=== PATIENT | female | born 1940 | race Caucasian/White ===

== ENCOUNTER → 2020-04-02 08:06 | Outpatient (BNVA) | payer MEDICARE, SELFPAY | PROVIDERS: PCP Internal Medicine; Visit Provider Hospitalist | DX: R91.8 Other nonspecific abnormal finding of lung field (principal); J18.9 Pneumonia, unspecified organism; J45.909 Unspecified asthma, uncomplicated; D80.1 Nonfamilial hypogammaglobulinemia; J31.0 Chronic rhinitis | CPT/HCPCS: 99212 ==

== ENCOUNTER → 2020-07-29 08:10 | Outpatient (BNVA) | payer MEDICARE, SELFPAY | PROVIDERS: PCP Internal Medicine; Visit Provider Hospitalist | DX: J31.0 Chronic rhinitis (principal); D80.1 Nonfamilial hypogammaglobulinemia; J45.50 Severe persistent asthma, uncomplicated; J18.9 Pneumonia, unspecified organism; R91.8 Other nonspecific abnormal finding of lung field | CPT/HCPCS: 99212 ==

== ENCOUNTER 2020-11-25 13:05 | Outpatient (REF) | payer MEDICARE, SELFPAY ==
--- NOTE | ~2020-11-25 | CT_ITS ---
EXAMINATION: CT CHEST WITHOUT CONTRAST CLINICAL INFORMATION: Pulmonary nodule COMPARISON: Previous chest x-ray February 2019 TECHNIQUE: Multidetector volumetric CT imaging of the chest was done. Axial MIP volume rendering provided. Sagittal and coronal reformatted images were obtained. This CT examination was performed using dose optimization techniques as appropriate, variously including the following: *Automated exposure control *Adjustment of mA and/or kV according to patient size (this includes techniques or standardized protocols for targeted exams where dose is matched to indication/reason for exam; i.e. extremities or head) *Use of iterative reconstruction technique DLP: 208 mGy-cm FINDINGS: LUNGS: There is a 1.3 cm triangular-shaped right lower lobe nodule axial image 322 series 5. There is mild biapical pleural and parenchymal scarring. There is evidence of mild airways disease with areas of scattered areas of bronchial soft tissue opacification and increased peribronchial attenuation.. There are numerous small bilateral micronodules, calcified and noncalcified. Largest pulmonary nodules are 3 mm calcified right lower lobe nodules axial image 203 and 205 series 5 noncalcified left lower lobe 3 mm nodule axial image 238 series 5.. MEDIASTINUM: There are no enlarged hilar or mediastinal lymph nodes. The heart does not appear enlarged. There is mild coronary artery calcification. There is a trace pericardial effusion. There is question of low attenuation mediastinal lymphadenopathy persists fluid in the superior pericardial recess anterior to the left mainstem bronchus. This area measures approximately 1 x 1.8 cm Axial image 27 series 3. PLEURA: There is no pleural effusion. No pleural mass or thickening. AXILLA: No lymphadenopathy. UPPER ABDOMEN: There are liver cysts. OSSEOUS STRUCTURES: There are degenerative changes of the spine. There is a 1 x 2 cm sclerotic lesion in the left scapula. CT/CT chest wo con IMPRESSION: 1.3 cm triangular shaped right lower lobe nodule. Additional smaller calcified and noncalcified micronodules, largest measuring 3 mm. Question low-attenuation mediastinal lymph node(s) anterior to the left mainstem bronchus versus fluid in the superior pericardial recess. Coronary artery calcification. Liver cysts.
== END 2020-11-25 13:06 | disposition home or self-care (01) ==
LOC: HO.CT 13:05
PROVIDERS: Visit Provider Hospitalist
DX: R91.8 Other nonspecific abnormal finding of lung field (principal)
CPT/HCPCS: 71250

== ENCOUNTER → 2021-01-19 08:14 | Outpatient (BNVA) | payer MEDICARE, SELFPAY | PROVIDERS: PCP Internal Medicine; Visit Provider Hospitalist | DX: R91.8 Other nonspecific abnormal finding of lung field (principal); J45.50 Severe persistent asthma, uncomplicated; J31.0 Chronic rhinitis; D80.1 Nonfamilial hypogammaglobulinemia; J18.9 Pneumonia, unspecified organism | CPT/HCPCS: 99212 ==

== ENCOUNTER 2021-02-27 07:04 | Outpatient (REF) | payer MEDICARE, SELFPAY ==
--- NOTE | ~2021-02-27 | CT_ITS ---
EXAMINATION: CT CHEST WITHOUT CONTRAST CLINICAL INFORMATION: Follow-up pulmonary nodules. COMPARISON: Previous chest x-ray most recent February [address] November 2020. TECHNIQUE: Multidetector volumetric CT imaging of the chest was done. Axial MIP volume rendering provided. Sagittal and coronal reformatted images were obtained. This CT examination was performed using dose optimization techniques as appropriate, variously including the following: *Automated exposure control *Adjustment of mA and/or kV according to patient size (this includes techniques or standardized protocols for targeted exams where dose is matched to indication/reason for exam; i.e. extremities or head) *Use of iterative reconstruction technique DLP: 112 mGy-cm FINDINGS: LUNGS: There is biapical pleural and parenchymal scarring. There is a new 5 mm right upper lobe nodule axial image 251 series 7. There is a new 4 mm left upper lobe nodule axial image 205 series 7. The previously identified irregularly-shaped 1.3 cm right lower lobe nodule on November 2020 exam is no longer seen. The remaining numerous small calcified and noncalcified pulmonary nodules or micronodules are otherwise stable. MEDIASTINUM: The heart does not appear enlarged. There is a trace pericardial effusion that is stable. There is a small amount of fluid seen in the superior pericardial recess that is stable. There are no enlarged hilar or mediastinal lymph nodes. PLEURA: There is no pleural effusion. No pleural mass or thickening. AXILLA: No lymphadenopathy. UPPER ABDOMEN: There are liver cysts that are stable. The largest measures 2 x 3 cm in the lateral segment of the left lobe. There may be diverticulosis of the colon. OSSEOUS STRUCTURES: There are mild degenerative changes of the spine. There is a stable sclerotic lesion in the left scapula. CT/CT chest wo con IMPRESSION: Resolved 1.3 cm triangular-shaped right lower lobe nodule from November 2020. New bilateral upper lobe nodules, largest measuring 5 mm. Infectious, inflammatory and neoplastic processes should be considered. Waxing and waning appearance favors an infectious or inflammatory process. Stable smaller nodules or micronodules. Stable biapical pleural and parenchymal scarring.
== END 2021-02-27 07:05 | disposition home or self-care (01) ==
LOC: HO.CT 07:04
PROVIDERS: PCP Internal Medicine; Visit Provider Hospitalist
DX: R91.8 Other nonspecific abnormal finding of lung field (principal)
CPT/HCPCS: 71250

== ENCOUNTER → 2021-03-03 15:01 | Outpatient (BNVA) | payer MEDICARE, SELFPAY | PROVIDERS: PCP Internal Medicine; Visit Provider Hospitalist | DX: J31.0 Chronic rhinitis (principal); J45.50 Severe persistent asthma, uncomplicated; D80.1 Nonfamilial hypogammaglobulinemia; R91.8 Other nonspecific abnormal finding of lung field | CPT/HCPCS: 99212 ==

== ENCOUNTER → 2021-09-02 08:16 | Outpatient (BNVA) | payer MEDICARE, SELFPAY | PROVIDERS: PCP Internal Medicine; Visit Provider Hospitalist | DX: R91.8 Other nonspecific abnormal finding of lung field (principal); J45.50 Severe persistent asthma, uncomplicated; J31.0 Chronic rhinitis; D80.1 Nonfamilial hypogammaglobulinemia | CPT/HCPCS: 99212 ==

== ENCOUNTER 2022-02-08 08:53 | Outpatient (REF) | payer MEDICARE, SELFPAY ==
--- NOTE | ~2022-02-08 | CT_ITS ---
EXAMINATION: CT CHEST WITHOUT CONTRAST CLINICAL INFORMATION: Follow-up pulmonary nodules COMPARISON: Previous CT recent February 2021 TECHNIQUE: Multidetector volumetric CT imaging of the chest was done. Axial MIP volume rendering provided. Sagittal and coronal reformatted images were obtained. This CT examination was performed using dose optimization techniques as appropriate, variously including the following: *Automated exposure control *Adjustment of mA and/or kV according to patient size (this includes techniques or standardized protocols for targeted exams where dose is matched to indication/reason for exam; i.e. 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 There are new clustered posterior segment right upper lobe small nodules, largest nodule measuring 2 to 3 mm for example axial image 205 series 7. There are new clustered left lower lobe nodules, largest measuring 3 mm for example axial image 3:30 series 7. There are several new adjacent are slightly clustered semisolid right lower lobe nodules, largest measuring 4 mm axial image 239 series 7. There are several new clustered right upper lobe nodules, largest measuring 4 mm axial image 100 series 7. Previously identified 7 mm right upper lobe nodule axial image 253 series 7 is no longer seen. There are scattered new small groundglass attenuation areas in the right lower lobe largest measuring 1 cm axial image 247 series 7. MEDIASTINUM: The mediastinum is normal. CORONARY ARTERY CALCIFICATION: None visualized on this study. PLEURA: There is no pleural effusion. No pleural mass or thickening. AXILLA: No lymphadenopathy. UPPER ABDOMEN: Stable liver lesions probably representing cysts. Diverticulosis of the colon. OSSEOUS STRUCTURES: Degenerative changes of the spine. CT/CT chest wo IV con IMPRESSION: Waxing and waning appearance of bilateral pulmonary nodules. This favors an infectious or inflammatory process. There are multiple new adjacent or clustered pulmonary nodules with tree in bud appearance suggestive of airways disease, greatest in the right upper and left lower lobes. New groundglass attenuation areas in the right lower lobe. Fleischner guidelines were followed.
== END 2022-02-08 08:54 | disposition home or self-care (01) ==
LOC: HO.CT 08:53
PROVIDERS: PCP Internal Medicine; Visit Provider Hospitalist
DX: R91.8 Other nonspecific abnormal finding of lung field (principal)
CPT/HCPCS: 71250

== ENCOUNTER → 2022-03-24 08:16 | Outpatient (BNVA) | payer MEDICARE, SELFPAY | PROVIDERS: PCP Internal Medicine; Visit Provider Hospitalist | DX: R91.8 Other nonspecific abnormal finding of lung field (principal); J45.50 Severe persistent asthma, uncomplicated; J31.0 Chronic rhinitis; D80.1 Nonfamilial hypogammaglobulinemia | CPT/HCPCS: 99212 ==

== ENCOUNTER → 2022-09-28 08:19 | Outpatient (BNVA) | payer MEDICARE, SELFPAY | PROVIDERS: PCP Internal Medicine; Visit Provider Hospitalist | DX: J45.50 Severe persistent asthma, uncomplicated (principal); J31.0 Chronic rhinitis; R91.8 Other nonspecific abnormal finding of lung field; D80.1 Nonfamilial hypogammaglobulinemia | CPT/HCPCS: 99212 ==

== ENCOUNTER 2023-02-21 08:24 | Outpatient (REF) | payer MEDICARE, SELFPAY ==
--- NOTE | ~2023-02-21 | CT_ITS ---
EXAMINATION: CT CHEST WITHOUT CONTRAST CLINICAL INFORMATION: Follow-up pulmonary nodules COMPARISON: Previous chest CT most recent January 2022 TECHNIQUE: Multidetector volumetric CT imaging of the chest was done. Axial MIP volume rendering provided. Sagittal and coronal reformatted images were obtained. This CT examination was performed using dose optimization techniques as appropriate, variously including the following: *Automated exposure control *Adjustment of mA and/or kV according to patient size (this includes techniques or standardized protocols for targeted exams where dose is matched to indication/reason for exam; i.e. extremities or head) *Use of iterative reconstruction technique DLP: 114 mGy-cm FINDINGS: LUNGS: Mild biapical pleural parenchymal scarring. Clustered peribronchial nodules and increased peribronchial attenuation and bronchial wall thickening in the right upper lobe axial image 138 series 5 increased from previous exam. Clustered peribronchial nodules or tree-in-bud appearance right upper lobe probably representing airways disease axial image 206 series 5. This is still seen but overall decreased in density and decreased size in nodules compared to exam. There is a new 4 x 6 mm left upper lobe nodule with surrounding groundglass attenuation axial image 219 series 5. Including surrounding groundglass attenuation this measures up to 1.2 cm in diameter There are adjacent more inferior clustered peribronchial nodules for example axial image similar to previous exam. Similar clustered peribronchial nodules in the inferior segment of the lingula axial image 367 series 5 similar to 2022 exam. Clustered peribronchial nodules and left lower lobe axial image 3:30 series 5 slightly improved from 2022 exam. New or increasing mild bronchial wall thickening, increased bronchial attenuation and small adjacent peribronchial nodules in the right lower lobe example axial image 392 series 5. Scattered areas of scarring or subsegmental atelectasis. MEDIASTINUM: The mediastinum is normal. CORONARY ARTERY CALCIFICATION: Mild PLEURA: There is no pleural effusion. No pleural mass or thickening. AXILLA: No lymphadenopathy. UPPER ABDOMEN: Liver cysts. OSSEOUS STRUCTURES: Mild degenerative changes of the spine. CT/CT chest wo IV con IMPRESSION: Waxing and waning appearance of clustered peribronchial nodules/likely airways disease throughout both lungs. There is a new 4 x 6 mm solid left upper lobe nodule with surrounding groundglass attenuation, including surrounding groundglass attenuation measuring up to 1.[address] follow-up of this finding recommended recommended. Fleischner guidelines were followed.
== END 2023-02-21 08:25 | disposition home or self-care (01) ==
LOC: HO.CT 08:24
PROVIDERS: PCP Internal Medicine; Visit Provider Hospitalist
DX: R91.8 Other nonspecific abnormal finding of lung field (principal)
CPT/HCPCS: 71250

== ENCOUNTER 2023-04-04 10:55 | Outpatient (AMB) | payer MEDICARE, SELFPAY ==
[2023-04-04 11:11] VITALS: PULSE 76; O2SAT 93; BMI 24.5
--- NOTE | 2023-04-04 11:11 | MHC.OFFVIS ---
Intake Vital Signs 04/04/23 11:11 Height 5 ft 2 in Weight 134 lb BMI 24.5 Pulse 76 Pulse Source Pulse Oximeter Pulse Oximetry (%) 93 Oxygen Delivery Method Room Air Intake Visit Reasons: Pulm Nodules Outpatient Dietitian Required: No Allergies alendronate sodium [Fosamax] Allergy (Severe, Verified 04/04/23 11:12) Rash and Hives doxycycline Allergy (Severe, Verified 04/04/23 11:12) Numbness Lips epinephrine Allergy (Severe, Verified 04/04/23 11:12) Tachycardia morphine Allergy (Severe, Verified 04/04/23 11:12) Vomiting terazosin Allergy (Severe, Verified 04/04/23 11:12) Rash and Hives Avelox Allergy (Severe, Uncoded 04/04/23 11:12) Anaphylaxis Erythromycin Allergy (Severe, Uncoded 04/04/23 11:12) Cramping Floxin Allergy (Severe, Uncoded 04/04/23 11:12) Rash PCN Allergy (Severe, Uncoded 04/04/23 11:12) Rash HPI HPI Comments History of Present Illness Details The patient is a 83 y/o woman with a history of asthma, moderate persistent. Recently she had pulmonary function studies and reviewed in. Appears that she has a mild obstruction. In addition to that her lung volumes have slightly decreased and has a mild diffusion impairment. I need to get her previous PFTs to review and compare. More recently she was exposed to sick contact, great grandchild. She did spend close time with him. After that she noticed that she started developing URI like symptoms. She did have any earache. Denies sore throat. Stat have worsening wheezing coughing. She went to her primary care doctor in order a prednisone taper in addition to Z-Silverio. She took half dose of the prednisone and did not take the zythromax. She went to see her primary care doctor she was given levofloxacin and also prednisone again. She did have a chest x-ray that was read as normal however, after I looked that she did have a left lower lobe opacity. She also had volume loss on the left side. At some point we need to repeat this x-ray. She had blood work although it we do not have all the blood work. D-dimer appear to be less than 0.5. She also had blood cultures which were no growth today. She is still using the Dulera. She felt better when she was using the Perforomist and budesonide, but, she was also using the Dulera in conjunction which is too much long-acting beta agonist. We did review her blood work her IgE level was normal and her eosinophil level were normal suggesting that she is not a candidate for biologic therapy. 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 At this point will try prophylactic antibiotics to treat her chronic bronchitis. We did talk about IgG infusions. However, we really have to weigh the risks and benefits. She did follow-up with her primary care doctor and based on her abnormal chest x-ray and her persistent symptoms in the lack of response she did have a CT scan of the chest done radiology imaging which I personally reviewed. It demonstrated multiple ground-glass the nodular densities in a bronchovascular distribution with some tree-in-bud in these were bilateral primarily in the periphery. No significant lymphadenopathy. These appear to be typical of a lower respiratory viral infection. Sometimes postviral bacterial infections can also manifest and this form. Less likely malignancy. Inflammatory conditions are also possible. The patient does have arthritis and also rash. 09/28/2022 the patient is here for pulmonary follow-up visit. Overall she is doing well from a respiratory status. She does complaint of sinus congestion and postnasal drip. Moderate severity. She has been using the nasal sprays in addition to the nasal rinsing with partial improvement of the symptoms. The patient's did get her Dulera and her asthma has been better controlled. She has not had to use her rescue medication. She does use a nebulizer at times. The patient did have a sleep study which we reviewed in the office. It was an in-lab study. It was not optimal study since she had a hard time with the vice and hard time staying asleep. However the sleep study she was awake. Still she did have mild sleep apnea during the study. No evidence of any significant hypoxia or significant tachycardia or tachyarrhythmias. The patient does sleep supine all the time. We did talk about positional therapy. She will try that 1st either with a wedge pillow or sleeping on her side and we can always either repeat the overnight oximetry or repeat home sleep study to see if that is adequate. Right now though the patient would like to hold off on CPAP therapy which I think is reasonable. The patient also had a CT scan back in the fall 2021 and she is scheduled to have a repeat CT scan in the fall of 2022 to follow-up with pulmonary nodules the patient also will start Singulair to see if this helps with her allergies. 04/04/2023 the patient is here for a pulmonary follow-up visit. She has had a hard time with breathing for the last 4 weeks. She was very ill and she could barely move she states. She did see her primary care doctor. She had a course of antibiotics and prednisone and then she was given another course but she decided not to take it because she was tired of taking medications. The patient overall feels a little better still having a cough with productive mucus yellowish in color. We did provide with a nebulized treatment in the office with hypertonic saline and levo albuterol to try to get a sputum sample but she was not able to do so. Therefore I did give her a cup in order for her to provide a sputum culture and also for Gram stain and AFB. Prior to her getting sick she did undergo a CT scan of the chest that we personally reviewed in the office. She does have waxing waning pulmonary nodules. Now she has a new nodule measuring about 6-8 mm in size in the left upper lobe area. Please appears to be subsolid in nature. It is concerning in appearance but she has had nodules that wax and wane in the past. Therefore starting of this is a smoldering infectious process versus a concerning finding. She will go ahead and treat her for postviral bacterial infection and after that she can go back on her chronic macrolide suppression therapy. Will go ahead and start budesonide nebulized therapy to try to minimize her use of prednisone and see if this provides some relief. In the meantime I did explain to her the patient is no better or if we can get a sputum sample then bronchoscopy will be helpful. [facility] Medical History (Updated 04/04/23 @ 22:14 by Mansoor Orta MD) Chronic rhinitis Hypogammaglobulinemia Asthma Pneumonitis Pulmonary nodules Social History (Updated 03/03/21 @ 15:29 by CLAUDIA Jacob) Patient Tobacco Use Status: Former Tobacco user Tobacco use type: Cigarette Years Smoked: 20 years Review of Systems Const Denies night sweats ENT Denies change in voice, Denies lip swelling, Denies mouth pain, Reports nasal congestion, Reports nasal discharge and Denies tongue swelling Card Denies chest pain, Reports dyspnea and Reports dyspnea on exertion Resp Reports change in phlegm color, Reports chest congestion, Reports cough, Denies hemoptysis, Reports dyspnea, Reports dyspnea on exertion and Reports wheezing GI Denies abdominal pain Musc Denies no additional complaints Neuro Denies Neuro-related abnormal movements Psych Denies no additional complaints Johny/Lymph Denies easy bleeding and Denies lymphadenopathy Aller/Immun Denies lip swelling, Denies tongue swelling and Reports wheezing Physical Exam Vital Signs: Last Vital Signs Pulse 76 04/04/23 11:11 Pulse Ox 93 04/04/23 11:11 Oxygen Delivery Method Room Air 04/04/23 11:11 BMI result Body Mass Index 24.5 Const General: alert Eyes Pupils: Equal, round and reactive pupils present Neck Neck: Yes normal visual inspection, Yes full ROM and Yes no lymphadenopathy Chest Chest palpation & inspection: normal inspection of the chest Resp Effort & Inspection: prolonged expiratory phase Auscultation: no rales, rhonchi, wheezes and diminished lung sounds Cardio Rate: regular rate Rhythm: regular rhythm Heart sounds: S1 normal heart sound present and S2 normal heart sound present GI Palpation (GI): Soft to palpation and nontender Auscultation: normal bowel sounds Skin General skin exam: rashes and/or lesions noted Neuro Cranial nerves: Yes Equal, round and reactive pupils present Office Procedures Nebulizer Treatment Nebulizer Treatment [id number] RX initial, or Nebulizer Subsequent Treatment Office Meds levalbuterol HCl 1.25 mg/3 mL solution for nebulization Performing Provider: Mansoor Orta MD Performing Location: [facility] Administered by: Hilda Gamez LPN on 04/04/23 11:36 Dose Route Admin Location Dispensed Lot Number Expiration Date [employer] 1.25 mg inhalation 3 mL 60 09/22/22 1668-7162-64 [employer] sodium chloride 3 % for nebulization Performing Provider: Mansoor Orta MD Performing Location: [facility] [place] [facility] Administered by: Hilda Gamez LPN on 04/04/23 11:36 Dose Route Admin Location Dispensed Lot Number Expiration Date [employer] 3 mL inhalation 3 mL 09/22/24 [id number] MYLAN Results Reviewed Results Reviewed: [address] [address] [address] Scan Report Signed Patient: Zena Urban MR#: [id number] : 1940 Acct:[id number] Age/Sex: 82 / F ADM Date: 02/21/23 Loc: HO.CT Attending Dr: Mansoor Orta MD Ordering Physician: Mansoor Orta MD Date of Service: 02/21/23 Procedure(s): CT chest wo IV con Accession Number(s): [id number] cc: ELIO TAVERAS MD; Mansoor Orta MD~ EXAMINATION: CT CHEST WITHOUT CONTRAST CLINICAL INFORMATION: Follow-up pulmonary nodules COMPARISON: Previous chest CT most recent January 2022 TECHNIQUE: Multidetector volumetric CT imaging of the chest was done. Axial MIP volume rendering provided. Sagittal and coronal reformatted images were obtained. This CT examination was performed using dose optimization techniques as appropriate, variously including the following: *Automated exposure control *Adjustment of mA and/or kV according to patient size (this includes techniques or standardized protocols for targeted exams where dose is matched to indication/reason for exam; i.e. extremities or head) *Use of iterative reconstruction technique DLP: 114 mGy-cm FINDINGS: LUNGS: Mild biapical pleural parenchymal scarring. Clustered peribronchial nodules and increased peribronchial attenuation and bronchial wall thickening in the right upper lobe axial image 138 series 5 increased from previous exam. Clustered peribronchial nodules or tree-in-bud appearance right upper lobe probably representing airways disease axial image 206 series 5. This is still seen but overall decreased in density and decreased size in nodules compared to exam. There is a new 4 x 6 mm left upper lobe nodule with surrounding groundglass attenuation axial image 219 series 5. Including surrounding groundglass attenuation this measures up to 1.2 cm in diameter There are adjacent more inferior clustered peribronchial nodules for example axial image similar to previous exam. Similar clustered peribronchial nodules in the inferior segment of the lingula axial image 367 series 5 similar to 2022 exam. Clustered peribronchial nodules and left lower lobe axial image 3:30 series 5 slightly improved from 2022 exam. New or increasing mild bronchial wall thickening, increased bronchial attenuation and small adjacent peribronchial nodules in the right lower lobe example axial image 392 series 5. Scattered areas of scarring or subsegmental atelectasis. MEDIASTINUM: The mediastinum is normal. CORONARY ARTERY CALCIFICATION: Mild PLEURA: There is no pleural effusion. No pleural mass or thickening. AXILLA: No lymphadenopathy. UPPER ABDOMEN: Liver cysts. OSSEOUS STRUCTURES: Mild degenerative changes of the spine. CT/CT chest wo IV con IMPRESSION: Waxing and waning appearance of clustered peribronchial nodules/likely airways disease throughout both lungs. There is a new 4 x 6 mm solid left upper lobe nodule with surrounding groundglass attenuation, including surrounding groundglass attenuation measuring up to 1.[address] follow-up of this finding recommended recommended. Fleischner guidelines were followed. 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 (5) Bronchitis: Code(s): J40 - Bronchitis, not specified as acute or chronic Plan start Bactrim x 14 days Sputum cx and AFB restart Azithromycin MWF afterwards consider bronchosocpy if no better continue Dulera short-acting beta agonist as needed continue Singulair Continue nasal therapy with Neti bottle and also fluticasone and Astelin nasal spray CPT with Acapella valve daily CT chest in 3-6 month F/U 3-4 weeks Orders: Orders Sputum Cult + Gram stain Today R91.8 - Other nonspecific abnormal finding of lung field AMB Nebulizer Treatment Today J45.909 - Unspecified asthma, uncomplicated Acid-fast Culture + Smear Today R91.8 - Other nonspecific abnormal finding of lung field Medications: New sulfamethoxazole-trimethoprim 800-160 mg (Bactrim DS) 1 tab PO BID 14 days 28 tabs 0RF budesonide 0.5 mg (2 mL) inhalation BID 30 days 120 mL 11RF J44.9 - Chronic obstructive pulmonary disease, unspecified Refilled mometasone-formoterol 200-5 mcg/actuation (Dulera) 2 puffs inhalation Q12H 13 ea 8RF Coding Level of Care Code Tele Est Pt Level 5 (09413) Diagnoses Severe persistent asthma without complication J45.50 Asthma complication type: uncomplicated Asthma persistence: persistent Asthma severity: severe Pulmonary nodules R91.8 Chronic rhinitis J31.0 Hypogammaglobulinemia D80.1 Bronchitis J40 CPT Codes Nebulizer Treatment - Nebulizer Treatment, initial or subsequent: [id number] RX initial, or Nebulizer Subsequent Treatment ([id number]) Time Spent (min) 45
== END 2023-04-04 11:52 | disposition home or self-care (01) ==
PROVIDERS: PCP Internal Medicine; Visit Provider Hospitalist
DX: J45.50 Severe persistent asthma, uncomplicated (principal); R91.8 Other nonspecific abnormal finding of lung field; J31.0 Chronic rhinitis; D80.1 Nonfamilial hypogammaglobulinemia
CPT/HCPCS: 99215

== ENCOUNTER → 2023-04-04 10:55 | Outpatient (BNVA) | payer MEDICARE, SELFPAY | PROVIDERS: PCP Internal Medicine; Visit Provider Hospitalist | DX: J45.50 Severe persistent asthma, uncomplicated (principal); J31.0 Chronic rhinitis; R91.8 Other nonspecific abnormal finding of lung field; D80.1 Nonfamilial hypogammaglobulinemia; J40 Bronchitis, not specified as acute or chronic | CPT/HCPCS: 94640; 99212 ==

== ENCOUNTER 2023-05-05 10:54 | Outpatient (AMB) | payer MEDICARE, SELFPAY ==
[2023-05-05 11:06] VITALS: BP 128/70; PULSE 76; O2SAT 96; BMI 23.8
--- NOTE | 2023-05-05 11:06 | A.OFFVIS_ITS ---
Intake Vital Signs 05/05/23 11:06 Height 5 ft 2 in Weight 130 lb BMI 23.8 BP 128/70 Blood Pressure Location Lt brachial Position Sitting Pulse 76 Pulse Source Pulse Oximeter Pulse Oximetry (%) 96 Oxygen Delivery Method Room Air Intake Visit Reasons: Pulm Nodules [employer] Promotion Required: No Allergies alendronate sodium [Fosamax] Allergy (Severe, Verified 05/05/23 11:08) Rash and Hives doxycycline Allergy (Severe, Verified 05/05/23 11:08) Numbness Lips epinephrine Allergy (Severe, Verified 05/05/23 11:08) Tachycardia morphine Allergy (Severe, Verified 05/05/23 11:08) Vomiting terazosin Allergy (Severe, Verified 05/05/23 11:08) Rash and Hives Avelox Allergy (Severe, Uncoded 05/05/23 11:08) Anaphylaxis Erythromycin Allergy (Severe, Uncoded 05/05/23 11:08) Cramping Floxin Allergy (Severe, Uncoded 05/05/23 11:08) Rash PCN Allergy (Severe, Uncoded 05/05/23 11:08) Rash HPI HPI Comments History of Present Illness Details The patient is a 83 y/o woman with a history of asthma, moderate persi stent. Recently she had pulmonary function studies and reviewed in. Appears that she has a mild obstruction. In addition to that her lung volumes have slightly decreased and has a mild diffusion impairment. I need to get her previous PFTs to review and compare. More recently she was exposed to sick contact, great grandchild. She did spend close time with him. After that she noticed that she started developing URI like symptoms. She did have any earache. Denies sore throat. Stat have worsening wheezing coughing. She went to her primary care doctor in order a prednisone taper in addition to Z-Silverio. She took half dose of the prednisone and did not take the zythromax. She went to see her primary care doctor she was given levofloxacin and also prednisone again. She did have a chest x-ray that was read as normal however, after I looked that she did have a left lower lobe opacity. She also had volume loss on the left side. At some point we need to repeat this x-ray. She had blood work although it we do not have all the blood work. D-dimer appear to be less than 0.5. She also had blood cultures which were no growth today. She is still using the Dulera. She felt better when she was using the Perforomist and budesonide, but, she was also using the Dulera in conjunction which is too much long-acting beta agonist. We did review her blood work her IgE level was normal and her eosinophil level were normal suggesting that she is not a candidate for biologic therapy. 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 At this point will try prophylactic antibiotics to treat her chronic bronchitis. We did talk about IgG infusions. However, we really have to weigh the risks and benefits. She did follow-up with her primary care doctor and based on her abnormal chest x-ray and her persistent symptoms in the lack of response she did have a CT scan of the chest done radiology imaging which I personally reviewed. It demonstrated multiple ground- glass the nodular densities in a bronchovascular distribution with some tree-in-bud in these were bilateral primarily in the periphery. No significant lymphadenopathy. These appear to be typical of a lower respiratory viral infection. Sometimes postviral bacterial infections can also manifest and this form. Less likely malignancy. Inflammatory conditions are also possible. The patient does have arthritis and also rash. 09/28/2022 the patient is here for pulmonary follow-up visit. Overall she is doing well from a respiratory status. She does complaint of sinus congestion and postnasal drip. Moderate severity. She has been using the nasal sprays in addition to the nasal rinsing with partial improvement of the symptoms. The patient's did get her Dulera and her asthma has been better controlled. She has not had to use her rescue medication. She does use a nebulizer at times. The patient did have a sleep study which we reviewed in the office. It was an in- lab study. It was not optimal study since she had a hard time with the vice and hard time staying asleep. However the sleep study she was awake. Still she did have mild sleep apnea during the study. No evidence of any significant hypoxia or significant tachycardia or tachyarrhythmias. The patient does sleep supine all the time. We did talk about positional therapy. She will try that 1st either with a wedge pillow or sleeping on her side and we can always either repeat the overnight oximetry or repeat home sleep study to see if that is adequate. Right now though the patient would like to hold off on CPAP therapy which I think is reasonable. The patient also had a CT scan back in the fall 2021 and she is scheduled to have a repeat CT scan in the fall of 2022 to follow-up with pulmonary nodules the patient also will start Singulair to see if this helps with her allergies. 04/04/2023 the patient is here for a pul monary follow-up visit. She has had a hard time with breathing for the last 4 weeks. She was very ill and she could barely move she states. She did see her primary care doctor. She had a course of antibiotics and prednisone and then she was given another course but she decided not to take it because she was tired of taking medications. The patient overall feels a little better still having a cough with productive mucus yellowish in color. We did provide with a nebulized treatment in the office with hypertonic saline and levo albuterol to try to get a sputum sample but she was not able to do so. Therefore I did give her a cup in order for her to provide a sputum culture and also for Gram stain and AFB. Prior to her getting sick she did undergo a CT scan of the chest that we personally reviewed in the office. She does have waxing waning pulmonary nodules. Now she has a new nodule measuring about 6-8 mm in size in the left upper lobe area. Please appears to be subsolid in nature. It is concerning in appearance but she has had nodules that wax and wane in the past. Therefore starting of this is a smoldering infectious process versus a concerning finding. She will go ahead and treat her for postviral bacterial infection and after that she can go back on her chronic macrolide suppression therapy. Will go ahead and start budesonide nebulized therapy to try to minimize her use of prednisone and see if this provides some relief. In the meantime I did explain to her the patient is no better or if we can get a sputum sample then bronchoscopy will be helpful. 05/05/2023 the patient is here for a pulm onary follow-up visit. Overall the patient is feeling better. She did finish the Bactrim and also the prednisone. She is back to her baseline. The patient has been using her respiratory medications. We did talk about potentially bronchoscopy her symptoms were not better but at this point the patient is indeed better. His sputum culture was not able to be done however. The patient had been on azithromycin 3 times a week to treat her immunodeficiency. She does have a decrease in the IgG levels both the subclass 1 subclass 2 suggesting a specific immunodeficiency. The patient will continue on the azithromycin for the next few months until she has a repeat CT scan in August. The patient did have a new 6 mm pulmonary nodule documented on the CT scan in January 2023. Therefore will repeat the CT scan with hopes that the nodule resolves or stays stable. [facility] Medical History (Updated 04/04/23 @ 22:14 by Mansoor Orta MD) Chronic rhinitis Hypogammaglobulinemia Asthma Pneumonitis Pulmonary nodules Social History (Updated 03/03/21 @ 15:29 by Madhavi Mario Latanya) Patient Tobacco Use Status: Former Tobacco user Tobacco use type: Cigarette Years Smoked: 20 years Review of Systems Const Denies night sweats ENT Denies change in voice, Denies lip swelling, Denies mouth pain, Reports nasal congestion, Reports nasal discharge and Denies tongue swelling Card Denies chest pain, Denies dyspnea and Reports dyspnea on exertion Resp Denies change in phlegm color, Denies chest congestion, Reports cough, Denies hemoptysis, Denies dyspnea, Reports dyspnea on exertion and Reports wheezing GI Denies abdominal pain Musc Denies no additional complaints Neuro Denies Neuro-related abnormal movements Psych Denies no additional complaints Johny/Lymph Denies easy bleeding and Denies lymphadenopathy Aller/Immun Denies lip swelling, Denies tongue swelling and Reports wheezing Physical Exam Vital Signs: Last Vital Signs Pulse 76 05/05/23 11:06 BP 128/70 05/05/23 11:06 Pulse Ox 96 05/05/23 11:06 Oxygen Delivery Method Room Air 05/05/23 11:06 BMI result Body Mass Index 23.8 Const General: alert Eyes Pupils: Equal, round and reactive pupils present Neck Neck: Yes normal visual inspection, Yes full ROM and Yes no lymphadenopathy Chest Chest palpation & inspection: normal inspection of the chest Resp Effort & Inspection: prolonged expiratory phase Auscultation: no rales, no rhonchi, no wheezes and diminished lung sounds Cardio Rate: regular rate Rhythm: regular rhythm Heart sounds: S1 normal heart sound present and S2 normal heart sound present GI Palpation (GI): Soft to palpation and nontender Auscultation: normal bowel sounds Skin General skin exam: rashes and/or lesions noted Neuro Cranial nerves: Yes Equal, round and reactive pupils present Assessment & Plan Assessment & Plan (1) Asthma: Code(s): J45.909 - Unspecified asthma, uncomplicated Qualifiers: Asthma complication type: uncomplicated Asthma persistence: persistent Asthma severity: severe Qualified Code(s): J45.50 - Severe persistent asthma, uncomplicated (2) Pulmonary nodules: Code(s): R91.8 - Other nonspecific abnormal finding of lung field (3) Chronic rhinitis: Code(s): J31.0 - Chronic rhinitis (4) Hypogammaglobulinemia: Code(s): 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 (5) Bronchitis: Code(s): J40 - Bronchitis, not specified as acute or chronic Plan Sputum cx and AFB if able Azithromycin MWF continue Dulera short-acting beta agonist as needed continue Singulair Continue nasal therapy with Neti bottle and also fluticasone and Astelin nasal spray CPT with Acapella valve daily CT chest August 2023 F/U August 2023 Orders: Orders CT chest wo IV con 09/05/23 R91.8 - Other nonspecific abnormal finding of lung field Medications: New azithromycin Take 1 tablet on Tuesday/Tuesday/Tuesday 250 mg PO 3XW 28 days 12 tabs 6RF K21.9 - Gastro-esophageal reflux disease without esophagitis Coding Level of Care Code Est Pt Level 4 (51779) Diagnoses Severe persistent asthma without complication J45.50 Asthma complication type: uncomplicated Asthma persistence: persistent Asthma severity: severe Pulmonary nodules R91.8 Chronic rhinitis J31.0 Hypogammaglobulinemia D80.1 Bronchitis J40 Time Spent (min) 17
== END 2023-05-05 11:22 | disposition home or self-care (01) ==
PROVIDERS: PCP Internal Medicine; Visit Provider Hospitalist
DX: J45.50 Severe persistent asthma, uncomplicated (principal); R91.8 Other nonspecific abnormal finding of lung field; J31.0 Chronic rhinitis; D80.1 Nonfamilial hypogammaglobulinemia; J40 Bronchitis, not specified as acute or chronic
CPT/HCPCS: 99214

== ENCOUNTER → 2023-05-05 10:54 | Outpatient (BNVA) | payer MEDICARE, SELFPAY | PROVIDERS: PCP Internal Medicine; Visit Provider Hospitalist | DX: R91.8 Other nonspecific abnormal finding of lung field (principal); J45.50 Severe persistent asthma, uncomplicated; J31.0 Chronic rhinitis; J40 Bronchitis, not specified as acute or chronic; D80.1 Nonfamilial hypogammaglobulinemia | CPT/HCPCS: 99212 ==

== ENCOUNTER 2023-08-16 07:43 | Outpatient (REF) | payer MEDICARE, SELFPAY ==
--- NOTE | ~2023-08-16 | CT_ITS ---
EXAMINATION: CT CHEST WITHOUT CONTRAST CLINICAL INFORMATION: Other nonspecific abnormal finding of lung field. COMPARISON: CT chest 02/21/2023: Waxing and waning appearance of clustered peribronchial nodules/likely airways disease throughout both lungs. There is a new 4 x 6 mm solid left upper lobe nodule with surrounding ground-glass attenuation, including surrounding groundglass attenuation measuring up to 1.[address] follow-up of this finding recommended recommended. TECHNIQUE: Multidetector volumetric CT imaging of the chest was done. Axial MIP volume rendering provided. Sagittal and coronal reformatted images were obtained. This CT examination was performed using dose optimization techniques as appropriate, variously including the following: *Automated exposure control *Adjustment of mA and/or kV according to patient size (this includes techniques or standardized protocols for targeted exams where dose is matched to indication/reason for exam; i.e. extremities or head) *Use of iterative reconstruction technique DLP: 95 mGy-cm. FINDINGS: LUNGS: Biapical pleural-parenchymal scarring is present, right greater than left. The previously seen new 9 mm nodule in the left upper lobe, with surrounding ground-glass opacity, has completely resolved with no residua. Previously seen increase in tree-in-bud opacities in the right upper lobe posteriorly have also improved (7:112, compare prior 5:138). Otherwise, appearances are essentially without significant change with scattered small pulmonary micronodules, some better, some new, but none appear suspicious for malignancy and all are under 3 mm in size. MEDIASTINUM: The mediastinum is normal. CORONARY ARTERY CALCIFICATION: None visualized on this study. PLEURA: There is no pleural effusion. No pleural mass or thickening. AXILLA: No lymphadenopathy. UPPER ABDOMEN: Unremarkable. Benign hepatic cysts are again seen. OSSEOUS STRUCTURES: Unremarkable. CT/CT chest wo IV con IMPRESSION: 1. The previously seen new 9 mm solid nodule with surrounding ground-glass halo in the left upper lobe, has completely resolved with no residua. 2. Previously seen increase in tree-in-bud opacities in the right upper lobe posteriorly have also improved. 3. Otherwise, appearances are essentially without significant change, with scattered small pulmonary micronodules, some better, some new, but none appear suspicious for malignancy and all are under 3 mm in size. Fleischner guidelines were followed.
== END 2023-08-16 07:44 | disposition home or self-care (01) ==
LOC: HO.CT 07:43
PROVIDERS: PCP Internal Medicine; Visit Provider Hospitalist
DX: R91.8 Other nonspecific abnormal finding of lung field (principal)
CPT/HCPCS: 71250

== ENCOUNTER 2023-08-31 08:28 | Outpatient (AMB) | payer MEDICARE, SELFPAY ==
[2023-08-31 08:31] VITALS: BP 126/62; PULSE 75; O2SAT 95; BMI 24.2
--- NOTE | 2023-08-31 08:31 | A.OFFVIS_ITS ---
Vital Signs 08/31/23 08:31 Height 5 ft 2 in Weight 132 lb 4.438 oz BMI 24.2 BP 126/62 Blood Pressure Location Lt brachial Position Sitting Pulse 75 Pulse Source Doppler Pulse Oximetry (%) 95 Oxygen Delivery Method Room Air Intake Visit Reasons: Pulm Nodules Allergies alendronate sodium [Fosamax] Allergy (Severe, Verified 08/31/23 08:34) Rash and Hives doxycycline Allergy (Severe, Verified 08/31/23 08:34) Numbness Lips epinephrine Allergy (Severe, Verified 08/31/23 08:34) Tachycardia morphine Allergy (Severe, Verified 08/31/23 08:34) Vomiting terazosin Allergy (Severe, Verified 08/31/23 08:34) Rash and Hives Avelox Allergy (Severe, Uncoded 05/05/23 11:08) Anaphylaxis Erythromycin Allergy (Severe, Uncoded 05/05/23 11:08) Cramping Floxin Allergy (Severe, Uncoded 05/05/23 11:08) Rash PCN Allergy (Severe, Uncoded 05/05/23 11:08) Rash HPI Comments Details: The patient is a 83 y/o woman with a history of asthma, moderate persistent. Recently she had pulmonary function studies and reviewed in. Appears that she has a mild obstruction. In addition to that her lung volumes have slightly decreased and has a mild diffusion impairment. I need to get her previous PFTs to review and compare. More recently she was exposed to sick contact, great grandchild. She did spend close time with him. After that she noticed that she started developing URI like symptoms. She did have any earache. Denies sore throat. Stat have worsening wheezing coughing. She went to her primary care doctor in order a prednisone taper in addition to Z-Silverio. She took half dose of the prednisone and did not take the zythromax. She went to see her primary care doctor she was given levofloxacin and also prednisone again. She did have a chest x-ray that was read as normal however, after I looked that she did have a left lower lobe opacity. She also had volume loss on the left side. At some point we need to repeat this x-ray. She had blood work although it we do not have all the blood work. D-dimer appear to be less than 0.5. She also had blood cultures which were no growth today. She is still using the Dulera. She felt better when she was using the Perforomist and budesonide, but, she was also using the Dulera in conjunction which is too much long-acting beta agonist. We did review her blood work her IgE level was normal and her eosinophil level were normal suggesting that she is not a candidate for biologic therapy. 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 At this point will try prophylactic antibiotics to treat her chronic bronchitis. We did talk about IgG infusions. However, we really have to weigh the risks and benefits. She did follow-up with her primary care doctor and based on her abnormal chest x-ray and her persistent symptoms in the lack of response she did have a CT scan of the chest done radiology imaging which I personally reviewed. It demonstrated multiple ground- glass the nodular densities in a bronchovascular distribution with some tree-in-bud in these were bilateral primarily in the periphery. No significant lymphadenopathy. These appear to be typical of a lower respiratory viral infection. Sometimes postviral bacterial infections can also manifest and this form. Less likely malignancy. Inflammatory conditions are also possible. The patient does have arthritis and also rash. 09/28/2022 the patient is here for pulmonary follow-up visit. Overall she is doing well from a respiratory status. She does complaint of sinus congestion and postnasal drip. Moderate severity. She has been using the nasal sprays in addition to the nasal rinsing with partial improvement of the symptoms. The patient's did get her Dulera and her asthma has been better controlled. She has not had to use her rescue medication. She does use a nebulizer at times. The patient did have a sleep study which we reviewed in the office. It was an in- lab study. It was not optimal study since she had a hard time with the vice and hard time staying asleep. However the sleep study she was awake. Still she did have mild sleep apnea during the study. No evidence of any significant hypoxia or significant tachycardia or tachyarrhythmias. The patient does sleep supine all the time. We did talk about positional therapy. She will try that 1st either with a wedge pillow or sleeping on her side and we can always either repeat the overnight oximetry or repeat home sleep study to see if that is adequate. Right now though the patient would like to hold off on CPAP therapy which I think is reasonable. The patient also had a CT scan back in the fall 2021 and she is scheduled to have a repeat CT scan in the fall of 2022 to follow-up with pulmonary nodules the patient also will start Singulair to see if this helps with her allergies. 04/04/2023 the patient is here for a pulmonary follow-up visit. She has had a hard time with breathing for the last 4 weeks. She was very ill and she could barely move she states. She did see her primary care doctor. She had a course of antibiotics and prednisone and then she was given another course but she decided not to take it because she was tired of taking medications. The patient overall feels a little better still having a cough with productive mucus yell owish in color. We did provide with a nebulized treatment in the office with hypertonic saline and levo albuterol to try to get a sputum sample but she was not able to do so. Therefore I did give her a cup in order for her to provide a sputum culture and also for Gram stain and AFB. Prior to her getting sick she did undergo a CT scan of the chest that we personally reviewed in the office. She does have waxing waning pulmonary nodules. Now she has a new nodule measuring about 6-8 mm in size in the left upper lobe area. Please appears to be subsolid in nature. It is concerning in appearance but she has had nodules that wax and wane in the past. Therefore starting of this is a smoldering infectious process versus a concerning finding. She will go ahead and treat her for postviral bacterial infection and after that she can go back on her chronic macrolide suppression therapy. Will go ahead and start budesonide nebulized therapy to try to minimize her use of prednisone and see if this provides some relief. In the meantime I did explain to her the patient is no better or if we can get a sputum sample then bronchoscopy will be helpful. 05/05/2023 the patient is here for a pulmonary follow-up visit. Overall the patient is feeling better. She did finish the Bactrim and also the prednisone. She is back to her baseline. The patient has been using her respiratory medications. We did talk about potentially bronchoscopy her symptoms were not better but at this point the patient is indeed better. His sputum culture was not able to be done however. The patient had been on azithromycin 3 times a week to treat her immunodeficiency. She does have a decrease in the IgG levels both the subclass 1 subclass 2 suggesting a specific immunodeficiency. The patient will continue on the azithromycin for the next few months until she has a repeat CT scan in August. The patient did have a new 6 mm pulmonary nodule documented on the CT scan in January 2023. Therefore will repeat the CT scan with hopes that the nodule resolves or stays stable. 08/31/2023 the patient is here for a pulmonary follow-up visit. At this time she is doing little better. Apparently she was in her usual state health until about a couple weeks ago when she went to the [facility]. There was call then she when the and she was out of her element. The patient did develop a cough also shortness breath and fatigue. She went to her primary care had a telehealth visit. Had an x-ray demonstrating a right lower lobe right middle lobe pneumonia. I did personally review the x-ray and I do agree with the airspace disease. The patient was placed on Levaquin 750 mg for 7 days. She tolerated well with any tendonitis. She was taking yogurt. She did stop the azithromycin while on it. She will go back on the azithromycin at this time. She will also need an EKG. The patient continues with respiratory therapy. Prior to getting sick she did have a CT scan of the chest which we personally reviewed. It appears that the 9 mm pulmonary nodule with halo had resolved in some of the treating budding also improved suggesting that the azithromycin has been helpful. Although no evidence of any right-sided pneumonia involving at that time. Likely she got sick right after she got the CT scan when she went to the [facility]. The patient did have a new pulmonary nodule measuring 6 mm in size. Will have to continue following serial CT scans at this time. [facility] Medical History (Updated 08/31/23 @ 21:52 by Mansoor Orta MD) Pneumonia Chronic rhinitis Hypogammaglobulinemia Asthma Pneumonitis Pulmonary nodules Social History (Updated 03/03/21 @ 15:29 by CLAUDIA Jacob) Patient Tobacco Use Status: Former Tobacco user Tobacco use type: Cigarette Years Smoked: 20 years Review of Systems Const Denies night sweats ENT Denies change in voice, Denies lip swelling, Denies mouth pain, Reports nasal congestion, Reports nasal discharge and Denies tongue swelling Card Denies chest pain, Denies dyspnea and Reports dyspnea on exertion Resp Denies change in phlegm color, Denies chest congestion, Reports cough, Denies hemoptysis, Denies dyspnea, Reports dyspnea on exertion and Reports wheezing GI Denies abdominal pain Musc Denies no additional complaints Neuro Denies Neuro-related abnormal movements Psych Denies no additional complaints Johny/Lymph Denies easy bleeding and Denies lymphadenopathy Aller/Immun Denies lip swelling, Denies tongue swelling and Reports wheezing Physical Exam Vital Signs: Last Vital Signs Pulse 75 08/31/23 08:31 BP 126/62 08/31/23 08:31 Pulse Ox 95 08/31/23 08:31 Oxygen Delivery Method Room Air 08/31/23 08:31 BMI result Body Mass Index 24.2 Const General: alert Eyes Pupils: Equal, round and reactive pupils present Neck Neck: Yes normal visual inspection, Yes full ROM and Yes no lymphadenopathy Chest Chest palpation & inspection: normal inspection of the chest Resp Effort & Inspection: prolonged expiratory phase Auscultation: no rales, no rhonchi, wheezes and diminished lung sounds Cardio Rate: regular rate Rhythm: regular rhythm Heart sounds: S1 normal heart sound present and S2 normal heart sound present GI Palpation (GI): Soft to palpation and nontender Auscultation: normal bowel sounds Skin General skin exam: rashes and/or lesions noted Neuro Cranial nerves: Yes Equal, round and reactive pupils present Results Reviewed Results Reviewed: [place] [id number] CT Scan Report Signed Patient: Zena Urban MR#: [id number] : 1940 Acct:[id number] Age/Sex: 83 / F ADM Date: 08/16/23 Loc: HO.CT Attending Dr: Mansoor Orta MD Ordering Physician: Mansoor Orta MD Date of Service: 08/16/23 Procedure(s): CT chest wo IV con Accession Number(s): [id number] cc: ELIO TAVERAS MD; Mansoor Orta MD~ EXAMINATION: CT CHEST WITHOUT CONTRAST CLINICAL INFORMATION: Other nonspecific abnormal finding of lung field. COMPARISON: CT chest 02/21/2023: Waxing and waning appearance of clustered peribronchial nodules/likely airways disease throughout both lungs. There is a new 4 x 6 mm solid left upper lobe nodule with surrounding ground-glass attenuation, including surrounding groundglass attenuation measuring up to 1.[address] follow-up of this finding recommended recommended. TECHNIQUE: Multidetector volumetric CT imaging of the chest was done. Axial MIP volume rendering provided. Sagittal and coronal reformatted images were obtained. This CT examination was performed using dose optimization techniques as appropriate, variously including the following: *Automated exposure control *Adjustment of mA and/or kV according to patient size (this includes techniques or standardized protocols for targeted exams where dose is matched to indication/reason for exam; i.e. extremities or head) *Use of iterative reconstruction technique DLP: 95 mGy-cm. FINDINGS: LUNGS: Biapical pleural-parenchymal scarring is present, right greater than left. The previously seen new 9 mm nodule in the left upper lobe, with surrounding ground-glass opacity, has completely resolved with no residua. Previously seen increase in tree-in-bud opacities in the right upper lobe posteriorly have also improved (7:112, compare prior 5:138). Otherwise, appearances are essentially without significant change with scattered small pulmonary micronodules, some better, some new, but none appear suspicious for malignancy and all are under 3 mm in size. MEDIASTINUM: The mediastinum is normal. CORONARY ARTERY CALCIFICATION: None visualized on this study. PLEURA: There is no pleural effusion. No pleural mass or thickening. AXILLA: No lymphadenopathy. UPPER ABDOMEN: Unremarkable. Benign hepatic cysts are again seen. OSSEOUS STRUCTURES: Unremarkable. CT/CT chest wo IV con IMPRESSION: 1. The previously seen new 9 mm solid nodule with surrounding ground-glass halo in the left upper lobe, has completely resolved with no residua. 2. Previously seen increase in tree-in-bud opacities in the right upper lobe posteriorly have also improved. 3. Otherwise, appearances are essentially without significant change, with scattered small pulmonary micronodules, some better, some new, but none appear suspicious for malignancy and all are under 3 mm in size. Fleischner guidelines were followed. Dictated By: Alfred King MD Signed By: <Electronically signed by Alfred King MD in OV> 08/24/23 214 DD/ 0821 TD/TT: Business Administrator: SS Assessment & Plan Assessment & Plan (1) Asthma: Code(s): J45.909 - Unspecified asthma, uncomplicated Category: Medical Qualifiers: Asthma severity: severe Asthma persistence: persistent Asthma complication type: uncomplicated Qualified Code(s): J45.50 - Severe persistent asthma, uncomplicated (2) Pulmonary nodules: Code(s): R91.8 - Other nonspecific abnormal finding of lung field Category: Medical (3) Chronic rhinitis: Code(s): J31.0 - Chronic rhinitis Category: Medical (4) Hypogammaglobulinemia: Code(s): 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 Category: Medical (5) Bronchitis: Code(s): J40 - Bronchitis, not specified as acute or chronic Category: Medical (6) Pneumonia: Code(s): J18.9 - Pneumonia, unspecified organism Category: Medical Qualifiers: Pneumonia type: due to unspecified organism Laterality: right Lung location: lower lobe of lung Qualified Code(s): J18.9 - Pneumonia, unspecified organism Plan Azithromycin MWF, need EKG continue Dulera short-acting beta agonist as needed continue Singulair Continue nasal therapy with Neti bottle and also fluticasone and Astelin nasal spray CPT with Acapella valve daily CXR in 4-6 weeks at [facility] CT chest F/U 6-12 months F/U 4 months Orders: Orders ECG 12 lead EKG Today J44.9 - Chronic obstructive pulmonary disease, unspecified Medications: Refilled azithromycin Take 1 tablet on Tuesday/Tuesday/Tuesday 250 mg PO 3XW 12 tabs 6RF 28 days K21.9 - Gastro-esophageal reflux disease without esophagitis Coding Level of Care Code Est Pt Level 4 (10795) Diagnoses Severe persistent asthma without complication J45.50 Asthma severity: severe Asthma persistence: persistent Asthma complication type: uncomplicated Pulmonary nodules R91.8 Chronic rhinitis J31.0 Hypogammaglobulinemia D80.1 Bronchitis J40 Pneumonia of right lower lobe due to infectious organism J18.9 Pneumonia type: due to unspecified organism Laterality: right Lung location: lower lobe of lung Time Spent (min) 17
== END 2023-08-31 09:04 | disposition home or self-care (01) ==
PROVIDERS: PCP Internal Medicine; Visit Provider Hospitalist
DX: J45.50 Severe persistent asthma, uncomplicated (principal); R91.8 Other nonspecific abnormal finding of lung field; J31.0 Chronic rhinitis; D80.1 Nonfamilial hypogammaglobulinemia; J40 Bronchitis, not specified as acute or chronic; J18.9 Pneumonia, unspecified organism
CPT/HCPCS: 99214

== ENCOUNTER → 2023-08-31 08:28 | Outpatient (BNVA) | payer MEDICARE, SELFPAY | PROVIDERS: PCP Internal Medicine; Visit Provider Hospitalist | DX: J45.50 Severe persistent asthma, uncomplicated (principal); R91.8 Other nonspecific abnormal finding of lung field; J31.0 Chronic rhinitis; J40 Bronchitis, not specified as acute or chronic; J18.9 Pneumonia, unspecified organism; D80.1 Nonfamilial hypogammaglobulinemia | CPT/HCPCS: 99212 ==

== ENCOUNTER 2024-01-06 09:24 | Outpatient (AMB) | payer MEDICARE, SELFPAY ==
[2024-01-06 09:47] VITALS: BP 124/60; PULSE 62; O2SAT 96; BMI 25.1
--- NOTE | 2024-01-06 09:47 | MHC.OFFVIS ---
Vital Signs 01/06/24 09:47 Height 5 ft 2 in Weight 137 lb BMI 25.1 BP 124/60 Blood Pressure Location Lt brachial Position Sitting Pulse 62 Pulse Source Pulse Oximeter Pulse Oximetry (%) 96 Oxygen Delivery Method Room Air Intake Visit Reasons: Pulm Nodules Direct Marketing Coordinator Required: No Allergies alendronate sodium [Fosamax] Allergy (Severe, Verified 01/06/24 09:50) Rash and Hives doxycycline Allergy (Severe, Verified 01/06/24 09:50) Numbness Lips epinephrine Allergy (Severe, Verified 01/06/24 09:50) Tachycardia morphine Allergy (Severe, Verified 01/06/24 09:50) Vomiting terazosin Allergy (Severe, Verified 01/06/24 09:50) Rash and Hives Avelox Allergy (Severe, Uncoded 01/06/24 09:50) Anaphylaxis Erythromycin Allergy (Severe, Uncoded 01/06/24 09:50) Cramping Floxin Allergy (Severe, Uncoded 01/06/24 09:50) Rash PCN Allergy (Severe, Uncoded 01/06/24 09:50) Rash HPI Comments Details: The patient is a 83 y/o woman with a history of asthma, moderate persistent. Recently she had pulmonary function studies and reviewed in. Appears that she has a mild obstruction. In addition to that her lung volumes have slightly decreased and has a mild diffusion impairment. I need to get her previous PFTs to review and compare. More recently she was exposed to sick contact, great grandchild. She did spend close time with him. After that she noticed that she started developing URI like symptoms. She did have any earache. Denies sore throat. Stat have worsening wheezing coughing. She went to her primary care doctor in order a prednisone taper in addition to Z-Silverio. She took half dose of the prednisone and did not take the zythromax. She went to see her primary care doctor she was given levofloxacin and also prednisone again. She did have a chest x-ray that was read as normal however, after I looked that she did have a left lower lobe opacity. She also had volume loss on the left side. At some point we need to repeat this x-ray. She had blood work although it we do not have all the blood work. D-dimer appear to be less than 0.5. She also had blood cultures which were no growth today. She is still using the Dulera. She felt better when she was using the Perforomist and budesonide, but, she was also using the Dulera in conjunction which is too much long-acting beta agonist. We did review her blood work her IgE level was normal and her eosinophil level were normal suggesting that she is not a candidate for biologic therapy. 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 At this point will try prophylactic antibiotics to treat her chronic bronchitis. We did talk about IgG infusions. However, we really have to weigh the risks and benefits. She did follow-up with her primary care doctor and based on her abnormal chest x-ray and her persistent symptoms in the lack of response she did have a CT scan of the chest done radiology imaging which I personally reviewed. It demonstrated multiple ground-glass the nodular densities in a bronchovascular distribution with some tree-in-bud in these were bilateral primarily in the periphery. No significant lymphadenopathy. These appear to be typical of a lower respiratory viral infection. Sometimes postviral bacterial infections can also manifest and this form. Less likely malignancy. Inflammatory conditions are also possible. The patient does have arthritis and also rash. 09/28/2022 the patient is here for pulmonary follow-up visit. Overall she is doing well from a respiratory status. She does complaint of sinus congestion and postnasal drip. Moderate severity. She has been using the nasal sprays in addition to the nasal rinsing with partial improvement of the symptoms. The patient's did get her Dulera and her asthma has been better controlled. She has not had to use her rescue medication. She does use a nebulizer at times. The patient did have a sleep study which we reviewed in the office. It was an in-lab study. It was not optimal study since she had a hard time with the vice and hard time staying asleep. However the sleep study she was awake. Still she did have mild sleep apnea during the study. No evidence of any significant hypoxia or significant tachycardia or tachyarrhythmias. The patient does sleep supine all the time. We did talk about positional therapy. She will try that 1st either with a wedge pillow or sleeping on her side and we can always either repeat the overnight oximetry or repeat home sleep study to see if that is adequate. Right now though the patient would like to hold off on CPAP therapy which I think is reasonable. The patient also had a CT scan back in the fall 2021 and she is scheduled to have a repeat CT scan in the fall of 2022 to follow-up with pulmonary nodules the patient also will start Singulair to see if this helps with her allergies. 04/04/2023 the patient is here for a pulmonary follow-up visit. She has had a hard time with breathing for the last 4 weeks. She was very ill and she could barely move she states. She did see her primary care doctor. She had a course of antibiotics and prednisone and then she was given another course but she decided not to take it because she was tired of taking medications. The patient overall feels a little better still having a cough with productive mucus yellowish in color. We did provide with a nebulized treatment in the office with hypertonic saline and levo albuterol to try to get a sputum sample but she was not able to do so. Therefore I did give her a cup in order for her to provide a sputum culture and also for Gram stain and AFB. Prior to her getting sick she did undergo a CT scan of the chest that we personally reviewed in the office. She does have waxing waning pulmonary nodules. Now she has a new nodule measuring about 6-8 mm in size in the left upper lobe area. Please appears to be subsolid in nature. It is concerning in appearance but she has had nodules that wax and wane in the past. Therefore starting of this is a smoldering infectious process versus a concerning finding. She will go ahead and treat her for postviral bacterial infection and after that she can go back on her chronic macrolide suppression therapy. Will go ahead and start budesonide nebulized therapy to try to minimize her use of prednisone and see if this provides some relief. In the meantime I did explain to her the patient is no better or if we can get a sputum sample then bronchoscopy will be helpful. 05/05/2023 the patient is here for a pulmonary follow-up visit. Overall the patient is feeling better. She did finish the Bactrim and also the prednisone. She is back to her baseline. The patient has been using her respiratory medications. We did talk about potentially bronchoscopy her symptoms were not better but at this point the patient is indeed better. His sputum culture was not able to be done however. The patient had been on azithromycin 3 times a week to treat her immunodeficiency. She does have a decrease in the IgG levels both the subclass 1 subclass 2 suggesting a specific immunodeficiency. The patient will continue on the azithromycin for the next few months until she has a repeat CT scan in August. The patient did have a new 6 mm pulmonary nodule documented on the CT scan in January 2023. Therefore will repeat the CT scan with hopes that the nodule resolves or stays stable. 08/31/2023 the patient is here for a pulmonary follow-up visit. At this time she is doing little better. Apparently she was in her usual state health until about a couple weeks ago when she went to the [facility]. There was call then she when the and she was out of her element. The patient did develop a cough also shortness breath and fatigue. She went to her primary care had a telehealth visit. Had an x-ray demonstrating a right lower lobe right middle lobe pneumonia. I did personally review the x-ray and I do agree with the airspace disease. The patient was placed on Levaquin 750 mg for 7 days. She tolerated well with any tendonitis. She was taking yogurt. She did stop the azithromycin while on it. She will go back on the azithromycin at this time. She will also need an EKG. The patient continues with respiratory therapy. Prior to getting sick she did have a CT scan of the chest which we personally reviewed. It appears that the 9 mm pulmonary nodule with halo had resolved in some of the treating budding also improved suggesting that the azithromycin has been helpful. Although no evidence of any right-sided pneumonia involving at that time. Likely she got sick right after she got the CT scan when she went to the [facility]. The patient did have a new pulmonary nodule measuring 6 mm in size. Will have to continue following serial CT scans at this time. 01/06/2024 the patient is here for a pulmonary follow-up visit. Overall she is doing well. She is responding well to the azithromycin 3 times a week. 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 The patient continues with respiratory therapy. She also continues with her CPT. Her last CT scan of the chest was back in 08/13/2023 demonstrating interval improvement of the nodular densities. Still has has other pulmonary nodules that need to be followed. Therefore, plan to request a repeat CT scan in July or the spring. The patient will continue with current respiratory therapy and antibiotic therapy at this time. If the patient develops any worsening symptoms prior to she will call for an earlier assessment [facility] Medical History (Updated 08/31/23 @ 21:52 by Mansoor Orta MD) Pneumonia Chronic rhinitis Hypogammaglobulinemia Asthma Pneumonitis Pulmonary nodules Social History (Updated 03/03/21 @ 15:29 by CLAUDIA Jacob) Patient Tobacco Use Status: Former Tobacco user Tobacco use type: Cigarette Years Smoked: 20 years Review of Systems Const Denies night sweats ENT Denies change in voice, Denies lip swelling, Denies mouth pain, Reports nasal congestion, Reports nasal discharge and Denies tongue swelling Card Denies chest pain, Denies dyspnea and Reports dyspnea on exertion Resp Denies change in phlegm color, Denies chest congestion, Reports cough, Denies hemoptysis, Denies dyspnea, Reports dyspnea on exertion and Reports wheezing GI Denies abdominal pain Musc Denies no additional complaints Neuro Denies Neuro-related abnormal movements Psych Denies no additional complaints Johny/Lymph Denies easy bleeding and Denies lymphadenopathy Aller/Immun Denies lip swelling, Denies tongue swelling and Reports wheezing Physical Exam Vital Signs: Last Vital Signs Pulse 62 01/06/24 09:47 BP 124/60 01/06/24 09:47 Pulse Ox 96 01/06/24 09:47 Oxygen Delivery Method Room Air 01/06/24 09:47 BMI result Body Mass Index 25.1 Const General: alert Eyes Pupils: Equal, round and reactive pupils present Neck Neck: Yes normal visual inspection, Yes full ROM and Yes no lymphadenopathy Chest Chest palpation & inspection: normal inspection of the chest Resp Effort & Inspection: prolonged expiratory phase Auscultation: no rales, no rhonchi, no wheezes and diminished lung sounds Cardio Rate: regular rate Rhythm: regular rhythm Heart sounds: S1 normal heart sound present and S2 normal heart sound present GI Palpation (GI): Soft to palpation and nontender Auscultation: normal bowel sounds Skin General skin exam: rashes and/or lesions noted Neuro Cranial nerves: Yes Equal, round and reactive pupils present Results Reviewed Results Reviewed: [address] [address] [address] Scan Report Signed Patient: Zena Urban MR#: [id number] : 1940 Acct:[id number] Age/Sex: 83 / F ADM Date: 08/16/23 Loc: HO.CT Attending Dr: Mansoor Orta MD Ordering Physician: Mansoor Orta MD Date of Service: 08/16/23 Procedure(s): CT chest wo IV con Accession Number(s): [id number] cc: LEIO TAVERAS MD; Mansoor Orta MD~ EXAMINATION: CT CHEST WITHOUT CONTRAST CLINICAL INFORMATION: Other nonspecific abnormal finding of lung field. COMPARISON: CT chest 02/21/2023: Waxing and waning appearance of clustered peribronchial nodules/likely airways disease throughout both lungs. There is a new 4 x 6 mm solid left upper lobe nodule with surrounding ground-glass attenuation, including surrounding groundglass attenuation measuring up to 1.[address] follow-up of this finding recommended recommended. TECHNIQUE: Multidetector volumetric CT imaging of the chest was done. Axial MIP volume rendering provided. Sagittal and coronal reformatted images were obtained. This CT examination was performed using dose optimization techniques as appropriate, variously including the following: *Automated exposure control *Adjustment of mA and/or kV according to patient size (this includes techniques or standardized protocols for targeted exams where dose is matched to indication/reason for exam; i.e. extremities or head) *Use of iterative reconstruction technique DLP: 95 mGy-cm. FINDINGS: LUNGS: Biapical pleural-parenchymal scarring is present, right greater than left. The previously seen new 9 mm nodule in the left upper lobe, with surrounding ground-glass opacity, has completely resolved with no residua. Previously seen increase in tree-in-bud opacities in the right upper lobe posteriorly have also improved (7:112, compare prior 5:138). Otherwise, appearances are essentially without significant change with scattered small pulmonary micronodules, some better, some new, but none appear suspicious for malignancy and all are under 3 mm in size. MEDIASTINUM: The mediastinum is normal. CORONARY ARTERY CALCIFICATION: None visualized on this study. PLEURA: There is no pleural effusion. No pleural mass or thickening. AXILLA: No lymphadenopathy. UPPER ABDOMEN: Unremarkable. Benign hepatic cysts are again seen. OSSEOUS STRUCTURES: Unremarkable. CT/CT chest wo IV con IMPRESSION: 1. The previously seen new 9 mm solid nodule with surrounding ground-glass halo in the left upper lobe, has completely resolved with no residua. 2. Previously seen increase in tree-in-bud opacities in the right upper lobe posteriorly have also improved. 3. Otherwise, appearances are essentially without significant change, with scattered small pulmonary micronodules, some better, some new, but none appear suspicious for malignancy and all are under 3 mm in size. Fleischner guidelines were followed. Dictated By: Alfred King MD Signed By: <Electronically signed by Alfred King MD in OV> 08/24/23 2145 DD/ 0821 TD/TT: [employer]: SS Assessment & Plan Assessment & Plan (1) Asthma: Code(s): J45.909 - Unspecified asthma, uncomplicated Category: Medical Qualifiers: Asthma complication type: uncomplicated Asthma persistence: persistent Asthma severity: severe Qualified Code(s): J45.50 - Severe persistent asthma, uncomplicated (2) Pulmonary nodules: Code(s): R91.8 - Other nonspecific abnormal finding of lung field Category: Medical (3) Chronic rhinitis: Code(s): J31.0 - Chronic rhinitis Category: Medical (4) Hypogammaglobulinemia: Code(s): 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 Category: Medical (5) Bronchitis: Code(s): J40 - Bronchitis, not specified as acute or chronic Category: Medical (6) Pneumonia: Code(s): J18.9 - Pneumonia, unspecified organism Category: Medical Qualifiers: Laterality: right Lung location: lower lobe of lung Pneumonia type: due to unspecified organism Qualified Code(s): J18.9 - Pneumonia, unspecified organism Plan Azithromycin MWF, serial EKG continue Dulera short-acting beta agonist as needed continue Singulair Continue nasal therapy with Neti bottle and also fluticasone and Astelin nasal spray CPT with Acapella valve daily CT chest F/U Spring 2024 F/U 4 months Orders: Orders CT chest wo IV con 07/17/24 R91.8 - Other nonspecific abnormal finding of lung field Coding Level of Care Code Est Pt Level 4 (82917) Complex EM visit Add On G2211 Diagnoses Severe persistent asthma without complication J45.50 Asthma complication type: uncomplicated Asthma persistence: persistent Asthma severity: severe Pulmonary nodules R91.8 Chronic rhinitis J31.0 Hypogammaglobulinemia D80.1 Bronchitis J40 Pneumonia of right lower lobe due to infectious organism J18.9 Laterality: right Lung location: lower lobe of lung Pneumonia type: due to unspecified organism Time Spent (min) 17
== END 2024-01-06 10:03 | disposition home or self-care (01) ==
PROVIDERS: PCP Internal Medicine; Visit Provider Hospitalist
DX: J45.50 Severe persistent asthma, uncomplicated (principal); R91.8 Other nonspecific abnormal finding of lung field; J31.0 Chronic rhinitis; D80.1 Nonfamilial hypogammaglobulinemia; J40 Bronchitis, not specified as acute or chronic; J18.9 Pneumonia, unspecified organism
CPT/HCPCS: 99214; G2211

== ENCOUNTER → 2024-01-06 09:24 | Outpatient (BNVA) | payer MEDICARE, SELFPAY | PROVIDERS: PCP Internal Medicine; Visit Provider Hospitalist | DX: J45.50 Severe persistent asthma, uncomplicated (principal); J40 Bronchitis, not specified as acute or chronic; J18.9 Pneumonia, unspecified organism; J31.0 Chronic rhinitis; R91.8 Other nonspecific abnormal finding of lung field; D80.1 Nonfamilial hypogammaglobulinemia | CPT/HCPCS: 99212 ==

== ENCOUNTER 2024-07-17 08:52 | Outpatient (REF) | payer MEDICARE, SELFPAY ==
--- NOTE | ~2024-07-17 | CT_ITS ---
CLINICAL HISTORY: R91.8 - Other nonspecific abnormal finding of lung field CT chest without contrast Comparison: CT/REG/OR/SR - CT CHEST WO IV CON - 08/16/23 07:58 EDT Findings: The thyroid gland appears normal. There is no mediastinal, hilar, axillary lymphadenopathy. Heart is normal in size. There is a trace pericardial effusion. Focal cluster of micronodules is seen in the right lower lobe with nodules measuring up to 3 mm (axial images 35-37 of series 3), new since prior exam. Focal cluster of micronodules is also seen in the right middle lobe (axial images 37-38), similar to prior exam. Several small 2-3 mm right lower lobe nodules (axial images 27 and 29) and left lower lobe nodules (axial images 39, 27) are similar to prior exam. Mild biapical lung scarring is seen. Limited examination of the upper abdomen demonstrates a 6.0 x 4.2 cm hypodense left hepatic mass. Several hepatic cysts are also seen measuring up to 3.0 cm. Mild degenerative changes are seen in the spine. No acute osseous abnormality is identified. No aggressive lytic or blastic lesion is seen. IMPRESSION: 1. Focal clusters of micronodules in the right lower lobe and right middle lobe, new in the right lower lobe since prior exam and most consistent with an infectious/inflammatory process. 2. 6.0 x 4.2 cm hypodense left hepatic mass. Recommend CT or MRI liver mass protocol for further evaluation. This document has been electronically signed by: Chauncey Ryan on 07/18/2024 09:43:44
--- OUTSIDE RECORDS SUMMARY | 2024-07-17 09:35 | XMS_ITS | Clinical Summary ---
Author Organization [facility], Address [address] [place] [address] [place] [address] Phone Care Team Providers Care Poultry Hatchery Laborer Name Role Phone Calin Pearson MD Primary Care Provider [phone] Allergies Active Allergy Reactions Criticality Noted Date Comments Alendronate 03/22/2022 Doxycycline 03/22/2022 Erythromycin 03/22/2022 Other reaction(s): cramps, vomiting Lidocaine-Epinephrine (Pf) 2 Other reaction(s): accellerated heartbeat Ofloxacin 03/22/2022 Penicillins Rash Low 03/22/2022 Other reaction(s): swelling Terazosin 03/22/2022 Medications ibandronate (BONIVA) 150 MG tablet TAKE 1 TABLET ONCE MONTHLY 60 MINUTES BEFORE FIRST FOOD, BEVERAGE, OR MEDICINE OF THE DAY (W/ WATER) 2 Active losartan (COZAAR) 25 MG tablet Take 25 mg by mouth 1 (one) time each day 2 Active losartan (COZAAR) 50 MG tablet Take 50 mg by mouth 1 (one) time each day 2 Active Dulera 200-5 MCG/ACT inhaler INHALE 2 PUFFS EVERY 12 HOURS 2 Active ofloxacin (OCUFLOX) 0.3 % ophthalmic solution INSTILL 1 DROP INTO LEFT EYE 4 TIMES A DAY 2 Active amLODIPine (NORVASC) 5 MG tablet Take 5 mg by mouth 1 (one) time each day 2 Active furosemide (LASIX) 20 MG tablet Take 20 mg by mouth 1 (one) time each day 2 Active Symbicort 160-4.5 MCG/ACT inhaler INHALE 2 PUFFS 2 TIMES A DAY FOR 30 DAYS 2 Active Azelastine HCl 137 MCG/SPRAY solution USE 2 SPRAYS INTRANASALLY 2 TIMES A DAY 3 Active BinaxNOW COVID-19 Ag Home Test kit TEST DIRECTED TODAY 2 Active erythromycin (ROMYCIN) ophthalmic ointment APPLY TO THE LEFT LOWER LIDS THREE TIMES A DAY 2 Active triamcinolone (KENALOG) 0.1 % cream APPLY TO ARMS, HANDS, LEGS TWICE A DAY NEEDED FOR FLARES 3 Active montelukast (SINGULAIR) 10 MG tablet Take 10 mg by mouth at bed time 3 Active rosuvastatin (CRESTOR) 40 MG tablet 3 Active rosuvastatin (CRESTOR) 20 MG tablet Take 20 mg by mouth every night 3 Active tobramycin-dexa methasone (TOBRADEX) ophthalmic solution INSTILL 1 DROP INTO RIGHT EYE 4 TIMES A DAY FOR 7 DAYS 3 Active Active Problems Problem Noted Date Diagnosed Date Hypokalemia 03/23/2022 Hypertension 03/22/2022 Social History Tobacco Use Types Packs/Day Years Used Date Smoking Tobacco: Never Assessed Comments Unknown Sex and Gender Information Value Date Recorded Sex Assigned at Not on file Legal Sex Female 3:15 PM EDT Gender Identity Not on file Sexual Orientation Not on file Last Filed Vital Signs Vital Sign Reading Time Taken Comments Blood Pressure 118/80 12/07/2023 2:59 PM EDT Pulse - - Temperature - - Respiratory Rate - - Oxygen Saturation - - Inhaled Oxygen Concentration - - Weight 61.2 kg (135 lb) 12/07/2023 2:59 PM EDT Height - - Body Mass Index - - Plan of Treatment Health Maintenance Due Date Last Done Comments Pneumococcal Vaccine: 65+ Ye ars (1 of 2 - PCV) 1946 Diabetes: Hemoglobin A1C 12/07/2023 Diabetes: Ophthalmology Exam 12/07/2023 Diabetes: Pedal Pulse Checked 12/07/2023 Diabetes: Sensory Foot Exam 12/07/2023 Diabetes: Visual Foot Exam 12/07/2023 Influenza Vaccine (#1) 2023 Hepatitis B Vaccine Aged Out No longe r eligible based on patient's age to complete this topic Insurance MEDICARE [facility] Care Teams Poultry Hatchery Laborer Relationship Specialty Start Date End Date Calin Pearson MD [address] PCP - General Internal Medicine 01/20/22
--- OUTSIDE RECORDS SUMMARY | 2024-07-17 09:35 | XMS_ITS | Encounter Summary ---
Author Organization [facility], Address [address] [address] Phone Care Team Providers Care American History Teacher Name Role Phone Calin Pearson MD Primary Care Provider [phone] Encounter Details Date Type Department Care Team (Late st Contact Info) Description 03/25/2022 Documentation Only [facility], [address] [address] Nando Arizmendi MD [address] [place] [phone] Social History Tobacco Use Types Packs/Day Years Used Date Smoking Tobacco: Never Assessed Comments Unknown Sex and Gender Information Value Date Recorded Sex Assigned at Not on file Legal Sex Female 3:15 PM EDT Gender Identity Not on file Sexual Orientation Not on file documented as of this encounter Plan of Treatment Not on file documented as of this encounter Visit Diagnoses Not on filedocumented in this encounter Care Teams American History Teacher Relationship Specialty Start Date End Date Calin Pearson MD [address] PCP - General Internal Medicine 01/20/22 documented as of this encounter
--- OUTSIDE RECORDS SUMMARY | 2024-07-17 09:35 | XMS_ITS | Encounter Summary ---
Author Organization [facility] [place], Address [address] [address] Phone Care Team Providers Care Specialist Physicians Name Role Phone Calin Pearson MD Primary Care Provider [phone] Encounter Details Date Type Department Care Team (Late st Contact Info) Description 03/25/2022 Documentation Only [facility] [place], [address] [place] [address] Nando Arizmendi MD [address] [place] [phone] Social History Tobacco Use Types Packs/Day Years [...] on filedocumented in this encounter Care Teams Specialist Physicians Relationship Specialty Start Date End Date Calin Pearson MD [address] PCP - General Internal Medicine 01/20/22 documented as of this encounter
--- OUTSIDE RECORDS SUMMARY | 2024-07-17 09:35 | XMS_ITS | Encounter Summary ---
Author Organization [facility] [place], Address [address] [place] [address] Phone Care Team Providers Care Cut And Cover Line Worker Name Role Phone Calin Pearson MD Primary Care Provider [phone] Encounter Details Date Type Department Care Team (Late st Contact Info) Description 01/20/2022 Documentation Only [facility], [address] [place] [address] Calin Pearson MD [place] [employer] [address] Social History Tobacco Use Types Packs/Day Years [...] on filedocumented in this encounter Care Teams Cut And Cover Line Worker Relationship Specialty Start Date End Date Calin Pearson MD [place] [employer] [address] [place] [address] PCP - General Internal Medicine 01/20/22 documented as of this encounter
== END 2024-07-17 08:53 | disposition home or self-care (01) ==
LOC: HO.CT 08:52
PROVIDERS: PCP Internal Medicine; Visit Provider Hospitalist
DX: R91.8 Other nonspecific abnormal finding of lung field (principal)
CPT/HCPCS: 71250

== ENCOUNTER → 2024-07-17 08:54 | Outpatient (BNV) | payer MEDICARE, SELFPAY | PROVIDERS: PCP Internal Medicine; Visit Provider Radiology Vascular & Interventional Radiology | DX: R91.8 Other nonspecific abnormal finding of lung field (principal); R93.2 Abnormal findings on diagnostic imaging of liver and biliary tract | CPT/HCPCS: 71250 ==

== ENCOUNTER 2024-07-30 09:22 | Outpatient (AMB) | payer MEDICARE, SELFPAY ==
[2024-07-30 09:26] VITALS: BP 120/68; PULSE 77; O2SAT 95; BMI 26.6
--- NOTE | 2024-07-30 09:26 | MHC.OFFVIS ---
Vital Signs 07/30/24 09:26 Height 5 ft 2 in Weight 145 lb 8.081 oz BMI 26.6 BP 120/68 Blood Pressure Location Rt brachial Position Sitting Pulse 77 Pulse Source Pulse Oximeter Pulse Oximetry (%) 95 Oxygen Delivery Method Room Air Intake Visit Reasons: Pulm Nodules Allergies alendronate sodium [Fosamax] Allergy (Severe, Verified 07/30/24 09:28) Rash and Hives doxycycline Allergy (Severe, Verified 07/30/24 09:28) Numbness Lips epinephrine Allergy (Severe, Verified 07/30/24 09:28) Tachycardia morphine Allergy (Severe, Verified 07/30/24 09:28) Vomiting terazosin Allergy (Severe, Verified 07/30/24 09:28) Rash and Hives Avelox Allergy (Severe, Uncoded 07/30/24:28) Anaphylaxis Erythromycin Allergy (Severe, Uncoded 07/30/24 09:28) Cramping Floxin Allergy (Severe, Uncoded 07/30/24 09:28) Rash PCN Allergy (Severe, Uncoded 07/30/24 09:28) Rash HPI Comments Details: The patient is a 84 y/o woman with a history of asthma, moderate persistent. Recently she had pulmonary function studies and reviewed in. Appears that she has a mild obstruction. In addition to that her lung volumes have slightly decreased and has a mild diffusion impairment. I need to get her previous PFTs to review and compare. More recently she was exposed to sick contact, great grandchild. She did spend close time with him. After that she noticed that she started developing URI like symptoms. She did have any earache. Denies sore throat. Stat have worsening wheezing coughing. She went to her primary care doctor in order a prednisone taper in addition to Z-Silverio. She took half dose of the prednisone and did not take the zythromax. She went to see her primary care doctor she was given levofloxacin and also prednisone again. She did have a chest x-ray that was read as normal however, after I looked that she did have a left lower lobe opacity. She also had volume loss on the left side. At some point we need to repeat this x-ray. She had blood work although it we do not have all the blood work. D-dimer appear to be less than 0.5. She also had blood cultures which were no growth today. She is still using the Dulera. She felt better when she was using the Perforomist and budesonide, but, she was also using the Dulera in conjunction which is too much long-acting beta agonist. We did review her blood work her IgE level was normal and her eosinophil level were normal suggesting that she is not a candidate for biologic therapy. 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 At this point will try prophylactic antibiotics to treat her chronic bronchitis. We did talk about IgG infusions. However, we really have to weigh the risks and benefits. She did follow-up with her primary care doctor and based on her abnormal chest x-ray and her persistent symptoms in the lack of response she did have a CT scan of the chest done radiology imaging which I personally reviewed. It demonstrated multiple ground-glass the nodular densities in a bronchovascular distribution with some tree-in-bud in these were bilateral primarily in the periphery. No significant lymphadenopathy. These appear to be typical of a lower respiratory viral infection. Sometimes postviral bacterial infections can also manifest and this form. Less likely malignancy. Inflammatory conditions are also possible. The patient does have arthritis and also rash. 09/28/2022 the patient is here for pulmonary follow-up visit. Overall she is doing well from a respiratory status. She does complaint of sinus congestion and postnasal drip. Moderate severity. She has been using the nasal sprays in addition to the nasal rinsing with partial improvement of the symptoms. The patient's did get her Dulera and her asthma has been better controlled. She has not had to use her rescue medication. She does use a nebulizer at times. The patient did have a sleep study which we reviewed in the office. It was an in-lab study. It was not optimal study since she had a hard time with the vice and hard time staying asleep. However the sleep study she was awake. Still she did have mild sleep apnea during the study. No evidence of any significant hypoxia or significant tachycardia or tachyarrhythmias. The patient does sleep supine all the time. We did talk about positional therapy. She will try that 1st either with a wedge pillow or sleeping on her side and we can always either repeat the overnight oximetry or repeat home sleep study to see if that is adequate. Right now though the patient would like to hold off on CPAP therapy which I think is reasonable. The patient also had a CT scan back in the fall 2021 and she is scheduled to have a repeat CT scan in the fall of 2022 to follow-up with pulmonary nodules the patient also will start Singulair to see if this helps with her allergies. 04/04/2023 the patient is here for a pulmonary follow-up visit. She has had a hard time with breathing for the last 4 weeks. She was very ill and she could barely move she states. She did see her primary care doctor. She had a course of antibiotics and prednisone and then she was given another course but she decided not to take it because she was tired of taking medications. The patient overall feels a little better still having a cough with productive mucus yellowish in color. We did provide with a nebulized treatment in the office with hypertonic saline and levo albuterol to try to get a sputum sample but she was not able to do so. Therefore I did give her a cup in order for her to provide a sputum culture and also for Gram stain and AFB. Prior to her getting sick she did undergo a CT scan of the chest that we personally reviewed in the office. She does have waxing waning pulmonary nodules. Now she has a new nodule measuring about 6-8 mm in size in the left upper lobe area. Please appears to be subsolid in nature. It is concerning in appearance but she has had nodules that wax and wane in the past. Therefore starting of this is a smoldering infectious process versus a concerning finding. She will go ahead and treat her for postviral bacterial infection and after that she can go back on her chronic macrolide suppression therapy. Will go ahead and start budesonide nebulized therapy to try to minimize her use of prednisone and see if this provides some relief. In the meantime I did explain to her the patient is no better or if we can get a sputum sample then bronchoscopy will be helpful. 05/05/2023 the patient is here for a pulmonary follow-up visit. Overall the patient is feeling better. She did finish the Bactrim and also the prednisone. She is back to her baseline. The patient has been using her respiratory medications. We did talk about potentially bronchoscopy her symptoms were not better but at this point the patient is indeed better. His sputum culture was not able to be done however. The patient had been on azithromycin 3 times a week to treat her immunodeficiency. She does have a decrease in the IgG levels both the subclass 1 subclass 2 suggesting a specific immunodeficiency. The patient will continue on the azithromycin for the next few months until she has a repeat CT scan in August. The patient did have a new 6 mm pulmonary nodule documented on the CT scan in January 2023. Therefore will repeat the CT scan with hopes that the nodule resolves or stays stable. 08/31/2023 the patient is here for a pulmonary follow-up visit. At this time she is doing little better. Apparently she was in her usual state health until about a couple weeks ago when she went to the [facility]. There was call then she when the and she was out of her element. The patient did develop a cough also shortness breath and fatigue. She went to her primary care had a telehealth visit. Had an x-ray demonstrating a right lower lobe right middle lobe pneumonia. I did personally review the x-ray and I do agree with the airspace disease. The patient was placed on Levaquin 750 mg for 7 days. She tolerated well with any tendonitis. She was taking yogurt. She did stop the azithromycin while on it. She will go back on the azithromycin at this time. She will also need an EKG. The patient continues with respiratory therapy. Prior to getting sick she did have a CT scan of the chest which we personally reviewed. It appears that the 9 mm pulmonary nodule with halo had resolved in some of the treating budding also improved suggesting that the azithromycin has been helpful. Although no evidence of any right-sided pneumonia involving at that time. Likely she got sick right after she got the CT scan when she went to the [facility]. The patient did have a new pulmonary nodule measuring 6 mm in size. Will have to continue following serial CT scans at this time. 01/06/2024 the patient is here for a pulmonary follow-up visit. Overall she is doing well. She is responding well to the azithromycin 3 times a week. 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 The patient continues with respiratory therapy. She also continues with her CPT. Her last CT scan of the chest was back in 08/13/2023 demonstrating interval improvement of the nodular densities. Still has has other pulmonary nodules that need to be followed. Therefore, plan to request a repeat CT scan in July or the spring. The patient will continue with current respiratory therapy and antibiotic therapy at this time. If the patient develops any worsening symptoms prior to she will call for an earlier assessment 07/30/2024 the patient is here for a pulmonary follow-up visit. Overall she is doing okay. She did have bout of sinusitis I was pretty significant. She did follow-up with her primary care who ordered a couple courses of prednisone and also Levaquin. Finally the Levaquin did help her. She continues use her nasal sprays to help her with her significant nasal congestion. She still has a lot of erythema and nasal turbinate hypertrophy that is obstructing her flow and also has significant erythema on the posterior pharynx from postnasal drip. From a respiratory status she is doing okay. Her inhalers are working well. She did have a recent CT scan of the chest that had been concerning for finding of the liver. Appear to have like a masslike density in the liver that was documented on the recent CT scan. I did personally review the CAT scan at did appreciate the abnormality. I did look back in previous CAT scans where was not mention however I could appreciate the beginning of something. She is scheduled to have an MRI in the coming days. She will continue her current respiratory therapy. The patient will continue using her Neti bottle and will add budesonide to it to try to help her with her significant chronic sinusitis and see if this could further improve the sinus congestion. She can do the Neti bottle with budesonide for 4-6 weeks in the go back to the fluticasone at that time. Patient follow-up in 6 months. She has any worsening symptoms she will let me know. She will continue with the azithromycin for now Tuesday for her chronic bronchitis and bronchiectatic changes. She did have some mucus plugging noted on her CT scans so she needs to continue with chest physical therapy and Acapella valve. [facility] Medical History (Updated 07/30/24 @ 21:31 by Mansoor Orta MD) Pancreatic mass Pneumonia Chronic rhinitis Hypogammaglobulinemia Asthma Pneumonitis Pulmonary nodules Social History Patient Tobacco Use Status: Former Tobacco user Tobacco use type: Cigarette Years Smoked: 20 years Review of Systems Const Denies night sweats ENT Denies change in voice, Denies lip swelling, Denies mouth pain, Reports nasal congestion, Reports nasal discharge, Reports sinus pain, Reports sinus pressure and Denies tongue swelling Card Denies chest pain, Denies dyspnea and Reports dyspnea on exertion Resp Denies change in phlegm color, Denies chest congestion, Reports cough, Denies hemoptysis, Denies dyspnea, Reports dyspnea on exertion and Reports wheezing GI Denies abdominal pain Musc Denies no additional complaints Neuro Denies Neuro-related abnormal movements Psych Denies no additional complaints Johny/Lymph Denies easy bleeding and Denies lymphadenopathy Aller/Immun Denies lip swelling, Denies tongue swelling and Reports wheezing Physical Exam Vital Signs: Last Vital Signs Pulse 77 07/30/24 09:26 BP 120/68 07/30/24 09:26 Pulse Ox 95 07/30/24 09:26 Oxygen Delivery Method Room Air 07/30/24 09:26 BMI result Body Mass Index 26.6 Const General: alert Eyes Pupils: Equal, round and reactive pupils present Neck Neck: Yes normal visual inspection, Yes full ROM and Yes no lymphadenopathy Chest Chest palpation & inspection: normal inspection of the chest Resp Auscultation: no rales, no rhonchi, no wheezes and diminished lung sounds Cardio Rate: regular rate Rhythm: regular rhythm Heart sounds: S1 normal heart sound present and S2 normal heart sound present GI Palpation (GI): Soft to palpation and nontender Auscultation: normal bowel sounds Skin General skin exam: rashes and/or lesions noted Neuro Cranial nerves: Yes Equal, round and reactive pupils present Assessment & Plan Assessment & Plan (1) Asthma: Code(s): J45.909 - Unspecified asthma, uncomplicated Category: Medical Qualifiers: Asthma complication type: uncomplicated Asthma persistence: persistent Asthma severity: severe Qualified Code(s): J45.50 - Severe persistent asthma, uncomplicated (2) Pulmonary nodules: Code(s): R91.8 - Other nonspecific abnormal finding of lung field Category: Medical (3) Chronic rhinitis: Code(s): J31.0 - Chronic rhinitis Category: Medical (4) Hypogammaglobulinemia: Code(s): 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 Category: Medical (5) Bronchitis: Code(s): J40 - Bronchitis, not specified as acute or chronic Category: Medical (6) Pancreatic mass: Code(s): K86.89 - Other specified diseases of pancreas Category: Medical Plan Azithromycin MWF, serial EKG continue Dulera short-acting beta agonist as needed continue Singulair Continue nasal therapy with Neti bottle and also fluticasone and Astelin nasal spray CPT with Acapella valve daily MRI liver soon F/U 4 months Medications: Refilled albuterol sulfate 90 mcg/actuation 2 puffs PO Q6H PRN 8.5 grams 11RF shortness of breath or wheezing Coding Level of Care Code Est Pt Level 4 (50675) Complex EM visit Add On G2211 Diagnoses Severe persistent asthma without complication J45.50 Asthma complication type: uncomplicated Asthma persistence: persistent Asthma severity: severe Pulmonary nodules R91.8 Chronic rhinitis J31.0 Hypogammaglobulinemia D80.1 Bronchitis J40 Pancreatic mass K86.89 Time Spent (min) 17
--- OUTSIDE RECORDS SUMMARY | 2024-07-30 10:31 | XMS_ITS | Encounter Summary ---
Author Organization [facility], Address [address] [address] Phone Care Team Providers Care Weed Control Inspector Name Role Phone Calin Pearson MD Primary Care Provider [phone] Encounter Details Date Type Department Care Team (Late st Contact Info) Description 03/25/2022 Documentation Only [facility], [address] [address] Nando Arizmendi MD [address] [place] [phone] Social History Tobacco Use Types Packs/Day Years [...] on filedocumented in this encounter Care Teams Weed Control Inspector Relationship Specialty Start Date End Date Calin Pearson MD [address] PCP - General Internal Medicine 01/20/22 documented as of this encounter
--- OUTSIDE RECORDS SUMMARY | 2024-07-30 10:31 | XMS_ITS | Clinical Summary ---
Author Organization [facility], Address [address] [place] [address] [place] [address] Phone Care Team Providers Care Information Security Specialist Name Role Phone Calin Pearson MD Primary Care Provider [phone] Allergies Active Allergy Reactions Criticality Noted Date [...] Diabetes: Visual Foot Exam 12/07/2023 Influenza Vaccine (Season Ended) 2024 Hepatitis B Vaccine Aged Out No longe r eligible based on patient's age to complete this topic Insurance MEDICARE [facility] Care Teams Information Security Specialist Relationship Specialty Start Date End Date Calin Pearson MD [address] PCP - General Internal Medicine 01/20/22
--- OUTSIDE RECORDS SUMMARY | 2024-07-30 10:31 | XMS_ITS ---
Author Name [facility] Organization Unknown History of Medication Use Medication Directions Dispensed Refills Start Date End Date Stat us montelukastTake (ora l)No date recordedtabletNo frequency recordedoralNo set duration recordedNo set duration amount vltkyagvncpveeefu20qu suspen ded amLODIPineTake (oral )No date recordedtabletNo frequency recordedoralNo set duration recordedNo set duration amount yjizkzreoukpkn7yd active Flonase SensimistTak Rachel date recordedNo form recordedNo frequency recordedNo route recordedNo set duration recordedNo set duration amount recordedactiveNo dosage strength recordedNo dosage strength units of measure recorded active A66OksuUl date recor dedNo form recordedNo frequency recordedNo route recordedNo set duration recordedNo set duration amount recordedactiveNo dosage strength recordedNo dosage strength units of measure recorded active GaviLyte-GTake (oral )No date recordedSolution, Reconstituted, OralNo frequency recordedoralNo set duration recordedNo set duration amount cvhrayawyfvdwpjgq518-79.74 -6.74-5.86 gram suspended ketoconazoleTake (topical)No date recordedshampooNo frequency recordedtopicalNo set duration recordedNo set duration amount recordedactive2% active D3-5000TakeNo date recordedNo form recordedNo frequency recordedNo route recordedNo set duration recordedNo set duration amount recordedactiveNo dosage strength recordedNo dosage strength units of measure recorded active Calcium 500TakeNo da te recordedNo form recordedNo frequency recordedNo route recordedNo set duration recordedNo set duration amount recordedactiveNo dosage strength recordedNo dosage strength units of measure recorded active Bactrim DSTakeNo sid e recordedNo form recordedNo frequency recordedNo route recordedNo set duration recordedNo set duration amount recordedsuspendedNo dosage strength recordedNo dosage strength units of measure recorded suspended azelastineTakeNo sid e recordedNo form recordedNo frequency recordedNo route recordedNo set duration recordedNo set duration amount recordedactiveNo dosage strength recordedNo dosage strength units of measure recorded active Allergies Allergen Reaction Severity Comment Documented Date Source Statu s HYTRIN Not Indicated [facility] FLOXIN Not Indicated [facility] DOXYCYCLINE Numbness [facility] EPINEPHRINE Not Indicated [facility] FOSAMAX Cramping pain (finding) [facility] AVELOX Not Indicated [facility] AZITHROMYCIN Cramping pain (finding) [facility] Problems Problem Status Onset Date Problem Type Date of Resoluti on Source Eczema, allergic active ProblemAct [facility] Other specified abnormal findings of blood chemistry active ProblemAct [facility] Osteoporosis active ProblemAct [facility] Hypertension active ProblemAct [facility] Other asthma active ProblemAct [facility] Pneumonia, unspecified organism active 2023-08-22 ProblemAct [facility] Encounters Encounter Type Encounter Reason Primary Diagnosis Location Date Ambulatory [facility] 08/22/2023 Care Team Organization Name Specialty Phone Email Start Date End Da te [facility] 08/23/2023 [facility] 08/22/2023
--- OUTSIDE RECORDS SUMMARY | 2024-07-30 10:31 | XMS_ITS | Encounter Summary ---
Author Organization [facility], Address [address] [place] [address] Phone Care Team Providers Care Histotechnologist Supervisor Name Role Phone Calin Pearson MD Primary Care Provider [phone] Encounter Details Date Type Department Care Team (Late st Contact Info) Description 01/20/2022 Documentation Only [facility], [address] [place] [address] Calin Pearson MD [place] [employer] [address] Social History Tobacco Use Types Packs/Day [...] on filedocumented in this encounter Care Teams Histotechnologist Supervisor Relationship Specialty Start Date End Date Calin Pearson MD [place] [employer] [address] [place] [address] PCP - General Internal Medicine 01/20/22 documented as of this encounter
--- OUTSIDE RECORDS SUMMARY | 2024-07-30 10:31 | XMS_ITS | Encounter Summary ---
Author Organization [facility], Address [address] [address] Phone Care Team Providers Care Communications Representative Name Role Phone Calin Pearson MD Primary Care Provider [phone] Encounter Details Date Type Department Care Team (Late st Contact Info) Description 03/25/2022 Documentation Only [facility], [address] [place] [address] Nando Arizmendi MD [address] [place] [phone] Social History Tobacco Use Types Packs/Day Years [...] on filedocumented in this encounter Care Teams Communications Representative Relationship Specialty Start Date End Date Calin Pearson MD [address] PCP - General Internal Medicine 01/20/22 documented as of this encounter
== END 2024-07-30 09:47 | disposition home or self-care (01) ==
LOC: HO.HPS 09:23
PROVIDERS: PCP Internal Medicine; Visit Provider Hospitalist
DX: J45.50 Severe persistent asthma, uncomplicated (principal); R91.8 Other nonspecific abnormal finding of lung field; J31.0 Chronic rhinitis; D80.1 Nonfamilial hypogammaglobulinemia; J40 Bronchitis, not specified as acute or chronic; K86.89 Other specified diseases of pancreas
CPT/HCPCS: 99214; G2211

== ENCOUNTER → 2024-07-30 09:22 | Outpatient (BNVA) | payer MEDICARE, SELFPAY | PROVIDERS: PCP Internal Medicine; Visit Provider Hospitalist | DX: J40 Bronchitis, not specified as acute or chronic (principal); J45.50 Severe persistent asthma, uncomplicated; R91.8 Other nonspecific abnormal finding of lung field; J31.0 Chronic rhinitis; D80.1 Nonfamilial hypogammaglobulinemia; K86.89 Other specified diseases of pancreas; Z87.891 Personal history of nicotine dependence | CPT/HCPCS: 99212 ==

== ENCOUNTER 2025-01-29 09:18 | Outpatient (AMB) | payer MEDICARE, SELFPAY ==
--- OUTSIDE RECORDS SUMMARY | 2024-12-25 04:22 | XMS_ITS ---
Author Organization [facility] Address [address] [place], [place] [id number] Care Team Providers Care Check Examiner Name Role Phone ELIO TAVERAS Primary Care Provider [phone] REASON FOR VISIT swollen ankles Encounters Encounter Location Date Provider Diagnosis [address] [address] 12/25/2024 ELIO TAVERAS PLAN OF TREATMENT Next Appt Details Provider Name:NURSING DANIEL Altamirano, 02/18/2025 10:15:00 AM, [address] [place] [address], [phone], Provider Name:ELIO TAVERAS, 0 11/29/2025 09:00:00 AM, [address] [place] [address], [phone],
--- OUTSIDE RECORDS SUMMARY | 2024-12-27 11:36 | XMS_ITS ---
Author Organization [facility] Address [address], [place] [id number] Care Team Providers Care Rfid Specialist Name Role Phone ELIO TAVERAS Primary Care Provider REASON FOR VISIT Dr. Ferrer Update Encounters Encounter Location Date Provider Diagnosis [address] [phone] 12/27/2024 ELIO TAVERAS PLAN OF TREATMENT Next Appt Details Provider Name:NURSING DANIEL Altamirano, 02/18/2025 10:15:00 AM, [address] [place] [address], [phone], Provider Name:ELIO TAVERAS, 0 11/29/2025 09:00:00 AM, [address] [place] [address], [phone],
--- OUTSIDE RECORDS SUMMARY | 2025-01-02 07:05 | XMS_ITS ---
Author Organization [facility] Address [address] [place], [place] [phone] Care Team Providers Care Manager Case Name Role Phone ELIO TAVERAS Primary Care Provider REASON FOR VISIT CM. HFU Encounters Encounter Location Date Provider Diagnosis [address] [phone] 01/02/2025 ELIO TAVERAS PLAN OF TREATMENT Next Appt Details Provider Name:NURSING DANIEL Altamirano, 02/18/2025 10:15:00 AM, [address] [place] [address], [phone], Provider Name:ELIO TAVERAS, 0 11/29/2025 09:00:00 AM, [address] [place] [place] [address], [phone],
--- OUTSIDE RECORDS SUMMARY | 2025-01-18 06:15 | XMS_ITS ---
Author Organization [facility] Address [address] [place], [place] [phone] Care Team Providers Care Short Story Writer Name Role Phone ELIO TAVERAS Primary Care Provider [facility]EVE Unavailable [phone] REASON FOR VISIT N Monthly b12 Encounters Encounter Location Date Provider Diagnosis [address] [address] 01/18/2025 [facility] [place] PLAN OF TREATMENT Next Appt Details Provider Name:STEVE Altamirano, 02/18/2025 10:15:00 AM, [address] [place] [address], [phone], Provider Name:ELIO TAVERAS, 0 11/29/2025 09:00:00 AM, [address] [place] [address], [phone],
--- OUTSIDE RECORDS SUMMARY | 2025-01-18 07:45 | XMS_ITS ---
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
[2025-01-29 09:20] VITALS: BP 112/70; PULSE 98; O2SAT 99; BMI 23.2
--- NOTE | 2025-01-29 09:20 | A.OFFVIS_ITS ---
Vital Signs 01/29/25 09:20 Height 5 ft 2 in Weight 126 lb 12.253 oz BMI 23.2 BP 112/70 Blood Pressure Location Lt brachial Position Sitting Pulse 98 Pulse Source Pulse Oximeter Pulse Oximetry (%) 99 Oxygen Delivery Method Room Air Intake Visit Reasons: Pulm Nodules Sludge Control Operator Required: No Accompanied by: Self / Same As Patient Allergies alendronate sodium (Fosamax) Allergy (Severe, Verified 01/29/25 09:24) Rash and Hives doxycycline Allergy (Severe, Verified 01/29/25 09:24) Numbness Lips epinephrine Allergy (Severe, Verified 01/29/25 09:24) Tachycardia morphine Allergy (Severe, Verified 01/29/25 09:24) Vomiting terazosin Allergy (Severe, Verified 01/29/25:24) Rash and Hives Avelox Allergy (Severe, Uncoded 07/30/24 09:28) Anaphylaxis Erythromycin Allergy (Severe, Uncoded 07/30/24 09:28) Cramping Floxin Allergy (Severe, Uncoded 07/30/24 09:28) Rash PCN Allergy (Severe, Uncoded 07/30/24 09:28) Rash HPI Comments Details: The patient is a 84 y/o woman with a history of asthma, moderate persistent. Recently she had pulmonary function studies and reviewed in. Appears that she has a mild obstruction. In addition to that her lung volumes have slightly decreased and has a mild diffusion impairment. I need to get her previous PFTs to review and compare. More recently she was exposed to sick contact, great grandchild. She did spend close time with him. After that she noticed that she started developing URI like symptoms. She did have any earache. Denies sore throat. Stat have worsening wheezing coughing. She went to her primary care doctor in order a prednisone taper in addition to Z-Silverio. She took half dose of the prednisone and did not take the zythromax. She went to see her primary care doctor she was given levofloxacin and also prednisone again. She did have a chest x-ray that was read as normal however, after I looked that she did have a left lower lobe opacity. She also had volume loss on the left side. At some point we need to repeat this x-ray. She had blood work although it we do not have all the blood work. D-dimer appear to be less than 0.5. She also had blood cultures which were no growth today. She is still using the Dulera. She felt better when she was using the Perforomist and budesonide, but, she was also using the Dulera in conjunction which is too much long-acting beta agonist. We did review her blood work her IgE level was normal and her eosinophil level were normal suggesting that she is not a candidate for biologic therapy. 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 At this point will try prophylactic antibiotics to treat her chronic bronchitis. We did talk about IgG infusions. However, we really have to weigh the risks and benefits. She did follow-up with her primary care doctor and based on her abnormal chest x-ray and her persistent symptoms in the lack of response she did have a CT scan of the chest done radiology imaging which I personally reviewed. It demonstrated multiple ground- glass the nodular densities in a bronchovascular distribution with some tree-in-bud in these were bilateral primarily in the periphery. No significant lymphadenopathy. These appear to be typical of a lower respiratory viral in fection. Sometimes postviral bacterial infections can also manifest and this form. Less likely malignancy. Inflammatory conditions are also possible. The patient does have arthritis and also rash. 09/28/2022 the patient is here for pulmonary follow-up visit. Overall she is doing well from a respiratory status. She does complaint of sinus congestion and postnasal drip. Moderate severity. She has been using the nasal sprays in addition to the nasal rinsing with partial improvement of the symptoms. The patient's did get her Dulera and her asthma has been better controlled. She has not had to use her rescue medication. She does use a nebulizer at times. The patient did have a sleep study which we reviewed in the office. It was an in- lab study. It was not optimal study since she had a hard time with the vice and hard time staying asleep. However the sleep study she was awake. Still she did have mild sleep apnea during the study. No evidence of any significant hypoxia or significant tachycardia or tachyarrhythmias. The patient does sleep supine all the time. We did talk about positional therapy. She will try that 1st either with a wedge pillow or sleeping on her side and we can always either repeat the overnight oximetry or repeat home sleep study to see if that is adequate. Right now though the patient would like to hold off on CPAP therapy which I think is reasonable. The patient also had a CT scan back in the fall 2021 and she is scheduled to have a repeat CT scan in the fall of 2022 to follow-up with pulmonary nodules the patient also will start Singulair to see if this helps with her allergies. 04/04/2023 the patient is here for a pulmonary follow-up visit. She has had a hard time with breathing for the last 4 weeks. She was very ill and she could barely move she states. She did see her primary care doctor. She had a course of antibiotics and prednisone and then she was given another course but she decided not to take it because she was tired of taking medications. The patient overall feels a little better still having a cough with productive mucus yellowish in color. We did provide with a nebulized treatment in the office with hypertonic saline and levo albuterol to try to get a sputum sample but she was not able to do so. Therefore I did give her a cup in order for her to provide a sputum culture and also for Gram stain and AFB. Prior to her getting sick she did undergo a CT scan of the chest that we personally reviewed in the office. She does have waxing waning pulmonary nodules. Now she has a new nodule measuring about 6-8 mm in size in the left upper lobe area. Please appears to be subsolid in nature. It is concerning in appearance but she has had nodules that wax and wane in the past. Therefore starting of this is a smoldering infectious process versus a concerning finding. She will go ahead and treat her for postviral bacterial infection and after that she can go back on her chronic macrolide suppression therapy. Will go ahead and start budesonide nebulized therapy to try to minimize her use of prednisone and see if this provides some relief. In the meantime I did explain to her the patient is no better or if we can get a sputum sample then bronchoscopy will be helpful. 05/05/2023 the patient is here for a pulmonary follow-up visit. Overall the patient is feeling better. She did finish the Bactrim and also the prednisone. She is back to her baseline. The patient has been using her respiratory medications. We did talk about potentially bronchoscopy her symptoms were not better but at this point the patient is indeed better. His sputum culture was not able to be done however. The patient had been on azithromycin 3 times a week to treat her immunodeficiency. She does have a decrease in the IgG levels both the subclass 1 subclass 2 suggesting a specific immunodeficiency. The patient will continue on the azithromycin for the next few months until she has a repeat CT scan in August. The patient did have a new 6 mm pulmonary nodule documented on the CT scan in January 2023. Therefore will repeat the CT scan with hopes that the nodule resolves or stays stable. 08/31/2023 the patient is here for a pulmonary follow-up visit. At this time she is doing little better. Apparently she was in her usual state health until about a couple weeks ago when she went to the [facility]. There was call then she when the and she was out of her element. The patient did develop a cough also shortness breath and fatigue. She went to her primary care had a telehealth visit. Had an x-ray demonstrating a right lower lobe right middle lobe pneumonia. I did personally review the x-ray and I do agree with the airspace disease. The patient was placed on Levaquin 750 mg for 7 days. She tolerated well with any tendonitis. She was taking yogurt. She did stop the azithromycin while on it. She will go back on the azithromycin at this time. She will also need an EKG. The patient continues with respiratory therapy. Prior to getting sick she did have a CT scan of the chest which we personally reviewed. It appears that the 9 mm pulmonary nodule with halo had resolved in some of the t reating budding also improved suggesting that the azithromycin has been helpful. Although no evidence of any right-sided pneumonia involving at that time. Likely she got sick right after she got the CT scan when she went to the [facility]. The patient did have a new pulmonary nodule measuring 6 mm in size. Will have to continue following serial CT scans at this time. 01/06/2024 the patient is here for a pulmonary follow-up visit. Overall she is doing well. She is responding well to the azithromycin 3 times a week. 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 The patient continues with respiratory therapy. She also continues with her CPT. Her last CT scan of the chest was back in 08/13/2023 demonstrating interval improvement of the nodular densities. Still has has other pulmonary nodules that need to be followed. Therefore, plan to request a repeat CT scan in July or the spring. The patient will continue with current respiratory therapy and antibiotic therapy at this time. If the patient develops any worsening symptoms prior to she will call for an earlier assessment 07/30/2024 the patient is here for a pulmonary follow-up visit. Overall she is doing okay. She did have bout of sinusitis I was pretty significant. She did follow-up with her primary care who ordered a couple courses of prednisone and also Levaquin. Finally the Levaquin did help her. She continues use her nasal sprays to help her with her significant nasal congestion. She still has a lot of erythema and nasal turbinate hypertrophy that is obstructing her flow and also has significant erythema on the posterior pharynx from postnasal drip. From a respiratory status she is doing okay. Her inhalers are working well. She did have a recent CT scan of the chest that had been concerning for finding of the liver. Appear to have like a masslike density in the liver that was documented on the recent CT scan. I did personally review the CAT scan at did appreciate the abnormality. I did look back in previous CAT scans where was not mention however I could appreciate the beginning of something. She is scheduled to have an MRI in the coming days. She will continue her current respiratory th erapy. The patient will continue using her Neti bottle and will add budesonide to it to try to help her with her significant chronic sinusitis and see if this could further improve the sinus congestion. She can do the Neti bottle with budesonide for 4-6 weeks in the go back to the fluticasone at that time. Patient follow-up in 6 months. She has any worsening symptoms she will let me know. She will continue with the azithromycin for now Tuesday for her chronic bronchitis and bronchiectatic changes. She did have some mucus plugging noted on her CT scans so she needs to continue with chest physical therapy and Acapella valve. 01/29/2025 the patient is here for pulmonary follow-up visit. Overall the patient has been doing fair. She did start chemotherapy and immunotherapy for her liver cancer. She is followed closely at [facility]. Back in August she was admitted to [facility] with pneumonia. She had right upper lobe and right lower lobe consolidations. She did have a repeat CAT scan in September demonstrating interval improvement of the airspace disease. And then she had a CAT scan in November that we do not have that she had a [facility] that apparently showed improvement further. We are going to request a CAT scan at this time. She continues use her respiratory inhalers with good response. She did stop the azithromycin at this time which is reasonable. She is having hard time tolerating the chemo she feels like she has no appetite and is having some weight loss. She was wondering about appetite stimulators. I did recommend her asking the doctors at [facility] about using cannabinoid tincture without THC. She can talk about any other options at that point. The patient follow-up in 6 months if eyes call for further recommendations. [facility] Medical History (Updated 07/30/24 @ 21:31 by Mansoor Orta MD) Pancreatic mass Pneumonia Chronic rhinitis Hypogammaglobulinemia Asthma Pneumonitis Pulmonary nodules Social History Patient Tobacco Use Status: Former Tobacco user Tobacco use type: Cigarette Years Smoked: 20 years Review of Systems Const Denies night sweats ENT Denies change in voice, Denies lip swelling, Denies mouth pain, Reports nasal congestion, Reports nasal discharge, Reports sinus pain, Reports sinus pressure and Denies tongue swelling Card Denies chest pain, Denies dyspnea and Reports dyspnea on exertion Resp Denies change in phlegm color, Denies chest congestion, Reports cough, Denies hemoptysis, Denies dyspnea, Reports dyspnea on exertion and Reports wheezing GI Denies abdominal pain Musc Denies no additional complaints Neuro Denies Neuro-related abnormal movements Psych Denies no additional complaints Johny/Lymph Denies easy bleeding and Denies lymphadenopathy Aller/Immun Denies lip swelling, Denies tongue swelling and Reports wheezing Physical Exam Vital Signs: Last Vital Signs Pulse 98 01/29/25 09:20 BP 112/70 01/29/25 09:20 Pulse Ox 99 01/29/25 09:20 Oxygen Delivery Method Room Air 01/29/25 09:20 BMI result Body Mass Index 23.2 Const General: alert Eyes Pupils: Equal, round and reactive pupils present Neck Neck: Yes normal visual inspection, Yes full ROM and Yes no lymphadenopathy Chest Chest palpation & inspection: normal inspection of the chest Resp Auscultation: no rales, no rhonchi, no wheezes and diminished lung sounds Cardio Rate: regular rate Rhythm: regular rhythm Heart sounds: S1 normal heart sound present and S2 normal heart sound present GI Palpation (GI): Soft to palpation and nontender Auscultation: normal bowel sounds Skin General skin exam: rashes and/or lesions noted Neuro Cranial nerves: Yes Equal, round and reactive pupils present Assessment & Plan Assessment & Plan (1) Asthma: Code(s): J45.909 - Unspecified asthma, uncomplicated Category: Medical Qualifiers: Asthma complication type: uncomplicated Asthma persistence: persistent Asthma severity: severe Qualified Code(s): J45.50 - Severe persistent asthma, uncomplicated (2) Pulmonary nodules: Code(s): R91.8 - Other nonspecific abnormal finding of lung field Category: Medical (3) Chronic rhinitis: Code(s): J31.0 - Chronic rhinitis Category: Medical (4) Hypogammaglobulinemia: Code(s): 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 Category: Medical (5) Bronchitis: Code(s): J40 - Bronchitis, not specified as acute or chronic Category: Medical (6) Pancreatic mass: Code(s): K86.89 - Other specified diseases of pancreas Category: Medical Plan continue Dulera short-acting beta agonist as needed continue Singulair Continue nasal therapy with Neti bottle and also fluticasone and Astelin nasal spray CPT with Acapella valve daily Liver cancer followed by [facility] F/U 6 months Coding Level of Care Code Est Pt Level 4 (70989) Complex EM visit Add On G2211 Diagnoses Severe persistent asthma without complication J45.50 Asthma complication type: uncomplicated Asthma persistence: persistent Asthma severity: severe Pulmonary nodules R91.8 Chronic rhinitis J31.0 Hypogammaglobulinemia D80.1 Bronchitis J40 Pancreatic mass K86.89 Time Spent (min) 17
--- OUTSIDE RECORDS SUMMARY | 2025-01-29 10:22 | XMS_ITS | Encounter Summary ---
Author Organization [facility], Address [address] [place] [address] Phone Care Team Providers Care Application Integration Architect Name Role Phone Calin Pearson MD Primary Care Provider Encounter Details Date Type Department Care Team (Late st Contact Info) Description 01/20/2022 Documentation Only [facility], [address] [place] [address] Calin Pearson MD [facility] [employer] [address] Social History Tobacco Use Types Packs/Day [...] on filedocumented in this encounter Care Teams Application Integration Architect Relationship Specialty Start Date End Date Calin Pearson MD [facility] [address] [place] [address] PCP - General Internal Medicine 01/20/22 documented as of this encounter
--- OUTSIDE RECORDS SUMMARY | 2025-01-29 10:22 | XMS_ITS | Encounter Summary ---
Author Organization [facility] Address [address] [place] [address] [place] [phone] Phone Care Team Providers Care Emergency Room Nurse Name Role Phone Calin Pearson MD Primary Care Provider [phone] Calin Pearson MD Unavailable Justin Vazquez RN Unavailable Eden Das RN Unavailable [email or web address] Kayy Aceves RN Unavailable [email or web address] Sierra Glasgow RN Unavailable [email or web address] Zulema Carbajal RN Unavailable [email or web address] Encounter Details Date Type Department Care Team (Late st Contact Info) Description 10/10/2024 Procedure Pass [facility] [address] [place] [address] Social History Tobacco Use Types Packs/Day Years Used Date Smoking Tobacco: Former Cigarettes 2 10 1 964 - 1973 Smokeless Tobacco: Never Alcohol Use Standard Drinks/Week Comments Never 0 (1 standard drink = 0.6 oz pur e alcohol) Child or Family Care Answer Date Record ed Do you have problems with on e of the following making it difficult for you to work, study, or receive health care? No 10/03/2024 Education Answer Date Recorded Are you interested in more education? Not on nate e 08/21/2022 Are you concerned about learning? Not on file 08/21/2022 No 08/21/2022 No 08/21/2022 Food Answer Date Recorded Within the past 6 months we worried whether our food would run out before we got money to buy more. Never True 10/03/2024 Within the past 6 months the food we bought just didn't last and we didn't have enough money to get more. Never True Residential Stability Answer Date Recor ded What is your housing situation today? I have fozia sing 10/03/2024 How many times have you move d in the past 12 months? Zero (I did not move) 10/03/2024 Paying for Meds Answer Date Recorded Do you have trouble paying for medicines? No 10/03/2024 Paying Utility Bills Answer Date Record ed Do you have trouble paying your heating or elect ricity bill? No 10/03/2024 Transportation Answer Date Recorded Has the lack of transportati on kept you from medical appointments or from getting medications? No 10/03/2024 Digital Access Answer Date Recorded No 09/21/2022 No 09/21/2022 Reliable internet access at home? Not on file 09/21/2022 Device with a working camera? Not on file Comments Unknown Sex and Gender Information Value Date Recorded Sex Assigned at Female 09/18/2024 10:59 AM EDT Legal Sex Female 10:51 AM EDT Gender Identity Female 09/18/2024 10:59 AM EDT Sexual Orientation Straight 09/18/2024 10 :59 AM EDT documented as of this encounter Plan of Treatment Upcoming Encounters Date Type Department Care Team (Late st Contact Info) Description 01/23/2025 Procedure Pass [facility], [facility] [address] 4th [place] [address] 01/23/2025 Procedure Pass [facility] [address] [place] [address] 01/23/2025 Procedure Pass [facility] [address] [place] [address] 02/06/2025 10:10 AM EDT Blood Draw Laboratory Services, [facility] at [address] [address] Andressa James MD, PhD [address] [place] [phone] [email or web address] 02/06/2025 11:00 AM EDT Office Visit [facility], [facility] at [address] [address] Andressa James MD, PhD [address] [place] [phone] Mikala@[email or web address] 02/06/2025 12:00 PM EDT Infusion Infusion Therapy Services [facility], [facility] at [address] [address] Andressa James MD, PhD [address] [place] [phone] Mikala@[email or web address] Yuli Mcdonnell RN [address] [place] [phone] [email or web address] 02/13/2025 1:50 PM EDT Blood Draw Laboratory Services, [facility] at [address] [address] Andressa James MD, PhD [address] [place] [phone] Mikala@[email or web address] 02/13/2025 2:30 PM EDT Office Visit [facility], [facility] at [address] [address] Andressa James MD, PhD [address] [place] [phone] [email or web address]@[email or web address] 02/13/2025 3:30 PM EDT Infusion Infusion Therapy Services [facility], [facility] at [address] [address] Andressa James MD, PhD [address] [place] [phone] Mikala@[email or web address] Michelle Argueta RN [address] [place] [phone] [email or web address] 02/26/2025 9:55 AM EST Appointment [facility], [address] [address] Andressa James MD, PhD [address] [place] [phone] [email or web address]@[email or web address] 02/26/2025 1:30 PM EST Appointment [facility] [address] [place] [address] Andressa James MD, PhD [address] [place] [phone] [email or web address]@[email or web address] 02/27/2025 1:10 PM EST Blood Draw Laboratory Services, [facility] at [address] [address] Andressa James MD, PhD [address] [place] [phone] [email or web address]@[email or web address] 02/27/2025 2:00 PM EST Office Visit [facility], [facility] at [address] [address] Andressa James MD, PhD [address] [place] [phone] [email or web address]@[email or web address] 02/27/2025 3:00 PM EST Infusion Infusion Therapy Services [facility] at [address] [address] Andressa James MD, PhD [address] [place] [phone] Mikala@[email or web address] Lucero Palmer RN [address] [place] [phone] Luis Alberto @[email or web address] documented as of this encounter Visit Diagnoses Not on filedocumented in this encounter Care Teams Emergency Room Nurse Relationship Specialty Start Date End Date Calin Pearson MD [address] [place] [address] [email or web address] PCP - General Internal Medicine 07/22/22 Calin Pearson MD [address] [place] [address] [email or web address] Referring Physician Internal Medicine 09/18/24 Justin Vazquez RN [address] [place] [phone] [email or web address] Primary Infusion Nurse 10/04/24 12/04/24 Eden Das RN [address] [place] [phone] [email or web address] Primary Infusion Nurse 12/05/24 Kayy Aceves RN [address] [place] [address] [email or web address] Associate Infusion Nurse 12/05/24 Sierra Glasgow, [address] [place] [address] [email or web address] Associate Infusion Nurse 12/26/24 12/26/24 Zulema Carbajal, [address] [place] [address] [email or web address] Associate Infusion Nurse 11/14/24 documented as of this encounter Additional Source Comments The information contained in this document represents components of the legal health record. It is not the complete legal health record.[facility]
--- OUTSIDE RECORDS SUMMARY | 2025-01-29 10:22 | XMS_ITS | Patient Health Record ---
Author Organization [facility] Address [address], [place] [id number] Care Team Providers Care Client Development Director Name Role Phone ELIO PEARSON Primary Care Provider [phone] [place], [facility]UR[facility] Unavailable [phone] HECTOR VU Unavailable [phone] KEERTHI SAN Unavailable [phone] GEE WHALEN Unavailable [phone] ALLERGIES Allergen (clinical drug ingredient) Drug/Non Drug Allergy documented on EMR Reaction Allergy Type Onset Date Status doxycycline Doxycycline lip swelling Drug Allergy Active EPINEPHrine heart rate Drug Allergy Acti ve erythromycin Erythromycin stomach upset Drug Allergy Active alendronate Fosamax leg cramps Drug Allergy Acti ve ofloxacin Ofloxacin stomach upset Drug Allergy Act pedro moxifloxacin Moxifloxacin rash Drug Allergy A ctive Penicillin rash Drug Allergy Active terazosin Terazosin PITTS Drug Allergy Active REASON FOR REFERRAL Reason KEVAN MAGDALENO MD Liver Mass Referral Organization [facility] Referring Provider First Name ELIO Referring Provider Last Name NITIN Referring Provider Speciality Internal M edicine Referred Provider Specialty Surgical Onc ology General Notes Tracee CASTILLO Call Center 08/10/2024 04:02:33 PM > [facility] Dr Leach surgical oncology at [facility] per Dr Pearson, DX: Liver Mass 5.5cm, suspicious for malignancy., NPI #[id number], , , Secondary requires insurance referral: ANNA NUNEZ Lisa K Referrals 08/13/2024 11:01:44 AM > No Referral Required with Medicare and Medex, faxed to [facility] at [phone] Referral Priority Stat MEDICATIONS Medication SIG (Take, Route, Frequency, Duration) Notes Start Date End Date Status Budesonide 0.5 MG/2ML 1 mL Inhalation BID Not-Taking Dulera 200-5 MCG/ACT 2 puff inhaled daily Not-Taking Rosuvastatin Calcium 40 MG TAKE 1 TABLET BY MOUTH EVERY DAY AT BEDTIME for 90 Active amLODIPine Besylate 5 MG TAKE 1 TABLET B Y MOUTH EVERY DAY Active Albuterol Sulfate 1.25 MG/3ML as directed Inhalation every 4 hrs prn for 30 day(s) 09/26/2024 Active Eliquis 5 MG as directed Orally twice a day Active Ondansetron 8 MG 1 tablet on the tong ue and allow to dissolve as needed Orally Once a day Active IMMUNIZATIONS Vaccine Route Administration Date Status Daphnie zavala Afluria IM Intramuscular 03/03/2022 Administered B-12 Vitamin Injection Dose: 1000mcg Unknown 01/16/2010 Administered B-12 Vitamin Injection Dose: 1000mcg Unknown 01/23/2010 Administered B-12 Vitamin Injection Dose: 1000mcg Unknown 01/30/2010 Administered B-12 Vitamin Injection Dose: 1000mcg Unknown 02/05/2010 Administered B-12 Vitamin Injection Dose: 1000mcg Unknown 03/13/2010 Administered B-12 Vitamin Injection Dose: 1000mcg Unknown 04/15/2010 Administered B-12 Vitamin Injection Dose: 1000mcg Unknown 05/15/2010 Administered B-12 Vitamin Injection Dose: 1000mcg Unknown 06/17/2010 Administered B-12 Vitamin Injection Dose: 1000mcg Unknown 07/15/2010 Administered B-12 Vitamin Injection Dose: 1000mcg Unknown 08/12/2010 Administered B-12 Vitamin Injection Dose: 1000mcg Unknown 09/09/2010 Administered B-12 Vitamin Injection Dose: 1000mcg Unknown 10/12/2010 Administered B-12 Vitamin Injection Dose: 1000mcg Unknown 11/11/2010 Administered B-12 Vitamin Injection Dose: 1000mcg Unknown 12/21/2010 Administered B-12 Vitamin Injection Dose: 1000mcg IM Intramuscular 01/14/2011 Administered B-12 Vitamin Injection Dose: 1000mcg Unknown 02/15/2011 Administered B-12 Vitamin Injection Dose: 1000mcg Unknown 03/12/2011 Administered B-12 Vitamin Injection Dose: 1000mcg Unknown 04/09/2011 Administered B-12 Vitamin Injection Dose: 1000mcg Unknown 05/07/2011 Administered B-12 Vitamin Injection Dose: 1000mcg Unknown 06/11/2011 Administered B-12 Vitamin Injection Dose: 1000mcg Unknown 07/13/2011 Administered B-12 Vitamin Injection Dose: 1000mcg Unknown 08/10/2011 Administered B-12 Vitamin Injection Dose: 1000mcg Unknown 09/07/2011 Administered B-12 Vitamin Injection Dose: 1000mcg Unknown 10/08/2011 Administered B-12 Vitamin Injection Dose: 1000mcg Unknown 11/05/2011 Administered B-12 Vitamin Injection Dose: 1000mcg Unknown 12/03/2011 Administered B-12 Vitamin Injection Dose: 1000mcg Unknown 01/03/2012 Administered FLU- FLUVIRIN, PRE-FILLED SYRINGE 0.5 ml Unknown 01/18/2013 Administered H1N1 inactivated injectable IM Intramuscular 05/09/2009 Administered Influenza Unknown 01/03/2009 Administered Influenza Unknown 02/05/2010 Administered Influenza IM Intramuscular 01/25/2011 Administered Influenza Unknown 02/02/2012 Administered Influenza IM Intramuscular 01/06/2015 Administered Influenza, Flublok IM Intramuscular 03/09/2021 Administere d Influenza, Flublok IM Intramuscular 02/01/2023 Administere d Pt refuse high dose, request regular dose only Influenza, Flublok IM Intramuscular 03/09/2024 Administere d Influenza, Fluvirin multi dose Unknown 01/06/2015 Pending Influenza, Fluzone HD 65+ IM Intramuscular 01/06/2017 Administered Influenza, Fluzone QUAD, 3+ yrs, IM Intramuscular 01/18/2018 Administered per PT request,and PCP Fluzone Quad administered Influenza, Fluzone QUAD, 3+ yrs, IM Intramuscular 01/26/2019 Administered Influenza, Fluzone Quad.5 ml, IM Intramuscular 01/20/2016 Administered Moderna Bivalent IM Intramuscular 02/02/2024 Administered Moderna COVID-19 mRNA LNP-S PF IM Intramuscular 02/17/2022 Administered Moderna COVID-19 mRNA LNP-S PF IM Intramuscular 01/17/2025 Administered Given at [facility] T: [id number] Pneumococcal (PPV23, adult) IM Intramuscular 03/16/2010 Administered Pneumococcal, PPV 23 Unknown 11/09/2004 Administered Pneumococcal,Prevn ar 13, PEDS STATE SUPPLIED Unknown 07/23/2014 Pending [id number] IM Intramuscular 10/10/2023 Administered RSV,recombinant,pr otein subunit,RSVpreF, adjuvant IM Intramuscular 01/11/2024 Administered TDAP Unknown 10/16/2023 Administered Zostavax (Shingles) Unknown 10/08/2011 Administered PREVNAR 13, STATE SUPPLIED IM Intramuscular 07/23/2014 Administered SOCIAL HISTORY Tobacco Use: Social History Observation Description Date Details (start date - stop date) Former Smoker NA - NA Sex Assigned At : Social History Observation Description Sex Assigned At Unknown Smoking Question Answer Notes Are you a: former smoker Alcohol Screen Question Answer Notes Did you have a drink contain ing alcohol in the past year? Yes How often did you have a dri nk containing alcohol in the past year? Monthly or less (1 point) How many drinks did you have on a tpical day when you were drinking in the past year? 1 or 2 (0 points) How often did you have six o r more drinks on one occassion in the past year? Never (0 points) Points 1 Interpretation Negative Section Notes: quit at age 33; h/o 2-3 ppd x 10 years quit at age 33; h/o 2-3 ppd x 10 years quit at age 33; h/o 2-3 ppd x 10 years quit at age 33; h/o 2-3 ppd x 10 years quit at age 33; h/o 2-3 ppd x 10 years quit at age 33; h/o 2-3 ppd x 10 years quit at age 33; h/o 2-3 ppd x 10 years quit at age 33; h/o 2-3 ppd x 10 years quit at age 33; h/o 2-3 ppd x 10 years quit at age 33; h/o 2-3 ppd x 10 years quit at age 33; h/o 2-3 ppd x 10 years quit at age 33; h/o 2-3 ppd x 10 years quit at age 33; h/o 2-3 ppd x 10 years quit at age 33; h/o 2-3 ppd x 10 years quit at age 33; h/o 2-3 ppd x 10 years quit at age 33; h/o 2-3 ppd x 10 years quit at age 33; h/o 2-3 ppd x 10 years quit at age 33; h/o 2-3 ppd x 10 years quit at age 33; h/o 2-3 ppd x 10 years quit at age 33; h/o 2-3 ppd x 10 years quit at age 33; h/o 2-3 ppd x 10 years quit at age 33; h/o 2-3 ppd x 10 years quit at age 33; h/o 2-3 ppd x 10 years quit at age 33; h/o 2-3 ppd x 10 years quit at age 33; h/o 2-3 ppd x 10 years quit at age 33; h/o 2-3 ppd x 10 years quit at age 33; h/o 2-3 ppd x 10 years quit at age 33; h/o 2-3 ppd x 10 years quit at age 33; h/o 2-3 ppd x 10 years quit at age 33; h/o 2-3 ppd x 10 years quit at age 33; h/o 2-3 ppd x 10 years quit at age 33; h/o 2-3 ppd x 10 years quit at age 33; h/o 2-3 ppd x 10 years quit at age 33; h/o 2-3 ppd x 10 years quit at age 33; h/o 2-3 ppd x 10 years quit at age 33; h/o 2-3 ppd x 10 years quit at age 33; h/o 2-3 ppd x 10 years quit at age 33; h/o 2-3 ppd x 10 years quit at age 33; h/o 2-3 ppd x 10 years quit at age 33; h/o 2-3 ppd x 10 years quit at age 33; h/o 2-3 ppd x 10 years quit at age 33; h/o 2-3 ppd x 10 years quit at age 33; h/o 2-3 ppd x 10 years quit at age 33; h/o 2-3 ppd x 10 years quit at age 33; h/o 2-3 ppd x 10 years quit at age 33; h/o 2-3 ppd x 10 years quit at age 33; h/o 2-3 ppd x 10 years quit at age 33; h/o 2-3 ppd x 10 years quit at age 33; h/o 2-3 ppd x 10 years quit at age 33; h/o 2-3 ppd x 10 years quit at age 33; h/o 2-3 ppd x 10 years quit at age 33; h/o 2-3 ppd x 10 years quit at age 33; h/o 2-3 ppd x 10 years quit at age 33; h/o 2-3 ppd x 10 years quit at age 33; h/o 2-3 ppd x 10 years quit at age 33; h/o 2-3 ppd x 10 years quit at age 33; h/o 2-3 ppd x 10 years quit at age 33; h/o 2-3 ppd x 10 years quit at age 33; h/o 2-3 ppd x 10 years quit at age 33; h/o 2-3 ppd x 10 years quit at age 33; h/o 2-3 ppd x 10 years quit at age 33; h/o 2-3 ppd x 10 years quit at age 33; h/o 2-3 ppd x 10 years quit at age 33; h/o 2-3 ppd x 10 years quit at age 33; h/o 2-3 ppd x 10 years quit at age 33; h/o 2-3 ppd x 10 years quit at age 33; h/o 2-3 ppd x 10 years quit at age 33; h/o 2-3 ppd x 10 years quit at age 33; h/o 2-3 ppd x 10 years quit at age 33; h/o 2-3 ppd x 10 years quit at age 33; h/o 2-3 ppd x 10 years quit at age 33; h/o 2-3 ppd x 10 years quit at age 33; h/o 2-3 ppd x 10 years quit at age 33; h/o 2-3 ppd x 10 years 1971 quit at age 33; h/o 2-3 ppd x 10 years 1971 quit at age 33; h/o 2-3 ppd x 10 years quit at age 33; h/o 2-3 ppd x 10 years PROBLEMS Problem Type ICD Code Onset Dates Problem Status W/U Status Risk SNOMED Code Notes Problem Headache (784.0) Active confirmed 50968 002 Problem Tick-bite fever (066.1) Active confirmed Problem Cerumen (380.4) Active confirmed Cerume n (52799819) Problem Hypertension (401.9) Active confirmed Low Hypertension (25549438) Problem Acute bronchitis with bronchospasm (466.0) Active confirmed Acute bronchiti s with bronchospasm (06977625) Problem Sinusitis (473.9) Active confirmed Sinu sitis (46537153) Problem Acute extrinsic asthma (493.02) Active confirmed Acute exacer bation of immunoglobulin E-mediated allergic asthma (524960516) Problem Intertrigo (695.89) Active confirmed Intertrigo (96011313) Problem 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) Active confirmed Xeroderma (68951519) Problem Palpitation (785.1) Active confirmed 05543234 Problem Abnormal thyroid function study (794.5) Active confirmed Thyroid functio n tests abnormal (676953021) Problem Vitamin D deficiency NOS (268.9) Active confirmed Vitamin D deficiency (92991913) Problem Hypercholesterole gentry (272.0) Active confirmed Hypercholestero jose ia (82882420) Problem HYPERCALCEMIA (275.42) Active confirmed Hypercalcemia (91311847) Problem Hypokalemia (276.8) Active confirmed Hypokalemia (20474926) Problem Pernicious anemia (281.0) Active confirmed Pernicious anem ia (23220299) Problem Acute bronchitis (466.0) Active confirmed Acute bronchiti s (50261061) Problem 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) Active confirmed Lichen planus (3730443) Problem Osteoporosis NOS (733.00) Active confirmed Osteoporosis (16826589) Problem Edema (782.3) Active confirmed Edema (7 8977222) Problem Hyperparathyroidi sm, primary (252.01) Active confirmed Primary hyperparathyroidis m (23072018) Problem ALLERGIC RHINITIS NOS (477.9) Active confirmed Allergic rhinit is (56233448) Problem ASTHMA NOS W (AC) EXAC (493.92) Active confirmed Low Exacerbation o f asthma (628259001) Problem HYPERPARATHYROIDI SM NOS (252.00) Active confirmed Hyperparathy roidis m (56541694) Problem NECK DISORDER/SYMPT NOS (723.9) Active confirmed Musculoskeletal disorder of the neck (868945867) Problem 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 (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) Problem PAP SMEAR UNSATISFACTORY (795.08) Active confirmed Cervical smear - inadequate specimen (287657663) Problem Fasting glucose impairment (790.21) Active confirmed Impaired fastin g glycaemia (490879613) Problem ASTHMA NOS (493.90) Active confirmed Asthma (328607762) uncont rolled Problem FAMILY HX-GI MALIGNANCY (V16.0) Active confirmed Family history of malignant neoplasm of gastrointestinal tract (974707834) Problem WOUND DISRUPTION NOS (998.30) Active confirmed Traumatic wound dehiscence (810309123) Problem Essential hypertension (I10) Active confirmed 47846991 Problem Vitamin D deficiency (E55.9) Active confirmed 66923636 Problem Bronchitis (J40) Active confirmed 90835 004 Problem Headache (R51) Active confirmed 6597003 2 Problem Fatigue (R53.83) Active confirmed 38825 001 Problem Cervicalgia (M54.2) Active confirmed 77285552 Problem Rash (R21) Active confirmed 816312895 Problem Hypercholesterole gentry (E78.0) Active confirmed 61435856 Problem HTN (hypertension), benign (I10) Active confirmed 37437128 Problem Essential (primary) hypertension (I10) Active confirmed 78064195 Problem Sinus congestion (R09.81) Active confirmed 38969212 Problem COPD with acute exacerbation (J44.1) Active confirmed Acute exacerbat ion of chronic obstructive airways disease (058496150) Problem Other seasonal allergic rhinitis (J30.2) Active confirmed 561196722 Problem Paresthesia (R20.2) Active confirmed 92311741 Problem Osteoporosis (M81.0) Active confirmed 24773945 Problem [place] (obstructive sleep apnea) (G47.33) Active confirmed 20339720 Problem B12 deficiency (E53.8) Active confirmed 322501969 Problem Tick bite (919.4) Active confirmed 9589 8004 Problem COPD exacerbation (J44.1) Active confirmed 012962646 Problem Pain in right knee (M25.561) Active confirmed 48276247 Problem Asthma exacerbation (J45.901) Active confirmed 356115863 Problem Venous insufficiency (I87.2) Active confirmed Peripheral veno us insufficiency (40140386) Problem Encounter for general adult medical examination with abnormal findings (Z00.01) Active confirmed Problem, abnorm al examination (97908418) Problem Hyperlipidemia, unspecified (E78.5) Active confirmed Hyperlipidemia (65412580) Problem Hypercalcemia (E83.52) Active confirmed 26332277 Problem Malignant neoplasm of liver, not specified as primary or secondary (C22.9) Active confirmed Malignant neoplasm of liver (22920659) Problem 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) Active confirmed Pernicious anem ia (07853199) Problem Other chronic pain (G89.29) Active confirmed 91610623 Problem Nonrheumatic aortic (valve) insufficiency (I35.1) Active confirmed Aortic valve disorder (1171744) Problem Venous insufficiency (chronic) (peripheral) (I87.2) Active confirmed Peripheral veno us insufficiency (47671613) Problem Chronic obstructive pulmonary disease with (acute) exacerbation (J44.1) Active confirmed Acute exacerbat ion of chronic obstructive airways disease (152797416) Problem Chronic respiratory failure with hypoxia (J96.11) Active confirmed Chronic respiratory failure (87871952) Problem Localized edema (R60.0) Active confirmed 314123722 Problem Stiffness of knee joint (719.56) Active confirmed 001553566 Problem History of colonic polyps (Z86.010) Active confirmed 633769149 Problem Moderate persistent asthma without complication (J45.40) Active confirmed 849392773 Problem Mild intermittent asthma without complication (J45.20) Active confirmed 478409073 Problem Prediabetes (R73.09) Active confirmed 9619425 Problem Acute bronchitis, unspecified organism (J20.9) Active confirmed 65087168 Problem Skin cancer (C44.90) Active confirmed 976082171 Problem History of primary hyperparathyroidi sm (Z86.39) Active confirmed 02113655691007 Problem Cramp in lower extremity associated with sleep (G47.62) Active confirmed 950538461319875 Problem Nonrheumatic aortic valve insufficiency (I35.1) Active confirmed 68185460 Problem 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) Active confirmed 5247 5004 Problem Fluttering sensation of heart (R00.2) Active confirmed 872389655 Problem Stiffness of ankle joint (M25.673) Active confirmed 498055140 Problem Family history of hemochromatosis (Z83.49) Active confirmed 492510737 Problem Leukocytosis, unspecified type (D72.829) Active confirmed 681141346 Problem High thyroid stimulating hormone (TSH) level (R94.6) Active confirmed 682522752 Problem Hyperlipidemia, unspecified hyperlipidemia type (E78.5) Active confirmed 58732809 Problem Dry eyes (H04.123) Active confirmed 043041354 Problem Edema, unspecified type (R60.9) Active confirmed 333415743 Problem History of parathyroidectomy (E89.2) Active confirmed 304330297 Problem History of vitamin D deficiency (Z86.39) Active confirmed 782638932 Problem Pain of fifth toe (M79.676) Active confirmed 686650496 Problem Type 2 diabetes mellitus without complication, without long-term current use of insulin (E11.9) Active confirmed 699433051 Problem Medication reaction, initial encounter (T88.7XXA) Active confirmed 56544112 Problem Acute non-recurrent sinusitis, unspecified location (J01.90) Active confirmed 36195170 Problem Elevated cholesterol (E78.00) Active confirmed Pure hypercholesterolem ia (083878581) Problem History of skin cancer (Z85.828) Active confirmed 263788478 Problem Hepatic lesion (K76.9) Active confirmed 126620982 Problem Dyslipidemia (E78.5) Active confirmed Dyslipidemia (051053350) Problem Venous stasis dermatitis of left lower extremity (I87.2) Active confirmed 74454892 Problem Moderate persistent reactive airway disease with acute exacerbation (J45.41) Active confirmed 398151203039985 Problem Mild intermittent asthmatic bronchitis with acute exacerbation (J45.21) Active confirmed 175470196 Problem Aortic valve insufficiency, etiology of cardiac valve disease unspecified (I35.1) Active confirmed 68504631 Problem Moderate persistent asthmatic bronchitis with acute exacerbation (J45.41) Active confirmed 993212106012096 Problem Abnormal CT of the chest (R93.89) Active confirmed 756490161 Problem Chronic obstructive pulmonary disease with (acute) lower respiratory infection (J44.0) Active confirmed Chronic obstructive pulmonary disease with acute lower respiratory infection (107061684) Problem Aortic ectasia, 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) Active confirmed 872346109799832 Problem 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) Active confirmed 34416286 Problem Adenocarcinoma of liver (C22.9) Active confirmed 788554950 VITAL SIGNS Blood pressure diastolic 50 mm Hg 11/23/2024 Height 62.5 in 11/23/2024 Blood pressure systolic 102 mm Hg 11/23/2024 Weight 130 lbs 11/23/2024 BMI 23.4 kg/m2 11/23/2024 Encounters Encounter Location Date Provider Diagnosis [facility] [address] [place] [address] 4 NURSING [facility] [address] [place] [address] 4 ELIO PEARSON [facility] [address] [place] [address] 4 ELIO PEARSON Essential (primary) hypertension I10 ; High thyroid stimulating hormone (TSH) level R94.6 and Prediabetes R73.09 [facility] [address] [place] [address] 4 [facility] Vitamin B12 deficiency E53.8 [facility] [address] [place] [address] 4 ELIO PEARSON Breast cancer screening by mammogram Z12.[address] [address] 4 ELIO PEARSON [facility] [address] [place] [address] 4 ELIO PEARSON Lumbar back pain M54.50 and Left flank pain R10.9 [facility] [address] [place] [address] 4 ELIO PEARSON [facility] [address] [place] [address] 4 [facility] [address] [place] [address] 4 ELIO PEARSON [facility] [address] [place] [address] 4 ELIO PEARSON [facility] [address] [place] [address] 4 NURSING [facility] [address] [place] [address] 4 [facility] Vitamin B12 deficiency E53.8 [facility] [address] [place] [address] 4 ELIO PEARSON [facility] [address] [place] [address] 4 ELIO PEARSON [facility] [address] [place] [address] 4 ELIO PEARSON Lumbar back pain M54.50 ; Essential hypertension I10 ; Left flank pain R10.9 ; Acute non-recurrent sinusitis, unspecified location J01.90 ; Moderate persistent asthma without complication J45.40 ; Other seasonal allergic rhinitis J30.2 ; Osteoporosis M81.0 ; B12 deficiency E53.8 ; History of primary hyperparathyroidism Z86.39 ; [place] (obstructive sleep apnea) G47.33 ; Venous insufficiency I87.2 ; Subclinical hypothyroidism E03.8 ; History of skin cancer Z85.828 ; Aortic ectasia, 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 ; History of colonic polyps Z86.010 ; Type 2 diabetes mellitus without complication, without long-term current use of insulin E11.9 ; Hyperlipidemia, unspecified hyperlipidemia type E78.5 ; Hemosiderin pigmentation of skin L81.8 ; Ground glass opacity present on imaging of lung R91.8 ; 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 ; Nonrheumatic aortic valve insufficiency I35.1 ; Skin cancer C44.90 ; Hypercalcemia E83.52 ; Family history of hemochromatosis Z83.49 ; Dry eyes H04.123 ; Stiff joint M25.60 and Bruising T14.8XXA [address] [address] [address] [address] 4 [facility] Vitamin B12 deficiency E53.[address] [address] 5 [facility] Vitamin B12 deficiency E53.[address] [address] 5 NURSING [place] Vitamin B12 deficiency E53.[address] [address] 5 ELIO PEARSON [address] [address] 5 ELIO PEARSON Acute otitis media, unspecified otitis media type H66.[address] [address] 5 ELIO PEARSON [address] [address] 5 ELIO PEARSON [address] [place] [address] 5 ELIO PEARSON [facility] [address] [place] [address] 5 ELIO PEARSON Aching headache R51.9 and Bilateral acute serous otitis media, recurrence not specified H65.03 [facility] [address] [place] [address] 5 ELIO PEARSON [facility] [address] [place] [address] 5 ELIO PEARSON [facility] [address] [place] [address] 5 ELIO PEARSON [facility] [address] [place] [address] 5 [facility] [place] Vitamin B12 deficiency E53.8 [facility] [address] [place] [address] 5 ELIO PEARSON [facility] [address] [place] [address] 5 ELIO PEARSON Hepatic lesion K76.9 ; Upper back pain M54.9 and Ecchymosis R58 [facility] [address] [place] [address] 5 ELIO PEARSON [facility] [address] [place] [address] 5 ELIO PEARSON [facility] [address] [place] [address] 5 ELIO PEARSON [facility] [address] [place] [address] 5 ELIO PEARSON [facility] [address] [place] [address] 5 ELIO PEARSON [facility] [address] [place] [address] 5 ELIO PEARSON [facility] [address] [place] [address] 5 ELIO PEARSON Liver mass R16.0 [facility] [address] [place] [address] 5 [facility] [place] Vitamin B12 deficiency E53.8 [facility] [address] [place] [address] 5 ELIO PEARSON [facility] [address] [place] [address] 5 ELIO NITIN [facility] [address] [place] [address] 5 ELIO PEARSON [facility] [address] [place] [address] 5 ELIO PEARSON [facility] [address] [place] [address] 5 ELIO PEARSON Liver mass R16.0 [facility] [address] [place] [address] 5 ELIO PEARSON [facility] [address] [facility] [place] [address] 5 ELIO PEARSON [facility] [address] [place] [address] 5 NURSING [facility] [address] [place] [address] 5 ELIO PEARSON [facility] [address] [place] [address] 5 [facility] [address] [place] [address] 5 HECTOR VU [facility] [address] [place] [address] 5 NURSING [facility] [address] [place] [address] 5 ELIO PEARSON [facility] [address] [place] [address] 5 ELIO PEARSON [facility] [address] [place] [address] 5 ELIO PEARSON [facility] [address] [place] [address] 5 ELIO PEARSON [facility] [address] [place] [address] 5 KEERTHI SAN [facility] [address] [place] [address] 5 [facility] follow-up Z09 ; Community acquired pneumonia of right lung, unspecified part of lung J18.9 ; COPD with acute exacerbation J44.1 ; Acute respiratory failure with hypoxia J96.01 ; Essential (primary) hypertension I10 ; B12 deficiency E53.8 and Adenocarcinoma of liver C22.9 [facility] [address] [place] [address] 5 HECT[facility] VU [facility] [address] [place] [address] 5 ELIO PEARSON [facility] [address] [place] [address] 5 ELIO PEARSON [facility] [address] [place] [address] 5 ELIO PEARSON [facility] [address] [place] [address] 5 ELIO PEARSON [facility] [address] [place] [address] 5 ELIO PEARSON Persistent cough R05.3 and Community acquired pneumonia of right lung, unspecified part of lung J18.9 [facility] [address] [place] [address] 5 ELIO PEARSON [facility] [address] [place] [address] 5 ELIO PEARSON [facility] [address] [place] [address] 5 ELIO PEARSON [facility] [address] [address] 5 ELIO PEARSON [facility] [address] [place] [address] 5 ELIO PEARSON Community acquired pneumonia of right lung, unspecified part of lung J18.9 and Persistent cough R05.3 [facility] [address] [place] [address] 5 [facility]SING [place] Vitamin B12 deficiency E53.8 [facility] [address] [place] [address] 5 ELIO PEARSON [facility] [address] [place] [address] 5 ELIO PEARSON Essential (primary) hypertension I10 [address] [address] 5 [facility] Vitamin B12 deficiency E53.[address] [address] 5 ELIO RO [address] [address] 5 ELIO PEARSON Essential (primary) hypertension I10 [address] [address] 5 ELIO RO [address] [address] 5 ELIO PEARSON Essential (primary) hypertension I10 ; Community acquired pneumonia of right lung, unspecified part of lung J18.9 ; Persistent cough R05.3 ; COPD with acute exacerbation J44.1 ; Acute respiratory failure with hypoxia J96.01 ; B12 deficiency E53.8 ; Adenocarcinoma of liver C22.9 ; Upper back pain M54.9 ; Ecchymosis R58 ; Aching headache R51.9 ; Bilateral acute serous otitis media, recurrence not specified H65.03 ; Acute otitis media, unspecified otitis media type H66.90 ; Moderate persistent asthma without complication J45.40 ; Other seasonal allergic rhinitis J30.2 ; Osteoporosis M81.0 ; History of primary hyperparathyroidism Z86.39 ; [place] (obstructive sleep apnea) G47.33 ; Venous insufficiency I87.2 ; Subclinical hypothyroidism E03.8 ; History of skin cancer Z85.828 ; Aortic ectasia, 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 ; History of colonic polyps Z86.010 ; Type 2 diabetes mellitus without complication, without long-term current use of insulin E11.9 ; Hyperlipidemia, unspecified hyperlipidemia type E78.5 ; Hemosiderin pigmentation of skin L81.8 ; Ground glass opacity present on imaging of lung R91.8 ; 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 ; Nonrheumatic aortic valve insufficiency I35.1 ; Skin cancer C44.90 ; Hypercalcemia E83.52 ; Family history of hemochromatosis Z83.49 ; Dry eyes H04.123 ; Stiff joint M25.60 and Bruising T14.8XXA [address] [address] 5 HOWARD RO Medicare annual wellness visit, subsequent Z00.00 [facility] [address] [place] [address] 5 [facility] Vitamin B12 deficiency E53.8 [facility] [address] [place] [address], [place] [address] 5 [facility] [address] [place] [address], [place] [address] 5 [facility] [address] [place] [address], [place] [address] 5 [facility] [address] [place] [address], [place] [address] 5 [facility] [address] [place] [address], [place] [address] [place] [address] 5 [facility] Vitamin B12 deficiency anemia due to intrinsic factor deficiency D51.0 ASSESSMENTS Encounter Date Diagnosis Assessment Notes Treatment Notes Treatment Clinical Notes Section Notes 07/19/2024 Hepatic lesion (ICD- 10 - K76.9) prob cyst 07/19/2024 Upper back pain (ICD-10 - M54.9) prob muscle spasm; warm compress/BenGay qid; no heavy lifting/strenuous exercise; no driving/ETOH/oper ating machinery; declines imaging 07/06/2024 Aching headache (ICD-10 - R51.9) pt states that she has had persistent PITTS since her sx started and she doesn't usually get PITTS-will do HCT although prob related to sinus disease 07/06/2024 Bilateral acute sero us otitis media, recurrence not specified (ICD-10 - H65.03) ?FREEMAN vs ETD vs doubt sinusitis, but can finish off ABX; side effects, risks, and benefits of medication reviewed; pt does not tolerate prednisone, but tolerated medrol dosepak; call next week with update 06/29/2024 Acute otitis media, unspecified otitis media type (ICD-10 - H66.90) side effects, risks, and benefits of medication reviewed; rest/fluids; pt has many ABX allergies and states that levaquin is th eonly one that she can take; pt reports upset stomach with prednisone; side effects, risks, and benefits of medication reviewed; call next week with update; advised pt to check covid/flu swab 07/16/2024 Vitamin B12 deficien cy (ICD-10 - E53.8) 06/15/2024 Vitamin B12 deficien cy (ICD-10 - E53.8) 05/15/2024 Vitamin B12 deficien cy (ICD-10 - E53.8) 04/13/2024 Vitamin B12 deficien cy (ICD-10 - E53.8) 03/13/2024 Vitamin B12 deficien cy (ICD-10 - E53.8) 03/06/2024 Lumbar back pain (ICD-10 - M54.50) prob strain vs spasm; warm compress/BenGay qid; no heavy lifting/strenuous exercise; side effects, risks, and benefits of medication reviewed; will r/o compression fracture; can use advil 600 mg tid x 7 days 03/06/2024 Left flank pain (ICD-10 - R10.9) pt's chiropractor is concerned about kidney stone althugh pt had transient improvement in sx after chiropractic maneuvers-wants to do CT 02/29/2024 Breast cancer screening by mammogram (ICD-10 - Z12.31) 02/09/2024 High thyroid stimulating hormone (TSH) level (ICD-10 - R94.6) 02/09/2024 Essential (primary) hypertension (ICD-10 - I10) 02/09/2024 Vitamin B12 deficien cy (ICD-10 - E53.8) 11/28/2024 Community acquired pneumonia of right lung, unspecified part of lung (ICD-10 - J18.9) resolved 11/28/2024 Essential (primary) hypertension (ICD-10 - I10) good control with BP < 130/80; check BP at home weekly and bring in log 04/09/2024 Lumbar back pain (ICD-10 - M54.50) resolved 04/09/2024 Essential hypertensi on (ICD-10 - I10) good control < 140/90; low sodium diet reviewed 01/18/2025 Vitamin B12 deficien cy anemia due to intrinsic factor deficiency (ICD-10 - D51.0) 11/28/2024 Medicare annual wellness visit, subsequent (ICD-10 - Z00.00) Health Risk Assessment form reviewed with patient and scanned into chart 11/23/2024 Essential (primary) hypertension (ICD-10 - I10) good control with BP < 130/80; check BP at home weekly and bring in log 12/18/2024 Vitamin B12 deficien cy (ICD-10 - E53.8) 10/24/2024 Essential (primary) hypertension (ICD-10 - I10) 11/16/2024 Vitamin B12 deficien cy (ICD-10 - E53.8) 10/16/2024 Vitamin B12 deficien cy (ICD-10 - E53.8) 10/16/2024 Community acquired pneumonia of right lung, unspecified part of lung (ICD-10 - J18.9) s/p rx 10/01/2024 Persistent cough (ICD-10 - R05.3) prob inflammatory reaction from recent pneumonia, but will do CT chest to evaluate for worsening pneumonia; side effects, risks, and benefits of medication reviewed 10/01/2024 Community acquired pneumonia of right lung, unspecified part of lung (ICD-10 - J18.9) s/p rx 09/26/2024 Hospital discharge follow-up (ICD-10 - Z09) Hospital records and data reviewed. Medication reconciliation was completed with facility discharge summary. 09/14/2024 Liver mass (ICD-10 - R16.0) reviewed options for second opinion-advised [place] [facility] [facility] be an excellent choice for another opinion and that it would be pt/family preference; advised that I would be happy to facilitate these appointments, but that I would recommned first to d/w Dr Magdaleno to see if she has anyone at either institution that she would suggest-pt will d/w Dr Magdaleno next week and get back to me 08/20/2024 Vitamin B12 deficien cy (ICD-10 - E53.8) 08/14/2024 Liver mass (ICD-10 - R16.0) 02/09/2024 Prediabetes (ICD-10 - R73.09) 11/28/2024 Persistent cough (ICD-10 - R05.3) resolved 10/16/2024 Persistent cough (ICD-10 - R05.3) prob inflammatory reaction from recent pneumonia, but will do CT chest to evaluate for worsening pneumonia; side effects, risks, and benefits of medication reviewed 09/26/2024 Community acquired pneumonia of right lung, unspecified part of lung (ICD-10 - J18.9) She will complete above medication. Can take zyrtec for itching. If rash or trouble breathing or swallowing develop she will follow up immediately 07/19/2024 Ecchymosis (ICD-10 - R58) prob traumatic; offered w/u incluidng x-ray, u/s-declines; warm compress qid/elevate LE 04/09/2024 Left flank pain (ICD-10 - R10.9) resolved 09/26/2024 COPD with acute exacerbation (ICD-10 - J44.1) Will complete prednisone taper, follow up with Dr. Orta 11/28/2024 COPD with acute exacerbation (ICD-10 - J44.1) resolved 04/09/2024 Acute non-recurrent sinusitis, unspecified location (ICD-10 - J01.90) resolved 04/09/2024 Moderate persistent asthma without complication (ICD-10 - J45.40) stable; f/u with pulmonary 09/26/2024 Acute respiratory failure with hypoxia (ICD-10 - J96.01) Her sats or above 90% on 2 liters. 11/28/2024 Acute respiratory failure with hypoxia (ICD-10 - J96.01) resolved 09/26/2024 Essential (primary) hypertension (ICD-10 - I10) BP at goal 04/09/2024 Other seasonal allergic rhinitis (ICD-10 - J30.2) stable 11/28/2024 B12 deficiency (ICD- 10 - E53.8) continue B12 injections 11/28/2024 Adenocarcinoma of liver (ICD-10 - C22.9) f/u with onc 04/09/2024 Osteoporosis (ICD-10 - M81.0) f/u with endocrine; weight bearing exercise 09/26/2024 B12 deficiency (ICD- 10 - E53.8) can resume B12 injections 04/09/2024 B12 deficiency (ICD- 10 - E53.8) 09/26/2024 Adenocarcinoma of liver (ICD-10 - C22.9) Will see [facility] on 10/0311/28/2024 Upper back pain (ICD-10 - M54.9) resolved 04/09/2024 History of primary hyperparathyroidism (ICD-10 - Z86.39) f/u with endocrine 11/28/2024 Ecchymosis (ICD-10 - R58) resolved 11/28/2024 Aching headache (ICD-10 - R51.9) resolved 04/09/2024 A[place] (obstructive sle ep apnea) (ICD-10 - G47.33) f/u with Dr Orta 04/09/2024 Venous insufficiency (ICD-10 - I87.2) better 11/28/2024 Bilateral acute sero us otitis media, recurrence not specified (ICD-10 - H65.03) resolved 11/28/2024 Acute otitis media, unspecified otitis media type (ICD-10 - H66.90) resolved 04/09/2024 Subclinical hypothyroidism (ICD-10 - E03.8) f/u with endocrine 11/28/2024 Moderate persistent asthma without complication (ICD-10 - J45.40) stable; f/u with pulmonary 04/09/2024 History of skin canc er (ICD-10 - Z85.828) f/u with derm 04/09/2024 Aortic ectasia, abdominal (ICD-10 - I77.811) repeat u/s in 202711/28/2024 Other seasonal allergic rhinitis (ICD-10 - J30.2) stable 11/28/2024 Osteoporosis (ICD-10 - M81.0) f/u with endocrine; weight bearing exercise 04/09/2024 History of colonic polyps (ICD-10 - Z86.010) keep appt with GI 11/28/2024 History of primary hyperparathyroidism (ICD-10 - Z86.39) f/u with endocrine 04/09/2024 Type 2 diabetes mellitus without complication, without long-term current use of insulin (ICD-10 - E11.9) f/u with endocrine 04/09/2024 Hyperlipidemia, unspecified hyperlipidemia type (ICD-10 - E78.5) low fat/cholesterol diet reviewed 11/28/2024 AFRICA (obstructive sle ep apnea) (ICD-10 - G47.33) f/u with Dr Orta 04/09/2024 Hemosiderin pigmentation of skin (ICD-10 - L81.8) f/u with vascular 11/28/2024 Venous insufficiency (ICD-10 - I87.2) better 11/28/2024 Subclinical hypothyroidism (ICD-10 - E03.8) f/u with endocrine 04/09/2024 Ground glass opacity present on imaging of lung (ICD-10 - R91.8) f/u with Dr Orta 04/09/2024 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 Trejo 11/28/2024 History of skin canc er (ICD-10 - Z85.828) f/u with derm 11/28/2024 Aortic ectasia, abdominal (ICD-10 - I77.811) repeat u/s in 202704/09/2024 Nonrheumatic aortic valve insufficiency (ICD-10 - I35.1) repeat echo per cardiology 11/28/2024 History of colonic polyps (ICD-10 - Z86.010) f/u with GI 04/09/2024 Skin cancer (ICD-10 - C44.90) f/u with derm 04/09/2024 Hypercalcemia (ICD-1 0 - E83.52) f/u with endocrine 11/28/2024 Type 2 diabetes mellitus without complication, without long-term current use of insulin (ICD-10 - E11.9) f/u with endocrine 04/09/2024 Family history of hemochromatosis (ICD-10 - Z83.49) advised pt to get children tested 11/28/2024 Hyperlipidemia, unspecified hyperlipidemia type (ICD-10 - E78.5) low fat/cholesterol diet reviewed 04/09/2024 Dry eyes (ICD-10 - H04.123) f/u with ophthy 11/28/2024 Hemosiderin pigmentation of skin (ICD-10 - L81.8) f/u with vascular 04/09/2024 Stiff joint (ICD-10 - M25.60) declines x-ray of ankles; prob OA 11/28/2024 Ground glass opacity present on imaging of lung (ICD-10 - R91.8) f/u with Dr Orta 11/28/2024 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 Trejo 04/09/2024 Bruising (ICD-10 - T14.8XXA) offered heme eval-declines 11/28/2024 Nonrheumatic aortic valve insufficiency (ICD-10 - I35.1) repeat echo per cardiology 11/28/2024 Skin cancer (ICD-10 - C44.90) f/u with derm 11/28/2024 Hypercalcemia (ICD-1 0 - E83.52) f/u with endocrine 11/28/2024 Family history of hemochromatosis (ICD-10 - Z83.49) advised pt to get children tested 11/28/2024 Dry eyes (ICD-10 - H04.123) f/u with ophthy 11/28/2024 Stiff joint (ICD-10 - M25.60) declines x-ray of ankles; prob OA 11/28/2024 Bruising (ICD-10 - T14.8XXA) offered heme eval-declines 09/26/2024 Other I am seeing the patient under the supervision of the co-signing physician. The physician was available for consultation at the time of the office visit. 07/06/2024 Other 04/09/2024 Other 11/28/2024 Other BSE monthly; sa fe sex practice/sunscree n/seatbelt/helmet /condom use reviewed; see ophthy at least once q24 months/see dentist at least once q6 months; exercise 4-5x/wk and follow healthy diet; pt to check lipid, vit d, vit b12 PLAN OF TREATMENT Pending Test Test Name Order Date TSH WITH REFLEX TO FT4 (ADULTS ONLY) 25OH VITAMIN D 07/05/2022 COMPREHENSIVE METABOLIC PANEL 07/05/2022 N-TELOPEPTIDE CROSS LINKS URINE 07/06/19 23 PHOSPHORUS 07/05/2022 PTH INTACT 07/05/2022 T4 FREE 07/05/2022 URINE CULTURE 08/09/2014 ALBUMIN 08/09/2014 N-TELOPEPTIDE NTX, Urine 08/09/2014 N-Telopeptide(Collagen Crossed-Linked(NT x), Urine 02/21/2019 CBC W/OUT AUTOMATED DIFF 09/18/2021 URINALYSIS WITH MICROSCOPIC 02/08/2022 Future Test Test Name Order Date INFLUENZA A/B ANTIGEN(Nasopharyngeal Swa b) 05/03/2018 ESR 04/05/2019 CRP 04/05/2019 CBC W/OUT AUTOMATED DIFF 04/05/2019 CT CHEST WITHOUT CONTRAST 09/12/2019 Echocardiogram 03/03/2021 BASIC METABOLIC PANEL 02/25/2022 COMP. METABOLIC 07/12/2022 25 OH Vitamin D 07/12/2022 N-Telopeptide(Collagen Crossed-Linked(NT x), Urine 07/12/2022 TSH WITH REFLEX TO FT4 07/12/2022 PTH, Intact(without Calcium) 07/12/2022 GLYCOHEMOGLOBIN (HBA1C) 01/11/2023 UA/M w/rflx Culture, Routine-[id number] 08/25 Bone density (Three site Dexa) UA/M w/rflx Culture, Routine-[id number] 02/23 Next Appt Details Provider Name:STEVE Altamirano, 02/18/2025 10:15:00 AM, [address] [place] [address], [phone], Provider Name:ELIO Altamirano RO, 0 11/29/2025 09:00:00 AM, [address] [place] [address], [phone], Insurance Providers Payer Name Payer Address Payer Phone Subscriber Number Group Number Insured Name Patient Relationship to Insured Coverage Start Date Coverage End Date [employer]IC[employer] [address] [facility] AssociationBALJINDER kapoor [phone] [id number] JEY DOLL Self - patient is the insured 2 [facility] [address] [place] [address] [phone] [id number] JEY DOLL Self - patient is the insured 2 MEDICATIONS ADMINISTERED Medication Instructions Date of Administration Dosage Notes Solumedrol 06/27/2017 40 mg Vitamin B12 08/13/2013 1000 ug Vitamin B12 10/22/2013 1000 ug Vitamin B12 01/07/2014 1000 ug Vitamin B12 09/30/2014 1000 ug Vitamin B12 11/25/2014 1000 ug Vitamin B12 04/08/2015 1 cm3 Vitamin B12 05/09/2015 1 cm3 Vitamin B12 06/10/2015 1 cm3 Vitamin B12 07/15/2015 1 cm3 Vitamin B12 08/15/2015 1 cm3 Vitamin B12 09/16/2015 1.0 cm3 Vitamin B12 10/15/2015 1 cm3 Vitamin B12 11/25/2015 1 cm3 Vitamin B12 12/31/2015 1.0 cm3 Vitamin B12 01/28/2016 1 cm3 Vitamin B12 03/01/2016 1.0 cm3 Vitamin B12 04/01/2016 0.5 cm3 Vitamin B12 05/04/2016 1 cm3 Vitamin B12 06/08/2016 1 cm3 Vitamin B12 07/14/2016 1.0 cm3 Vitamin B12 08/17/2016 1 cm3 Vitamin B12 09/28/2016 1.0 cm3 Vitamin B12 11/01/2016 1.0 cm3 Vitamin B12 12/06/2016 1.0 cm3 Vitamin B12 01/06/2017 1.0 cm3 Vitamin B12 02/07/2017 1.0 cm3 Vitamin B12 03/22/2017 1.0 cm3 Vitamin B12 04/22/2017 1.0 cm3 Vitamin B12 05/24/2017 1.0 cm3 Vitamin B12 06/24/2017 1.0 cm3 Vitamin B12 07/27/2017 1.0 cm3 Vitamin B12 08/29/2017 1.0 cm3 Vitamin B12 09/29/2017 1.0 cm3 Vitamin B12 10/31/2017 1.0 cm3 Vitamin B12 12/05/2017 0.5 cm3 Vitamin B12 01/18/2018 1.0 cm3 Vitamin B12 03/28/2018 0.5 cm3 Vitamin B12 05/03/2018 1.0 cm3 Vitamin B12 06/05/2018 1.0 cm3 Vitamin B12 07/06/2018 1.0 cm3 Vitamin B12 08/07/2018 1.0 cm3 Vitamin B12 09/06/2018 1.0 cm3 Vitamin B12 10/09/2018 1.0 cm3 Vitamin B12 11/17/2018 1.0 cm3 Vitamin B12 12/27/2018 1.0 cm3 Vitamin B12 01/26/2019 1.0 cm3 Vitamin B12 02/28/2019 1.0 cm3 Vitamin B12 04/09/2019 1.0 mL Vitamin B12 05/14/2019 1.0 mL Vitamin B12 07/02/2019 1.0 cm3 Vitamin B12 08/01/2019 1.0 cm3 Vitamin B12 10/05/2019 1.0 mL Vitamin B12 11/19/2019 1.0 mL Vitamin B12 12/25/2019 1.0 mL Vitamin B12 01/30/2020 1.0 mL Vitamin B12 03/03/2020 1.0 mL Vitamin B12 04/03/2020 1.0 mL Vitamin B12 05/08/2020 1.0 mL CYANOCOBALAMIN 07/16/2020 1.0 mL CYANOCOBALAMIN 08/18/2020 1.0 mL CYANOCOBALAMIN 09/24/2020 1.0 mL CYANOCOBALAMIN 10/28/2020 1.0 mL CYANOCOBALAMIN 12/04/2020 1.0 mL CYANOCOBALAMIN 01/06/2021 1.0 mL CYANOCOBALAMIN 02/10/2021 1.0 mL CYANOCOBALAMIN 03/30/2021 1.0 mL CYANOCOBALAMIN 05/04/2021 1.0 mL CYANOCOBALAMIN 06/05/2021 1.0 mL CYANOCOBALAMIN 07/08/2021 1.0 mL CYANOCOBALAMIN 08/26/2021 1.0 mL CYANOCOBALAMIN 09/28/2021 1.0 mL CYANOCOBALAMIN 10/30/2021 1.0 cm3 CYANOCOBALAMIN 12/02/2021 1.0 mL CYANOCOBALAMIN 01/04/2022 1.0 mL CYANOCOBALAMIN 02/03/2022 1.0 mL CYANOCOBALAMIN 03/05/2022 1.0 mL CYANOCOBALAMIN 04/05/2022 1.0 mL CYANOCOBALAMIN 05/12/2022 1.0 mL CYANOCOBALAMIN 06/16/2022 1.0 mL CYANOCOBALAMIN 07/22/2022 1.0 mL CYANOCOBALAMIN 08/23/2022 1.0 mL CYANOCOBALAMIN 09/24/2022 1.0 mL CYANOCOBALAMIN 10/27/2022 1.0 mL CYANOCOBALAMIN 11/30/2022 1.0 mL CYANOCOBALAMIN 12/31/2022 1.0 mL CYANOCOBALAMIN 02/01/2023 1.0 mL CYANOCOBALAMIN 03/24/2023 1.0 mL CYANOCOBALAMIN 05/06/2023 1.0 mL CYANOCOBALAMIN 06/03/2023 1.0 mL CYANOCOBALAMIN 07/05/2023 1.0 mL CYANOCOBALAMIN 08/05/2023 1.0 mL CYANOCOBALAMIN 09/05/2023 1.0 mL CYANOCOBALAMIN 10/05/2023 1.0 mL CYANOCOBALAMIN 11/04/2023 1 mL CYANOCOBALAMIN 12/06/2023 1.0 mL CYANOCOBALAMIN 01/10/2024 1.0 mL CYANOCOBALAMIN 02/09/2024 1.0 mL CYANOCOBALAMIN 03/13/2024 1.0 mL CYANOCOBALAMIN 04/13/2024 1.0 mL CYANOCOBALAMIN 05/15/2024 1.0 mL CYANOCOBALAMIN 06/15/2024 1.0 mL CYANOCOBALAMIN 07/16/2024 1.0 mL CYANOCOBALAMIN 08/20/2024 1.0 mL CYANOCOBALAMIN 10/16/2024 1.0 mL CYANOCOBALAMIN 11/16/2024 1.0 mL CYANOCOBALAMIN 12/18/2024 1.0 mL CYANOCOBALAMIN 01/18/2025 1.0 mL vitamin B12 injection 02/02/2012 vitamin B12 injection 03/01/2012 vitamin B12 injection 04/06/2012 vitamin B12 injection 05/04/2012 vitamin B12 injection 06/01/2012 vitamin B12 injection 06/29/2012 1.0 mL vitamin B12 injection 07/26/2012 1 cm3 vitamin B12 injection 08/25/2012 vitamin B12 injection 09/25/2012 vitamin B12 injection 10/30/2012 vitamin B12 injection 12/05/2012 vitamin B12 injection 01/09/2013 vitamin B12 injection 02/13/2013 vitamin B12 injection 03/12/2013 vitamin B12 injection 04/11/2013 vitamin B12 injection 05/11/2013 vitamin B12 injection 06/08/2013 vitamin B12 injection 07/09/2013 1 mL vitamin B12 injection 09/13/2013 1000 ug vitamin B12 injection 11/26/2013 1000 ug vitamin B12 injection 02/07/2014 1000 ug vitamin B12 injection 03/12/2014 1000 ug vitamin B12 injection 04/11/2014 1000 ug vitamin B12 injection 05/13/2014 1000 ug vitamin B12 injection 06/20/2014 1000 ug vitamin B12 injection 07/23/2014 1000 ug vitamin B12 injection 08/30/2014 1000 ug vitamin B12 injection 01/06/2015 1000 ug vitamin B12 injection 02/05/2015 1000 ug vitamin B12 injection 03/07/2015 1000 ug MEDICAL (GENERAL) HISTORY Medical History History ICD Code allergies h/o pneumonia right chest 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 Fosamax -not regularly for a yr. Actonel 01/2005-03/04. Actonel restart 08/04-stop 08/07 EGD 10/26 - [facility]. 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 Si amanuel blackwells. 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 acquired pneumonia R lung, acute resp failure w/hypoxia 08/2024
--- OUTSIDE RECORDS SUMMARY | 2025-01-29 10:22 | XMS_ITS | Encounter Summary ---
Author Organization [facility], Address [address] [address] Phone Care Team Providers Care Emergency Medicine Physician Name Role Phone Calin Pearson MD Primary Care Provider [phone] Encounter Details Date Type Department Care Team (Late st Contact Info) Description 03/25/2022 Documentation Only [facility], [address] [place] [address] Nando Arizmendi MD [address] [place] [phone] Social History Tobacco Use Types Packs/Day Years [...] filedocumented in this encounter Care Teams Emergency Medicine Physician Relationship Specialty Start Date End Date Calin Pearson MD [address] PCP - General Internal Medicine 01/20/22 documented as of this encounter
--- OUTSIDE RECORDS SUMMARY | 2025-01-29 10:22 | XMS_ITS | Encounter Summary ---
Author Organization [facility], Address [address] [address] Phone Care Team Providers Care Finance Teacher Name Role Phone Calin Pearson MD Primary Care Provider [phone] Encounter Details Date Type Department Care Team (Late st Contact Info) Description 03/25/2022 Documentation Only [facility], [address] [place] [address] Nando Arizmendi MD [address] [place] [phone] Social History Tobacco Use Types Packs/Day Years [...] on filedocumented in this encounter Care Teams Finance Teacher Relationship Specialty Start Date End Date Calin Pearson MD [address] PCP - General Internal Medicine 01/20/22 documented as of this encounter
--- OUTSIDE RECORDS SUMMARY | 2025-01-29 10:22 | XMS_ITS | Encounter Summary ---
Author Organization [facility] Address [address] [place] [address] [place] [address] Phone Care Team Providers Care Milk Receiver Tank Truck Name Role Phone Calin Pearson MD Primary Care Provider [phone] Calin Pearson MD Unavailable Justin Vazquez RN Unavailable Eden Das RN Unavailable [email or web address] .[facility] Kayy Aceves RN Unavailable NIMA PRICE@[facility] Sierra Glasgow RN Unavailable Kristen@[email or web address] Zulema Carbajal RN Unavailable [email or web address] Encounter Details Date Type Department Care Team (Late st Contact Info) Description 10/24/2024 Ancillary Orders Outside Imaging Andressa James MD, PhD [address] [place] [phone] Mikala@[email or web address] Social History Tobacco Use Types Packs/Day Years Used Date Smoking Tobacco: Former Cigarettes 2 10 964 - 1973 Smokeless Tobacco: Never Alcohol [...] with a working camera? Not on file Intimate Partner Violence Answer Date R ecorded Are you denied basic needs s uch as food, clothing, or medical care? No 10/24/2024 In the past 12 months have y ou been in a relationship with a person who hurts, threatens, or tries to control you? No 10/24/2024 Are you denied basic needs s uch as food, clothing, or medical care? No 10/24/2024 In the past 12 months have y ou been in a relationship with a person who hurts, threatens, or tries to control you? No 10/24/2024 Comments Unknown Sex and Gender Information Value Date Recorded Sex Assigned at Female 09/18/2024 10:59 AM EDT Legal Sex Female 10:51 AM EDT Gender Identity Female 09/18/2024 10:59 AM EDT Sexual Orientation Straight 09/18/2024 10 :59 AM EDT documented as of this encounter Plan of Treatment Upcoming Encounters Date Type Department Care Team (Late st Contact Info) Description 01/23/2025 Procedure Pass [facility], [facility] [address] [address] 01/23/2025 Procedure Pass [facility] [address] [facility] [address] [place] [address] 01/23/2025 Procedure Pass [facility] [address] [place] [address] 02/06/2025 10:10 AM EDT Blood Draw Laboratory Services, [facility] at [address] [address] Andressa James MD, PhD [address] [place] [phone] Mikala@[facility] 02/06/2025 11:00 AM EDT Office Visit [facility], [facility] at [address] [address] Andressa James MD, PhD [address] [place] [phone] Mikala@[facility] 02/06/2025 12:00 PM EDT Infusion [facility], [facility] at [address] [address] Andressa James MD, PhD [address] [place] [phone] Mikala@[facility] Yuli Mcdonnell RN [address] [place] [address] [email or web address] 02/13/2025 1:50 PM EDT Blood Draw Laboratory Services, [facility] at [address] [address] Andressa James MD, PhD [address] [place] [phone] Mikala@[facility] 02/13/2025 2:30 PM EDT Office Visit [facility], [facility] at [address] [address] Andressa James MD, PhD [address] [place] [phone] Mikala@[facility] 02/13/2025 3:30 PM EDT Infusion [facility], [facility] at [address] [address] Andressa James MD, PhD [address] [place] [phone] Mikala@[facility] Michelle Argueta, RN [address] [place] [phone] [email or web address] 02/26/2025 9:55 AM EST Appointment [facility], MRI [address] [address] Andressa James MD, PhD [address] [place] [phone] Mikala@[facility] 02/26/2025 1:30 PM EST Appointment [facility] [address] [facility] [address] [place] [address] Andressa James MD, PhD [address] [place] [phone] Mikala@[facility] 02/27/2025 1:10 PM EST Blood Draw Laboratory Services, [facility] at [address] [address] Andressa James MD, PhD [address] [place] [address] Mikala@[facility] 02/27/2025 2:00 PM EST Office Visit [facility], [facility] at [address] [address] Andressa James MD, PhD [address] [place] [phone] Mikala@[facility] 02/27/2025 3:00 PM EST Infusion [facility], [facility] at [address] [address] Andressa James MD, PhD [address] [place] [phone] Mikala@[facility] Lucero Palmer, RN [address] [place] [address] Luis Alberto @[facility] documented as of this encounter Results * CT Chest Outside (No Interpretation) (10/19/2024 12:00 AM EDT) Other Narrative [facility] - 10/24/2024 7:36 AM EDT This study is for PACS storage only and not for interpretation. us Andressa James MD, PhD IMG OUTSIDE IMAGING W/OUT INT ERPRETATION Final Result [facility] documented in this encounter Visit Diagnoses Not on filedocumented in this encounter Care Teams Milk Receiver Tank Truck Relationship Specialty Start Date End Date Calin Pearson MD [address] [place] [address] [email or web address] PCP - General Internal Medicine 07/22/22 Calin Pearson MD [address] [address] [email or web address] Referring Physician Internal Medicine 09/18/24 Justin Vazquez RN [address] [place] [address] [email or web address] Primary Infusion Nurse 10/04/24 12/04/24 Eden Das RN [address] [place] [address] [email or web address] Primary Infusion Nurse 12/05/24 Kayy Aceves RN [address] [place] [address] SAMMIE@[email or web address] Associate Infusion Nurse 12/05/24 Sierra Glasgow, SHAY [address] [place] [address] Kristen@[email or web address] Associate Infusion Nurse 12/26/24 12/26/24 Zulema Carbajal RN [address] [place] [address] [email or web address] Associate Infusion Nurse 11/14/24 documented as of this encounter Additional Source Comments The information contained in this document represents components of the legal health record. It is not the complete legal health record.[facility]
--- OUTSIDE RECORDS SUMMARY | 2025-01-29 10:23 | XMS_ITS | Encounter Summary ---
Author Organization [facility] Address [address] [place] [address] [place] [address] Phone Care Team Providers Care Driveway Sealer Name Role Phone Calin Pearson MD Primary Care Provider [phone] Calin Pearson MD Unavailable Justin Vazquez RN Unavailable [phone] Eden Das RN Unavailable [email or web address] .[facility] Kayy Aceves RN Unavailable NIMA PRICE@[email or web address] Sierra Glasgow RN Unavailable Kristen@[facility] Zulema Carbajal RN Unavailable [email or web address] Encounter Details Date Type Department Care Team (Late st Contact Info) Description 11/21/2024 [facility] MRI [address] [facility] [address] [place] [address] Social History Tobacco Use Types Packs/Day Years [...] st Contact Info) Description 01/23/2025 Procedure Pass [facility], [facility] [address] [address] 01/23/2025 Procedure Pass [facility] [address] [facility] [address] [place] [address] 01/23/2025 Procedure Pass [facility] [address] [facility] [address] [place] [address] 02/06/2025 10:10 AM EDT Blood Draw Laboratory Services, [facility] at [address] [address] Andressa James MD, PhD [address] [place] [phone] Mikala@[facility] 02/06/2025 11:00 AM EDT Office Visit [facility], [facility] at [address] [address] Andressa James MD, PhD [address] [place] [phone] Mikala@[facility] 02/06/2025 12:00 PM EDT Infusion In[facility] South, [facility] at [address] [address] Andressa James MD, PhD [address] [place] [phone] Mikala@[facility] Yuli Mcdonnell RN [address] [place] [address] VELVET@[facility] 02/13/2025 1:50 PM EDT Blood Draw Laboratory Services, [facility] at [address] [address] Andressa James MD, PhD [address] [place] [phone] Mikala@[facility] 02/13/2025 2:30 PM EDT Office Visit [facility], [facility] at [address] [address] Andressa James MD, PhD [address] [place] [phone] Mikala@[facility] 02/13/2025 3:30 PM EDT Infusion [facility], [facility] at [address] [address] Andressa James MD, PhD [address] [place] [phone] Mikala@[facility] Michelle Argueta, RN [address] [place] [address] [email or web address] 02/26/2025 9:55 AM EST Appointment [facility], [facility] [address] [address] Andressa James MD, PhD [address] [place] [phone] Mikala@[facility] 02/26/2025 1:30 PM EST Appointment [facility] [address] [facility] [address] [place] [address] Andressa James MD, PhD [address] [place] [phone] Mikala@[facility] 02/27/2025 1:10 PM EST Blood Draw Laboratory Services, [facility] at [address] [address] Andressa James MD, PhD [address] [place] [address] Mikala@[facility] 02/27/2025 2:00 PM EST Office Visit [facility], [facility] at [address] [address] Andressa James MD, PhD [address] [place] [address] Mikala@[facility] 02/27/2025 3:00 PM EST Infusion [facility], [facility] at [address] [address] Andressa James MD, PhD [address] [place] [address] Mikala@[facility] Lucero Palmer, SHAY [address] [place] [phone] Luis Alberto @[facility] documented as of this encounter Visit Diagnoses Not on filedocumented in this encounter Care Teams Driveway Sealer Relationship Specialty Start Date End Date Calin Pearson MD [address] [place] [phone] [email or web address] PCP - General Internal Medicine 07/22/22 Calin Pearson MD 701 [facility] 100 [place] [address] [email or web address] Referring Physician Internal Medicine 09/18/24 Justin Vazquez, RN [address] [place] [address] Cale@[email or web address] Primary Infusion Nurse 10/04/24 12/04/24 Eden Das, SHAY [address] [place] [address] JUDITH@[email or web address] Primary Infusion Nurse 12/05/24 Kayy Aceves RN [address] [place] [address] SAMMIE@[email or web address] Associate Infusion Nurse 12/05/24 Sierra Glasgow RN [address] [place] [address] Kristen@[email or web address] Associate Infusion Nurse 12/26/24 12/26/24 Zulema Carbajal RN [address] [place] [address] Shireen@[email or web address] Associate Infusion Nurse 11/14/24 documented as of this encounter Additional Source Comments The information contained in this document represents components of the legal health record. It is not the complete legal health record.[facility]
--- OUTSIDE RECORDS SUMMARY | 2025-01-29 10:23 | XMS_ITS ---
Author Organization [facility] Address [address] [place] [address] [place] [address] Phone Care Team Providers Care Fish Trapper Name Role Phone Calin Pearson MD Primary Care Provider [phone] Calin Pearson MD Unavailable Eden Das RN Unavailable JUDITH@[email or web address] .[facility] Kayy Aceves RN Unavailable NIMA PRICE@[email or web address] Zulema Carbajal RN Unavailable [email or web address] Active Problems Patient Care Coordination No te Formatting of this note migh t be different from the original. 01/23/25- Patient tolerating [id number] steristrips and dressing with paper tape for port dressing. Please continue to use. Thank you Problem Noted Date Diagnosed Date Cholangiocarcinoma 10/03/2024 Age-related osteoporosis wit martha current pathological fracture 01/22/2023 Assessment & Plan (01/18/2025 1:35 PM EDT): Last DEXA from 01/03/2025 reviewed and compared to DEXA from 12/2023. Lumbar and hip stable with T-score -2.2 and -2.5 respectively., distal forearm is down by 5% with T-score -3.3. Patient has been on ibandronate since 01/2022, she stopped it in 08/2024 when was diagnosed with pneumonia and intrahepatic cholangiocarcinoma. She is getting [facility] and reports response to chemo therapy with CEA and CA 19-9 trending down. She stopped her calcium and vitamin D supplement in 08/2024 as well. -Resume ibandronate. If GI side effects, would switch over to Reclast infusion -Will likely need to restart her calcium supplement since her dietary calcium intake remains low -Recent 25-OHD was low normal off of vitamin D supplement. 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 Was treated with Fosamax for 2 to 3 years in the early s, stopped because caused some cramping in her legs. Was on Actonel for few years, discontinued in 07/2014. She had a left wrist fracture few years ago and bilateral fifth toe fracture. After her last DEXA in 12/2021 we decided to resume bisphosphonate treatment with ibandronate once a month what she started on 01/24/2022 and taking it regularly without side effects. Her calcium and vitamin D intake is optimal. She is not doing regular weightbearing exercises. No recent falls. Plan to continue ibandronate monthly and encouraged to start some weightbearing exercises preferably for 30 minutes most days. Repeat D[facility] after [facility]30/2023 at [facility]. Discussed the importance of adequate calcium and vitamin D intake as well as regular weightbearing exercises and fall prevention. Vitamin D deficiency, unspecified 01/22/2023 Assessment & Plan (01/18/2025 1:35 PM EDT): 25 OHD low normal since off of D supplement since 08/2024. -Restart 2000 IU D3 daily Assessment & Plan (01/22/2023 7:05 PM EDT): 25 OHD level was normal in 06/2022 while taking 3000 IU D3 daily from her supplements. We will continue current dose. High serum thyroid stimulating hormone (TSH) Assessment & Plan (01/18/2025 1:37 PM EDT): TSH has been running slightly elevated with normal thyroid hormone level for years but it remained below 10. Last TSH high normal at 4.06 with normal free T4 in 12/2024 without treatment. -Continue to monitor TFTs and add levothyroxine if TSH over 10 or hypothyroid symptoms with TSH 4.5-10 Assessment & Plan (01/22/2023 7:10 PM EDT): TSH has been running slightly elevated with normal thyroid hormone level for years but it remained below 10. Last TSH on 07/05/2022 was 8.66 with a free T4 of 1.42. She is clinically euthyroid, no treatment is suggested unless TSH gets over 10. We discussed basic thyroid physiology, meaning of TFTs and symptoms of hypo and hyperthyroidism. Patient to call if concerned. Otherwise would repeat TSH at least yearly. Type 2 diabetes mellitus wit hout complication, without long-term current use of insulin 01/22/2023 Assessment & Plan (01/22/2023 7:10 PM EDT): Long history of prediabetes progressed to diabetes with A1c 6.6 in 09/2022. Followed by PCP. Patient was interested in formal diabetes education, especially meal planning. Offered to see our conservation educator in our office. She would like to make that appointment History of parathyroidectomy 01/22/2023 Overview (01/16/2024): 07/30/2009 1parathyroid removed Assessment & Plan (01/18/2025 1:38 PM EDT): Patient had 1 parathyroid adenoma removed [place] 07[place]30/2009 [place] [facility]. The osteoporosis was her surgical indication. No history of kidney stones. Her serum calcium and PTH level remain normal. Assessment & Plan (01/22/2023 7:12 PM EDT): Patient had 1 parathyroid adenoma removed on 07/30/2009 at [facility]. The osteoporosis was her surgical indication. No history of kidney stones. Her serum calcium and PTH level remain normal last tested on 11/30/2022. Continue to monitor labs yearly Current Treatment and Therapy Plans ACCESS AND FLUSH??(DFCI)* Plan Start Date:12/05/2024 Linked Problems Cholangiocarcinoma Treatment Medications No medications scheduled. GEMCITABINE/CISPLATIN/DURVALUMAB* Plan Start Date:10/24/2024 Plan Provider:Andressa James MD, PhD Linked Problems Cholangiocarcinoma Treatment Medications Current Day (Day 1 , Cycle 6 - Planned for 02/06/2025) Next Day (Day 8, Cycle 6 - Planned for 02/13/2025) CARBOplatin (PARAPLATIN)CARBOplatin (PARAPLATIN) IVPB (by AUC) 270 mLdurvalumab (IMFINZI)durvalumab (IMFINZI) IVPB Baggemcitabine (GEMZAR) IVPB CARBOplatin (PARAPLATIN) 315.2 mg in D5W 301.52 mL IVPBdurvalumab (IMFINZI) 1,500 mg in sodium chloride 0.9% 140 mL IVPBgemcitabine (GEMZAR) 1,590 mg in sodium chloride 0.9% 311.82 mL IVPB gemcitabine (GEMZAR) 1,590 mg in sodium chloride 0.9% 311.82 mL IVPB HYDRATION & SUPPORTIVE CARE* Plan Start Date:10/03/2024 Plan Provider:Andressa James MD, PhD Linked Problems Cholangiocarcinoma Treatment Medications No medications scheduled. Past Treatment and Therapy Plans No past plan information found.
--- OUTSIDE RECORDS SUMMARY | 2025-01-29 10:23 | XMS_ITS | Encounter Summary ---
Author Organization [facility] Address [address] [place] [address] Care Team Providers Care Transportation Specialist Name Role Phone Unavailable Primary Care Provider Unavailabl e Encounter Details Date Type Department Care Team (Late st Contact Info) Description 11/15/2024 Patient Outreach [facility] 5th Floor [address] [place] [address] Sherrie Rosa RN Social History Tobacco Use Types Packs/Day Years Used Date Smoking Tobacco: Never Assessed Comments Unknown Sex and Gender Information Value Date Recorded Sex Assigned at Not on file Legal Sex Female 3:21 PM EDT Gender Identity Female 11/15/2024 6:41 AM EDT Sexual Orientation Straight 11/15/2024 6: 41 AM EDT documented as of this encounter Plan of Treatment Not on file documented as of this encounter Visit Diagnoses Not on filedocumented in this encounter
--- OUTSIDE RECORDS SUMMARY | 2025-01-29 10:23 | XMS_ITS | Clinical Summary ---
Author Organization [facility] Address [address] [place] [address] Care Team Providers Care Script Artist Name Role Phone Unavailable Primary Care Provider Unavailabl e Allergies Active Allergy Reactions Criticality Noted Date Comments Alendronate Muscle cramps 03/22/2022 Azithromycin Muscle cramps 11/15/2024 Doxycycline Neuropathy 03/22/2022 Epinephrine Palpitations Low 06/14/2022 Erythromycin Muscle cramps,Nausea And Vomiting Low 03/22/2022 Other Reaction(s): Cramps, vomiting Other reaction(s): cramps, vomiting Other reaction(s): cramps, vomiting Moxifloxacin Unknown 11/15/2024 Ofloxacin Unknown 03/22/2022 Penicillins Rash,Swelling High 03/22/2022 Other reaction(s): swelling Active Problems Problem Noted Date Diagnosed Date Cholangiocarcinoma 10/03/2024 Age-related osteoporosis wit hout current pathological fracture 01/22/2023 Type 2 diabetes mellitus wit hout complication, without long-term current use of insulin 01/22/2023 Asthma 06/16/2022 Hypercholesterolemia 06/16/2022 Hypertension 03/22/2022 Encounters Date Type Department Care Team Description 11/15/2024 2:00 PM EDT Office Visit [facility] 5th Floor [address], [place] [id number] Subhash Randolph MD Cholangiocarcinoma (HCC) 11/15/2024 Lab Requisition [facility] [address] [place] [address] Subhash Randolph MD 11/15/2024 Lab Requisition [facility] [address] [place] [address] Subhash Randolph MD 11/15/2024 Patient Outreach [facility] 5th Floor [address] [place] [address] Sherrie Rosa RN 11/09/2024 Transcribe Orders [address] [place] [address] Joselyn Mcdonald MA Cholangiocarcinoma (HCC) (Primary Dx) from Last 3 Months Social History Tobacco Use Types Packs/Day Years Used Date Smoking Tobacco: Never Assessed Comments Unknown Sex and Gender Information Value Date Recorded Sex Assigned at Not on file Legal Sex Female 3:21 PM EDT Gender Identity Female 11/15/2024 6:41 AM EDT Sexual Orientation Straight 11/15/2024 6: 41 AM EDT Last Filed Vital Signs Vital Sign Reading Time Taken Comments Blood Pressure 112/63 11/15/2024 1:41 PM EDT Pulse 82 11/15/2024 1:41 PM EDT Temperature 36.5 C (97.7 F) 11/15/2024 1:41 PM EDT Respiratory Rate 16 11/15/2024 1:41 PM EDT Oxygen Saturation 94% 11/15/2024 1:41 PM EDT Inhaled Oxygen Concentration - - Weight 59.9 kg (132 lb) 11/15/2024 1:41 PM EDT Height 157.5 cm (5' 2 ) 11/15/2024 1:41 PM EDT Body Mass Index 24.14 11/15/2024 1:41 PM EDT Plan of Treatment Health Maintenance Due Date Last Done Comments Hemoglobin A1C 1942 Medicare AWV 1943 Ophthalmology Exam 1952 Urine Microalbumin 1952 Osteoporosis Screening 1992 Alcohol/Substance Use Screening 04/25/2024 Depression Screening and Follow-Up 04/25/2024 Health Care Proxy Review 04/25/2024 Social Drivers of Health Annual Screening 04/25/2024 COVID-19 Vaccine (5 - Moderna risk season) 2024 02/02/2024, 02/17/2022, 08/14/2021, Additional history exists Influenza Vaccine (#1) 2024 , 02/01/2023, 03/03/2022, Additional history exists Basic Metabolic Panel 11/14/2025 11/14/2024 , 10/24/2024, 10/24/2024, Additional history exists DTaP,Tdap,and Td Vaccines (2 - Td or Tdap) 10/15/2033 10/16/2023 Zoster Vaccines Completed 01/02/2019, 08/31/2018 Pneumococcal Vaccine: 50+ Years Completed 10/10/2023 RSV Vaccine (60+ years old and patients) Completed 01/11/2024, 01/11/2024 Hepatitis B Vaccines Aged Out No long er eligible based on patient's age to complete this topic Procedures * Due to [place] [employer] law, this organization might not be sharing negative HIV tests. Procedure Name Priority Date/Time Associated Diagnosis Comments TISSUE EXAM Routine 11/15/2024 7:11 PM EDT from Last 3 Months Results * Due to [place] [employer] law, this organization might not be sharing negative HIV tests. * Tissue Exam (11/15/2024 7:11 PM EDT) Correction History This is a revised report as of 11/26/24 which supersedes the prior report from 11/23/2024. This report is being revised to correct typographic error and add additional test results. Dr. Subhash Randolph was notified of the change on 11/26/2024 at 10:08 AM by Bethany Mathews MD via security email. [place] MANUAL 1:52 PM EDT [facility] [employer] [facility] Final Diagnosis Review of Outside Slides Received from [facility] Labeled [id number] and [id number] Procedure Date 10/22/2024: Liver, Right Lobe Lesion, Fine Needle Biopsy: - Malignant carcinoma, favor adenocarcinoma, see note. Note: Immunostains done at outside hospital showed that tumor cells are positive for CK 7 and CK20 (focally), negative for CDX2 and PAX8. Additional immunostains done at [facility] reveals that tumor cells are also positive for HNF-1B and negative for Arginase 1 and HSA. These results support the diagnosis and are consistent with pancreatobiliary tract origin. [facility] MANUAL 5 1:52 PM EDT [facility] Amendment electronically signed by Bethany Mathews MD on 11/28/2024 at 1352 EDT at 1506 EDT Clinical History Intrahepatic cholangiocarcinoma [facility] MANUAL 5 1:52 PM EDT [facility] Gross Consult Client Facility: [facility] Slide Identification: [id number] Number of Glass Slides Received: 8 Number of Blocks Received: 0 Client Pathologist: Roberto Draper MD Accompanying Report Received: yes [facility] MANUAL 5 1:52 PM EDT [facility] ANAT[facility]OLOGY [facility] Best Block for Ancillary Studies N/A [facility] MANUAL 5 1:52 PM EDT [facility] Embedded Images [facility] MANUAL 5 1:52 PM EDT [facility] Disclaimer Some of these tests were developed and their performance characteristics determined by the Immunoperoxidase[facility] Laboratory of [facility]. They have not been cleared or approved by the U.S. Food and Drug Administration. The FDA has determined that such clearance or approval is not necessary. This test is used for clinical purposes. It should not be regarded as investigational or for research. This laboratory is certified under the Clinical Laboratory Improvement Amendments of 1988 (CLIA-88) as qualified to perform high complexity clinical laboratory testing. [facility] MANUAL 5 1:52 PM EDT [facility] Resulting Agency Case was signed out at [facility], Department of Pathology, [employer] 3 CLIA [id number] [facility] MANUAL 1:52 PM EDT [employer] [facility] Report Header Surgical Pathology Report Case: [id number] Authorizing Provider: Subhash Randolph MD Collected: 11/15/20241910 Ordering Location: [facility] Received: 11/15/20241911 [place] [facility] Pathologist: Bethany Mathews MD Specimen: Liver, Lobe Right, Liver, right lobe lesion 1:52 PM EDT [employer] [facility] Tissue Structure of right lobe of liver / Unknown 11/15/2024 7:11 PM EDT 11/15/2024 7:12 PM EDT us Subhash Randolph MD LAB PATHOLOGY/CYTOLOGY ORDERA BLES Edited Result - Final [facility] [employer] [facility] [address] [place] [address], from Last 3 Months Insurance MEDICARE [facility]
--- OUTSIDE RECORDS SUMMARY | 2025-01-29 10:23 | XMS_ITS | Clinical Summary ---
Author Organization [facility] Address [address] [place] [phone] Phone Care Team Providers Care Customs Patrol Officer Name Role Phone Calin Pearson MD Primary Care Provider [phone] Calin Pearson MD Unavailable Eden Das RN Unavailable [email or web address] Kayy Aceves RN Unavailable [email or web address] Zulema Carbajal RN Unavailable [email or web address] Allergies Active Allergy Reactions Criticality Noted Date Comments Alendronate 03/22/2022 Doxycycline 03/22/2022 Epinephrine Palpitations Low 10/21/2023 Erythromycin Cramps,Nausea and/or Vomiting Low 03/22/2022 Other reaction(s): cramps, vomiting Ofloxacin 03/22/2022 Penicillins Rash,Swelling Low 03/22/2022 Other reaction(s): swelling Terazosin 03/22/2022 Medications triamcinolone acetonide 0.1 % cream 05/08/19 23 Active mometasone-fo rmoterol (DULERA) 200-5 mcg/actuation HFAA Inhale 2 puffs into the lungs daily with breakfast. 01/16/20 22 Active amLODIPine (NORVASC) 5 MG tablet Take 5 mg by mouth. 03/10/20 22 Active prochlorperaz ine (COMPAZINE) 10 MG tabletIndicat ions:Cholangi ocarcinoma Take 1 tablet (10 mg total) by mouth every 6 (six) hours as needed (nausea). 60 tablet 10/23/19 25 Active ondansetron (ZOFRAN) 8 MG tabletIndicat ions:Cholangi ocarcinoma Take 1 tablet (8 mg total) by mouth every 8 (eight) hours as needed for nausea. 30 tablet 10/23/19 25 Active loperamide (IMODIUM) 2 mg capsuleIndica tions:Cholang iocarcinoma Take 1 capsule (2 mg total) by mouth 4 (four) times a day as needed for diarrhea. 60 capsule 10/23/19 25 Active Additional Information Patient not taking.Reported on 01/15/2025 acetaminophen (TYLENOL) 160 mg/5 mL solution Take 10.2 mL (325 mg total) by mouth every 4 (four) hours as needed for pain (specific location in comments) (left arm pain). 325 mL 10/24/19 25 Active Additional Information Patient not taking.Reported on 01/15/2025 magnesium gluconate (MAGONATE) 500 mg (27 mg elemental) Tab Take 1 tablet (500 mg total) by mouth daily. 90 tablet 12/13/19 25 Active Additional Information Patient not taking.Reported on 01/15/2025 losartan (COZAAR) 25 MG tablet Take 25 mg by mouth daily. 12/21/19 25 Active furosemide (LASIX) 20 MG tablet Take 20 mg by mouth daily. 09/21/19 25 Active ibandronate (BONIVA) 150 mg tablet Take 1 tablet (150 mg total) by mouth every 30 (thirty) days. Take in AM with glass of water prior to food, don't lie down for 30 minutes. 3 tablet 3 01/16/20 25 Active potassium chloride (K-TAB) 20 mEq TbER ER tablet Take 1 tablet (20 mEq total) by mouth daily. 60 tablet 01/24/20 25 Active apixaban (ELIQUIS) 5 mg tablet Take 1 tablet (5 mg total) by mouth 2 (two) times a day. 60 tablet 1 11/15/19 25 025 Discontinued lidocaine-harrison locaine (EMLA) cream Apply topically once for 1 dose. 30 g 2 01/03/20 25 025 ELIQUIS 5 mg tablet TAKE 1 TABLET BY MOUTH TWICE A DAY 60 tablet 1 01/12/20 25 025 Discontinued(No longer taking) potassium chloride (K-TAB) 20 mEq TbER ER tablet Take 1 tablet (20 mEq total) by mouth daily. 10 tablet 01/17/20 25 025 Discontinued(Re order) Active Problems Patient Care Coordination No te Formatting of this note migh t be different from the original. 01/23/25- Patient tolerating [id number] steristrips and dressing with paper tape for port dressing. Please continue to use. 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 She is getting chemotherapy through [facility] and reports response to chemo therapy with [...] most days. Repeat DEXA after 12/30/2023 at [facility]. Discussed the importance [...] especially meal planning. Offered to see our music educator in our office. She would like to make that appointment History of parathyroidectomy 01/22/2023 Overview (01/16/2024): 07/30/2009 1parathyroid removed Assessment & Plan (01/18/2025 1:38 PM EDT): Patient had 1 parathyroid adenoma removed on 07/30/2009 at [facility]. The osteoporosis was her surgical indication. No history of kidney stones. Her serum calcium and PTH level remain normal. Assessment & Plan (01/22/2023 7:12 PM EDT): Patient had 1 parathyroid adenoma removed on 07/30/2009 at [facility]. The osteoporosis was her surgical indication. No history of kidney stones. Her serum calcium and PTH level remain normal last tested on 11/30/2022. Continue to monitor labs yearly Encounters Date Type Department Care Team Description 01/23/2025 3:30 PM EDT Infusion Infusion Therapy Services [facility] at [address] [address] Andressa James MD, PhD Zulema Carbajal, SHAY Cholangiocarcinoma (Primary Dx) 01/23/2025 2:30 PM EDT Office Visit [facility], [facility] at [address] [address] Andressa James MD, PhD Cholangiocarcinoma (Primary Dx) 01/16/2025 3:00 PM EDT Infusion Infusion Therapy Services [facility] at [address] [address] Andressa James MD, PhD Anita Oh, SHAY Cholangiocarcinoma (Primary Dx) 01/16/2025 2:00 PM EDT Office Visit [facility], [facility] at [address] [address] Andressa James MD, PhD Cholangiocarcinoma (Primary Dx) 01/15/2025 9:40 AM EDT Telemedicine [facility] Endocrinology [address] [place] [address] [place] [address] Shanell Barry MD Age-related osteoporosis without current pathological fracture (Primary Dx); Vitamin D deficiency, unspecified; High serum thyroid stimulating hormone (TSH); History of parathyroidectomy 01/15/2025 Orders Only [facility] [address] [place] [address] [place] [address] ProviderGlenna MD 01/11/2025 Refill [facility], [facility] at [address] [address] Andressa James MD, PhD Medication Refill 01/03/2025 1:28 PM EDT - 01/03/2025 11:59 PM EDT Hospital Encounter [facility], [address] [address] Discharge Disposition: Home or Self Care 01/02/2025 3:00 PM EDT Infusion Infusion Therapy Services [facility] at [address] [address] Andressa James MD, PhD Zulema Carbajal RN Cholangiocarcinoma (Primary Dx) 01/02/2025 2:00 PM EDT Office Visit [facility], [address] [address] Andressa James MD, PhD Cholangiocarcinoma (Primary Dx) 01/02/2025 Orders Only [facility], [facility] [place] at [address] [address] Andressa James MD, PhD Cholangiocarcinoma (Primary Dx) 01/01/2025 Telephone [facility], [facility] [address], [address] [place] [phone] Jennifer Lyman, SHAY Care Coordination; Follow-up 01/01/2025 Orders Only [facility], [facility] at [address] [address] Andressa James MD, PhD Cholangiocarcinoma (Primary Dx) 12/27/2024 Orders Only [facility], [address], [address] [place] [phone] Sue Kim Cholangiocarcinoma (Primary Dx) 12/26/2024 3:30 PM EDT Infusion Infusion Therapy Services [facility] at [address] [address] Andressa James MD, PhD Sierra Glasgow, SHAY Cholangiocarcinoma (Primary Dx) 12/26/2024 2:30 PM EDT Office Visit [facility], [facility] at [address] [address] Andressa James MD, PhD Cholangiocarcinoma (Primary Dx) 12/26/2024 Orders Only [facility], [address], [address] [place] [phone] Sue Kim Cholangiocarcinoma (Primary Dx) 12/21/2024 Orders Only [facility], [address], [address] [place] [address] Andressa James MD, PhD Cholangiocarcinoma (Primary Dx) 12/21/2024 Orders Only [facility], [facility] [address] [facility], [address] [place] [address] Andressa James MD, PhD Cholangiocarcinoma (Primary Dx) 12/20/2024 8:00 AM EDT Infusion [facility] Imaging [facility], [facility], [id number] [address] [place] [address] Andressa James MD, PhD 12/20/2024 7:42 AM EDT - 12/20/2024 11:59 PM EDT Hospital Encounter [facility], [place] [address] [address] Andressa James MD, PhD Discharge Disposition: Home or Self Care 12/20/2024 6:33 AM EDT - 12/20/2024 7:41 AM EDT Hospital Encounter [facility], [facility] [address] [address] Andressa James MD, PhD Discharge Disposition: Home or Self Care 12/12/2024 3:00 PM EDT Infusion Infusion Therapy Services [address] [address] Andressa James MD, PhD Court Rouse, SHAY Cholangiocarcinoma (Primary Dx) 12/12/2024 2:00 PM EDT Office Visit [facility], [address] [address] Andressa James MD, PhD Cholangiocarcinoma (Primary Dx) 12/06/2024 Orders Only [facility], [address], [address] [place] [address] Andressa James MD, PhD Cholangiocarcinoma (Primary Dx) 12/05/2024 4:00 PM EDT Infusion [facility] Therapy Services [address] [address] Andressa James MD, PhD Negrita Daniels, SHAY Cholangiocarcinoma (Primary Dx) 12/05/2024 3:00 PM EDT Office Visit [facility], [address] [address] Rosanne Christopher CNP Cholangiocarcinoma (Primary Dx) 11/21/2024 4:00 PM EDT Infusion Infusion Therapy Services [facility] at [address] [address] Andressa James MD, PhD Destiny Dawson, RN Cholangiocarcinoma (Primary Dx) 11/21/2024 3:00 PM EDT Office Visit [facility], [facility] at [address] [address] Andressa James MD, PhD Cholangiocarcinoma (Primary Dx) 11/21/2024 Procedure Pass [facility], [place] [address] [address] 11/21/2024 Procedure Pass [facility], [facility] [address] [address] 11/21/2024 Orders Only [facility], [address] [address] Andressa James MD, PhD Cholangiocarcinoma (Primary Dx) 11/14/2024 1:00 PM EDT Infusion Infusion Therapy Services [facility] at [address] [address] Andressa James MD, PhD Zulema Carbajal, SHAY Cholangiocarcinoma (Primary Dx) 11/14/2024 12:00 PM EDT Office Visit [facility], [address] [address] Andressa James MD, PhD Cholangiocarcinoma (Primary Dx) 11/14/2024 Orders Only [facility], [address] [address] Andressa James MD, PhD Cholangiocarcinoma (Primary Dx) 11/12/2024 Orders Only [facility], [facility] at [address] [address] Andressa James MD, PhD Cholangiocarcinoma (Primary Dx) 11/08/2024 Orders Only [facility], [facility] [address] [facility], 10th [place] [address] Andressa James MD, PhD 11/06/2024 Orders Only [facility], [facility] [address] [facility], 10th [place] [address] Andressa James MD, PhD from Last 3 Months Immunizations Immunization Administration Dates Next Due COVID-19 (Pre-02/14) Moderna Vaccine, Bivalent 6 mo+ 02/17/2022 COVID-19 (Pre-02/14) Moderna Vaccine, mRNA, PF 0 08/14/2021,06/25/2020 Pneumococcal conjugate PCV20 10/10/2023 RSV Vaccine (bivalent) 01/11/2024 Tdap 10/16/2023 Family History Medical History Relation Comments Colon cancer Daughter Sarcoma Father Retroperitoneal liposarcoma Cardiovascular disease Maternal Grandfather Colon cancer Maternal Grandfather Aortic aneurysm Maternal Grandmother Colon cancer Mother Kidney failure Mother Cerebral aneurysm Paternal Grandfather Coronary artery disease Paternal Grandmother Relation Status Comments Daughter Alive Father Maternal Grandfather Maternal Grandmother Mother Paternal Grandfather Paternal Grandmother Social History Tobacco Use Types Packs/Day Years Used Date Smoking Tobacco: Former Cigarettes 2 10 1 4 1973 Smokeless Tobacco: Never Tobacco Cessation:Counseling Given: Not Answered Alcohol Use Standard Drinks/Week Comments Never 0 [...] your housing situation today? I have fozia frank 10/03/2024 How many times have you move [...] Orientation Straight 09/18/2024 10 :59 AM EDT Last Filed Vital Signs Vital Sign Reading Time Taken Comments Blood Pressure 114/69 01/23/2025 1:53 PM EDT Pulse 97 01/23/2025 1:53 PM EDT Temperature 36.8 C (98.2 F) 01/23/2025 1:53 PM EDT Respiratory Rate 18 01/23/2025 1:53 PM EDT Oxygen Saturation 98% 01/23/2025 1:53 PM EDT Inhaled Oxygen Concentration 58.9% 10/23/2024 6 :35 PM EDT Weight 57.6 kg (126 lb 15.8 oz) 01/23/2025 1:53 PM EDT Height 157.5 cm (5' 2.01 ) 11/14/2024 1:10 PM ED T Body Mass Index 23.22 11/14/2024 1:10 PM EDT Plan of Treatment Upcoming Encounters Date Type Department Care Team (Late st Contact Info) Description 01/23/2025 Procedure Pass [facility], [facility] [address] [address] 01/23/2025 Procedure Pass [facility] [address] [facility] [address] [place] [address] 01/23/2025 Procedure Pass [facility] [address] [facility] [address] [address] 02/06/2025 10:10 AM EDT Blood Draw Laboratory Services, [facility] at [address] [address] Andressa James MD, PhD [address] [place] [id number] [email or web address] 02/06/2025 11:00 AM EDT Office Visit [facility], [facility] at [address] [address] Andressa James MD, PhD [address] [place] [id number] [email or web address] 02/06/2025 12:00 PM EDT Infusion Infusion Therapy Services South, [facility] at [address] [address] Andressa James MD, PhD [address] [place] [phone] [email or web address] Yuli Mcdonnell RN [address] [place] [phone] [email or web address] 02/13/2025 1:50 PM EDT Blood Draw Laboratory Services, [facility] at [address] [address] Andressa James MD, PhD [address] [place] [phone] Mikala@[email or web address] 02/13/2025 2:30 PM EDT Office Visit [facility], [address] [address] Andressa James MD, PhD [address] [place] [phone] Mikala@[email or web address] 02/13/2025 3:30 PM EDT Infusion Infusion Therapy Services [facility], [facility] at [address] [address] Andressa James MD, PhD [address] [place] [phone] Mikala@[email or web address] Michelle Argueta RN [address] [place] [phone] [email or web address] 02/26/2025 9:55 AM EST Appointment [facility], [address] [address] Andressa James MD, PhD [address] [place] [phone] Mikala@[email or web address] 02/26/2025 1:30 PM EST Appointment [facility] [address] [facility] [address] [place] [address] Andressa James MD, PhD [address] [place] [phone] Mikala@[email or web address] 02/27/2025 1:10 PM EST Blood Draw Laboratory Services, [facility] at [address] [address] Andressa James MD, PhD [address] [place] [phone] Mikala@[email or web address] 02/27/2025 2:00 PM EST Office Visit [facility], [facility] at [address] [address] Andressa James MD, PhD [address] [place] [phone] Mikala@[email or web address] 02/27/2025 3:00 PM EST Infusion Infusion Therapy Services South, [facility] [place] at [address] [address] Andressa James MD, PhD [address] [place] [phone] Mikala@[email or web address] Lucero Palmer, SHAY [address] [place] [phone] Luis Alberto [email or web address] Health Maintenance Due Date Last Done Comments HEMOGLOBIN A1C 1942 DEPRESSION SCREENING 1954 LIPID PANEL 1960 HEPATITIS A VACCINES (1 of 2 - Risk 2-dose series) 1961 DIABETIC EYE EXAM 01/21/2023 INFLUENZA VACCINE (#1) 2024 , 02/01/2023, 03/03/2022, Additional history exists COVID-19 VACCINE ( season) 2025 01/17/2025, 02/02/2024, 02/17/2022, Additional history exists BLOOD PRESSURE 07/24/2025 01/23/2025 CREATININE LEVEL 01/23/2026 01/23/2025, , 01/02/2025, Additional history exists POTASSIUM LEVEL 01/23/2026 01/23/2025, 12/25, 01/02/2025, Additional history exists Adult Td,Tdap Booster 10/15/2033 10/16/2023 ZOSTER VACCINES Completed 01/02/2019, 08/31/2018 PNEUMOCOCCAL VACCINES (50+ years) Completed 10/10/2023 RSV VACCINE Completed 01/11/2024, 01/11/2024 OSTEOPOROSIS SCREENING INITIAL (ONE-TIME) Completed 01/16/2024, 01/02/2024, 12/29/2021, Additional history exists HIB VACCINES Aged Out No longer eligi ble based on patient's age to complete this topic MENINGOCOCCAL VACCINES (ACWY) Aged Out No longer eligible based on patient's age to complete this topic MENINGOCOCCAL VACCINES (B) Aged Out N o longer eligible based on patient's age to complete this topic Medical Devices Not on file Procedures Procedure Name Priority Date/Time Associated Diagnosis Comments MAGNESIUM Routine 01/23/2025 12:58 PM EDT Cholangiocarcinoma COMPREHENSIVE METABOLIC PANEL Routine 01/23/2025 12:58 PM EDT Cholangiocarcinoma HC BLOOD COUNT COMPLETE AUTO&AUTO DIFRNTL WBC Routine 01/23/2025 12:58 PM EDT Cholangiocarcinoma CA-19-9 Routine 01/16/2025 12:55 PM EDT Cholangiocarcinoma MAGNESIUM Routine 01/16/2025 12:55 PM EDT Cholangiocarcinoma COMPREHENSIVE METABOLIC PANEL Routine 01/16/2025 12:55 PM EDT Cholangiocarcinoma HC BLOOD COUNT COMPLETE AUTO&AUTO DIFRNTL WBC Routine 01/16/2025 12:55 PM EDT Cholangiocarcinoma OUTSIDE IMAGING Routine 01/15/2025 9:36 AM EDT PAIRED TUMOR/GERMLINE - TUMOR ORDER (REQUIRED) Routine 01/03/2025 1:28 PM EDT Adenocarcinoma of liver LAB ADD ON Routine 01/02/2025 2:02 PM EDT Cholangiocarcinoma MAGNESIUM Routine 01/02/2025 1:19 PM EDT CARCINOEMBRYONIC ANTIGEN (CEA) Routine 01/02/2025 1:19 PM EDT Cholangiocarcinoma COMPREHENSIVE METABOLIC PANEL Routine 01/02/2025 1:19 PM EDT Cholangiocarcinoma HC BLOOD COUNT COMPLETE AUTO&AUTO DIFRNTL WBC Routine 01/02/2025 1:19 PM EDT Cholangiocarcinoma FREE T4 Routine 12/26/2024 1:21 PM EDT Cholangiocarcinoma TSH Routine 12/26/2024 1:21 PM EDT Cholangiocarcinoma COLLAGEN TYPE 1B-TELOPEPTIDE, BLOOD Routine 12/26/2024 1:21 PM EDT Cholangiocarcinoma 25-OH VITAMIN D Routine 12/26/2024 1:21 PM EDT Cholangiocarcinoma CA-19-9 Routine 12/26/2024 1:21 PM EDT Cholangiocarcinoma MAGNESIUM Routine 12/26/2024 1:21 PM EDT Cholangiocarcinoma COMPREHENSIVE METABOLIC PANEL Routine 12/26/2024 1:21 PM EDT Cholangiocarcinoma HC BLOOD COUNT COMPLETE AUTO&AUTO DIFRNTL WBC Routine 12/26/2024 1:[address] CHEST WITHOUT CONTRAST Routine 12/20/2024 8:07 AM EDT Cholangiocarcinoma MRI ABDOMEN WITH AND WITHOUT CONTRAST Routine 12/20/2024 7:37 AM EDT Cholangiocarcinoma CA-19-9 Routine 12/12/2024 1:24 PM EDT Cholangiocarcinoma CARCINOEMBRYONIC ANTIGEN (CEA) Routine 12/12/2024 1:24 PM EDT Cholangiocarcinoma MAGNESIUM Routine 12/12/2024 1:24 PM EDT Cholangiocarcinoma HC BLOOD COUNT COMPLETE AUTO&AUTO DIFRNTL WBC Routine 12/12/2024 1:24 PM EDT Cholangiocarcinoma COMPREHENSIVE METABOLIC PANEL Routine 12/12/2024 1:24 PM EDT Cholangiocarcinoma CA-19-9 Routine 12/05/2024 2:04 PM EDT Cholangiocarcinoma MAGNESIUM Routine 12/05/2024 2:04 PM EDT Cholangiocarcinoma COMPREHENSIVE METABOLIC PANEL Routine 12/05/2024 2:04 PM EDT Cholangiocarcinoma HC BLOOD COUNT COMPLETE AUTO&AUTO DIFRNTL WBC Routine 12/05/2024 2:04 PM EDT Cholangiocarcinoma MAGNESIUM Routine 11/21/2024 2:03 PM EDT Cholangiocarcinoma COMPREHENSIVE METABOLIC PANEL Routine 11/21/2024 2:03 PM EDT Cholangiocarcinoma HC BLOOD COUNT COMPLETE AUTO&AUTO DIFRNTL WBC Routine 11/21/2024 2:03 PM EDT Cholangiocarcinoma CA-19-9 Routine 11/14/2024 11:12 AM EDT Cholangiocarcinoma MAGNESIUM Routine 11/14/2024 11:12 AM EDT Cholangiocarcinoma COMPREHENSIVE METABOLIC PANEL Routine 11/14/2024 11:12 AM EDT Cholangiocarcinoma HC BLOOD COUNT COMPLETE AUTO&AUTO DIFRNTL WBC Routine 11/14/2024 11:12 AM EDT Cholangiocarcinoma OUTSIDE LAB 11/06/2024 BD DXA MONITORING Routine 01/16/2024 9:3 3 AM EDT Age-related osteoporosis without current pathological fracture from Last 3 Months or Most Recently Relevant to Health Maintenance Results * (ABNORMAL) Comprehensive metabolic panel (01/23/2025 12:58 PM EDT) Only the most recent of8 resultswithin the time period is included. SODIUM 140 136 - 145 mmol/L [facility] POTASSIUM 3.4 3.4 - 5.1 mmol/L [facility] CHLORIDE 104 98 - 107 mmol/L [facility] CO2 23 22 - 31 mmol/L [facility] BUN 15 6 - 23 mg/dL [facility] CREATININE 0.74 0.50 - 1.20 mg/dL [facility] GLUCOSE 125(H) 70 - 100 mg/dL [facility] ALBUMIN 4.1 3.5 - 5.2 g/dL [facility] TOTAL PROTEIN 6.6 6.4 - 8.3 g/dL [facility] CALCIUM 8.7(L) 8.8 - 10.7 mg/dL [facility] ALKALINE PHOSPHATASE 92 35 - 104 U/L [facility] TOTAL BILIRUBIN 0.4 0.2 - 1.2 mg/dL [facility] AST 26 <33 U/L [facility] ALT 19 <34 U/L [facility] GLOBULIN 2.5 2.3 - 4.2 g/dL [facility] EGFR 81 >59 mL/min/1.7 3m2 [facility] Comment:Estimated glomerular filtration rate calculated using the CKD-EPI refit equation. ANION GAP 13 7 - 17 mmol/L [facility] Blood 01/23/2025 12:5 8 PM EDT 01/23/2025 1:08 PM EDT us Andressa James MD, PhD LAB BLOOD ORDERABLES Final Re sult [facility] [address] [place] [address], [facility] * (ABNORMAL) CBC and differential (01/23/2025 12:58 PM EDT) Only the most recent of8 resultswithin the time period is included. WBC 3.21(L) 4.00 - 10.00 K/uL [facility] RBC 3.37(L) 3.90 - 6.00 M/uL [facility] HGB 10.8(L) 11.5 - 16.4 g/dL [facility] HCT 30.9(L) 36.0 - 48.0 % [facility] PLT 216 150 - 450 K/uL [facility] MCV 91.7 80.0 - 100.0 fL [facility] MCH 32.0 27.0 - 32.0 pg [facility] MCHC 35.0 32.0 - 36.0 g/dL [facility] RDW 15.6(H) 11.5 - 14.5 % [facility] MPV 9.5 8.4 - 12.0 fL [facility] NRBC 0.00 0.00 /100 WBCs [facility] ABSOLUTE NRBC 0.00 0 K/uL [facility] DIFF METHOD Auto [facility] NEUTS 42.4(L) 48.0 - 76.0 % [facility] LYMPHS 42.4(H) 18.0 - 41.0 % [facility] MONOS 13.4(H) 4.0 - 11.0 % [facility] EOS 0.6 0.0 - 5.0 % [facility] BASOS 0.3 0.00 - 1.50 % [facility] % IMMATURE GRANS 0.9 0.00 - 1.00 % [facility] ABSOLUTE NEUTS 1.36(L) 1.92 - 7.60 K/uL [facility] ABSOLUTE LYMPHS 1.36 0.72 - 4.10 K/uL [facility] ABSOLUTE MONOS 0.43 0.16 - 1.10 K/uL [facility] ABSOLUTE EOS 0.02 0.00 - 0.50 K/uL [facility] ABSOLUTE BASOS 0.01 0.00 - 0.15 K/uL [facility] ABS IMMATURE GRANS 0.03 0.00 - 0.10 K/uL [facility] Blood 01/23/2025 12:5 8 PM EDT 01/23/2025 1:08 PM EDT us Andressa James MD, PhD LAB BLOOD ORDERABLES Final Re sult Performing Organization Address [facility] [place] [address], [facility] * Magnesium (01/23/2025 12:58 PM EDT) Only the most recent of8 resultswithin the time period is included. MAGNESIUM 1.9 1.7 - 2.6 mg/dL [facility] Blood 01/23/2025 12:5 8 PM EDT 01/23/2025 1:08 PM EDT us Andressa James MD, PhD LAB BLOOD ORDERABLES Final Re sult Performing Organization Address City/[facility] [place] [address], [place] [facility] * (ABNORMAL) CA-19-9 (01/16/2025 12:55 PM EDT) Only the most recent of5 resultswithin the time period is included. CA 19-9 56(H) 0 - 35 U/mL [facility] Blood 01/16/2025 12:5 5 PM EDT 01/16/2025 1:02 PM EDT Andressa James MD, PhD LAB BLOOD ORDERABLES Final Re sult Performing Organization Address [facility] Co de Phone Number [address] * Outside Imaging Report Only (01/15/2025 9:36 AM EDT) Historical Provider IMG XR CHEST Final Res ult * Lab Add On: magnesium (01/02/2025 2:02 PM EDT) [facility] TEST REQUESTED MAGNESIUM [facility] LIC# [id number] Comments (Chemistry) TEST TO BE ADDED ON TO EXISTING SPECIMEN [facility] LIC# [id number] Blood 01/02/2025 2:02 PM EDT 01/02/2025 2:03 PM EDT Andressa James MD, PhD LAB BLOOD ORDERABLES Final Re sult Performing Organization Address [facility]/ZIP Co de Phone Number [facility] LIC# [id number] [address] [place] [address] * Carcinoembryonic antigen (CEA) (01/02/2025 1:19 PM EDT) Only the most recent of2 resultswithin the time period is included. CEA 2.3 0 - 3.7 ng/mL [facility] LIC# [id number] Comment: CEA REFERENCE RANGE: NON-SMOKERS: < 3.8 ng/mL SMOKERS: < 5.0 ng/mL Blood 01/02/2025 1:19 PM EDT 01/02/2025 1:21 PM EDT us Andressa James MD, PhD LAB BLOOD ORDERABLES Final Re sult Performing Organization Address [facility] Co de Phone Number [facility] LIC# [id number] [address] [place] [address] * Collagen type 1b-telopeptide, blood (12/26/2024 1:21 PM EDT) Pathologist [facility] Collagen CTx 264 pg/mL [facility] MED/[facility] Comment: (NOTE) REFERENCE VALUE [phone] (18-29 y) 150-635 (30-39 y) 131-670 (40-49 y) [phone] (50-59 y) 171-970 (60-69 y) 152-858 (>70 y) 136-689 (Premenopausal) [phone] (Postmenopausal) Flagging is based on the age-specific reference interval and not menopausal status. Blood 12/26/2024 1:21 PM EDT 12/26/2024 1:27 PM EDT Andressa James MD, PhD LAB BLOOD ORDERABLES Final Re sult Performing Organization Address [facility] Co de Phone Number [facility] LAB MED/[address] [place] [address] * 25-OH vitamin D (12/26/2024 1:21 PM EDT) Pathologist [facility] 25 OH VIT D (TOTAL) 31 20 - 50 ng/mL [facility] LIC# [id number] Comment: <10 ng/mL Severe deficiency 10-19 ng/mL Mild to moderate deficiency 20-50 ng/ml Optimum levels 51-80 ng/mL Increased risk of hypercalciuria >80 ng/mL Toxicity possible Blood 12/26/2024 1:21 PM EDT 12/26/2024 1:27 PM EDT us Andressa James MD, PhD LAB BLOOD ORDERABLES Final Re sult Performing Organization Address [facility]/ZIP Co de Phone Number [facility] LIC# [id number] [address] [place] [address] * TSH (12/26/2024 1:21 PM EDT) TSH 4.06 0.27 - 4.20 uIU/mL [facility] LIC# [id number] Blood 12/26/2024 1:21 PM EDT 12/26/2024 1:27 PM EDT us Andressa James MD, PhD LAB BLOOD ORDERABLES Final Re sult Performing Organization Address [facility] Co de Phone Number [facility] LIC# [id number] [address] [place] [address] * Free T4 (12/26/2024 1:21 PM EDT) FREE T4 1.1 0.9 - 1.7 ng/dL [facility] LIC# [id number] Blood 12/26/2024 1:21 PM EDT 12/26/2024 1:27 PM EDT us Andressa James MD, PhD LAB BLOOD ORDERABLES Final Re sult Performing Organization Address [facility] Co de Phone Number [facility] LIC# [id number] [address] [place] [address] * CT CHEST WITHOUT CONTRAST (12/20/2024 8:07 AM EDT) Anatomical Region Laterality Modality Chest Computed Tomogra phy Other 12/20/2024 3:20 PM EDT Impressions 12/20/2024 4:16 PM EDT No definite evidence of metastatic disease in the chest. ATTESTATION: Naomie Figueroa, as teaching physician have reviewed the images, if any, for this patient's exam, and if necessary, have edited the report originally created by Robert Parra. 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 COMPARISON: CT CHEST OUTSIDE (NO INTERPRETATION) FINDINGS: Devices/Tubes/Lines: Right internal jugular vein port catheter terminating the right atrium. Lungs: Unchanged mild biapical scarring. Unchanged sub-5 mm pulmonary nodules, for example: 5 mm left lower lobe groundglass nodule (5:230), 3 mm right lower lobe nodule (5:179), and 2 mm left lower lobe nodule (5:175). Few scattered calcified granulomas. Similar linear atelectasis/scarring in the anterior right upper lobe. Similar subsegmental medial atelectasis in the right middle lobe. Scattered bilateral mucus plugging. The central airways are patent. Pleura: No pleural effusion or pneumothorax. Mediastinum: Normal heart size. Small pericardial effusion. Small amount of coronary calcifications. Atherosclerotic calcifications of the thoracic aorta. Small hiatal hernia. Lymph Nodes: Similar to mildly decreased subcentimeter mediastinal lymph nodes, likely reactive, for example 7 mm right lower paratracheal node (3:38), previously 9 mm, and 6 mm infracarinal node (3:41), previously 8 mm. Upper Abdomen: Please see concurrent MRI for abdominal findings. Chest Wall: No chest wall mass. Bones: Dense sclerotic focus in the left scapula (3:9) with no discrete soft tissue component or cortical disruption, similar since August 2024, may be benign. Degenerative changes of thoracic spine. Diffuse osseous demineralization. 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 COMPARISON: CT CHEST OUTSIDE (NO INTERPRETATION) FINDINGS: Devices/Tubes/Lines: Right internal jugular vein port catheter terminatingthe right atrium. Lungs: Unchanged mild biapical scarring. Unchanged sub-5 mm pulmonarynodules, for example: 5 mm left lower lobe groundglass nodule (5:230), 3mm right lower lobe nodule (5:179), and 2 mm left lower lobe nodule(5:175). Few scattered calcified granulomas. Similar linearatelectasis/scarring in the anterior right upper lobe. Similarsubsegmental medial atelectasis in the right middle lobe. Scatteredbilateral mucus plugging. The central airways are patent. Pleura: No pleural effusion or pneumothorax. Mediastinum: Normal heart size. Small pericardial effusion. Small amountof coronary calcifications. Atherosclerotic calcifications of the thoracicaorta. Small hiatal hernia. Lymph Nodes: Similar to mildly decreased subcentimeter mediastinal lymphnodes, likely reactive, for example 7 mm right lower paratracheal node(3:38), previously 9 mm, and 6 mm infracarinal node (3:41), previously 8mm. Upper Abdomen: Please see concurrent MRI for abdominal findings. Chest Wall: No chest wall mass. Bones: Dense sclerotic focus in the left scapula (3:9) with no discretesoft tissue component or cortical disruption, similar since August 2024, maybe benign. Degenerative changes of thoracic spine. Diffuse osseousdemineralization. IMPRESSION: No definite evidence of metastatic disease in the chest. ATTESTATION: Naomie Figueroa, as teaching physician have reviewed theimages, if any, for this patient's exam, and if necessary, have edited thereport originally created by Robert Parra. us Andressa James MD, PhD IMG CT CHEST Final Result * MRI ABDOMEN WITH AND WITHOUT CONTRAST (12/20/2024 7:37 AM EDT) Anatomical Region Laterality Modality Abdomen Magnetic Resonan ce Other 12/20/2024 9:17 AM EDT Impressions 12/20/2024 11:37 AM EDT Compared to 10/07/2024: 1. Slightly decreased size of segment 2 hepatic mass, consistent with intrahepatic cholangiocarcinoma. 2. Unchanged subcentimeter enhancing lesion with diffusion restriction in the periphery of the right hepatic lobe, indeterminate. 3. Scattered subcentimeter pancreatic cystic lesions, likely side branch IPMNs. ATTESTATION: Xavi Figueroa, as teaching physician have reviewed the images, if any, for this patient's exam, and if necessary, have edited the report originally created by Keon Hager. 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 Dynamic multiphase imaging was also performed after administration of an intravenous gadolinium contrast agent. COMPARISON: MRI ABDOMEN OUTSIDE (NO INTERPRETATION) FINDINGS: Lower Chest: See same day chest CT scan. Liver: Diffusion restricting enhancing T2 hyperintense mass in segment 2 measuring 6.0 x 4.8 x 4.0 cm (22:25, 26:46), previously 7.2 x 5.1 x 4.1 cm, with early peripheral enhancement and progressive heterogeneous central filling. The mass is slighty decreased in mediolateral dimension. Unchanged 0.7 cm T1 hypointense enhancing lesion in periphery of right hepatic lobe with restricted diffusion (20:40). Unchanged scattered hepatic cysts. Biliary: Cholelithiasis. No biliary ductal dilatation. Spleen: No splenomegaly or focal lesion. Pancreas: No ductal dilatation. Scattered subcentimeter cysts up to 0.5 cm in the body/tail (4:18). Adrenal Glands: No nodules. Kidneys/Ureters: No solid masses or hydronephrosis. Subcentimeter renal cysts. Bowel: No dilatation or wall thickening. Peritoneum/Retroperitoneum: No masses or fluid. Lymph Nodes: No lymphadenopathy. Vessels: No abdominal aortic aneurysm. Bones/Soft Tissues: No focal marrow replacing lesions. 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 Dynamic multiphaseimaging was also performed after administration of an intravenousgadolinium contrast agent. COMPARISON: MRI ABDOMEN OUTSIDE (NO INTERPRETATION) FINDINGS: Lower Chest: See same day chest CT scan. Liver: Diffusion restricting enhancing T2 hyperintense mass in segment 2measuring 6.0 x 4.8 x 4.0 cm (22:25, 26:46), previously 7.2 x 5.1 x 4.1cm, with early peripheral enhancement and progressive heterogeneouscentral filling. The mass is slighty decreased in mediolateral dimension.Unchanged 0.7 cm T1 hypointense enhancing lesion in periphery of righthepatic lobe with restricted diffusion (20:40). Unchanged scatteredhepatic cysts. Biliary: Cholelithiasis. No biliary ductal dilatation. Spleen: No splenomegaly or focal lesion. Pancreas: No ductal dilatation. Scattered subcentimeter cysts up to 0.5 cmin the body/tail (4:18). Adrenal Glands: No nodules. Kidneys/Ureters: No solid masses or hydronephrosis. Subcentimeter renalcysts. Bowel: No dilatation or wall thickening. Peritoneum/Retroperitoneum: No masses or fluid. Lymph Nodes: No lymphadenopathy. Vessels: No abdominal aortic aneurysm. Bones/Soft Tissues: No focal marrow replacing lesions. IMPRESSION: Compared to 10/07/2024: 1. Slightly decreased size of segment 2 hepatic mass, consistent withintrahepatic cholangiocarcinoma. 2. Unchanged subcentimeter enhancing lesion with diffusion restriction inthe periphery of the right hepatic lobe, indeterminate. 3. 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 ATTESTATION: [place], Xavi Acevedo, as teaching physician have reviewed theimages, if any, for this patient's exam, and if necessary, have edited thereport originally created by Keon Hager. us Andressa James MD, PhD IMG MR ABDOMEN Final Result * Outside Lab (11/06/2024) us Scanning Interface Provider LAB BLOOD ORDERABLES Final Result * DXA Monitoring (01/02/2024 4:18 PM EDT) Anatomical Region Laterality Modality Bone Density Bone Density us Shanell Barry MD IMG BD BONE DENSITY DEXA Final Result from Last 3 Months or Most Recently Relevant to Health Maintenance Insurance [employer] SUPPLEMENT MEDICARE PART A & B [employer] SUPPLEMENT MEDICARE PART A & B [employer] SUPPLEMENT MEDICARE PART A & B [employer] SUPPLEMENT MEDICARE PART A & B [facility] MEDEX SUPPLEMENT MEDICARE PART A & B [employer] MEDEX SUPPLEMENT Member Subscriber Plan / Payer (Ef fective 2007-Present) Name:Zena Urban Relation to Subscriber:Self Name:Zena Urban Payer ID:[id number] (NAIC) Type:Indemnity Address: [facility] [id number] [place] [id number] MEDICARE PART A & B Advance Directives For more information, please contact: [phone] (9AM - 5PM [facility], Tuesday-Tuesday) Documents on File Type Date Recorded Patient Judo Instructor Expl anation Healthcare Proxy 10/24/2024 4:51 PM Care Teams Customs Patrol Officer Relationship Specialty Start Date End Date Calin Pearson MD [address] [place] [address] [email or web address] PCP - General Internal Medicine 07/22/22 Calin Pearson MD [address] [place] [email or web address] Referring Physician Internal Medicine 09/18/24 Eden Das RN [address] [place] [address] [email or web address] Primary Infusion Nurse 12/05/24 Kayy Aceves RN [address] [place] [address] [email or web address] Associate Infusion Nurse 12/05/24 Zulema Carbajal RN [address] [place] [address] [email or web address] Associate Infusion Nurse 11/14/24 Additional Source Comments The information contained in this document represents components of the legal health record. It is not the complete legal health record.[facility]
--- OUTSIDE RECORDS SUMMARY | 2025-01-29 10:23 | XMS_ITS | Encounter Summary ---
Author Organization [facility] Address [address] [place] [address] Care Team Providers Care Boat Rental Clerk Name Role Phone Unavailable Primary Care Provider Unavailabl e Encounter Details Date Type Department Care Team (Late st Contact Info) Description 11/15/2024 Lab Requisition [facility] [address] [place] [address] Subhash Randolph MD [address] [place] [id number] Social History Tobacco Use Types Packs/Day Years Used Date Smoking Tobacco: Never Assessed Comments Unknown Sex and Gender Information Value Date Recorded Sex Assigned at Not on file Legal Sex Female 3:21 PM EDT Gender Identity Female 11/15/2024 6:41 AM EDT Sexual Orientation Straight 11/15/2024 6: 41 AM EDT documented as of this encounter Plan of Treatment Scheduled Orders Name Type Priority Associated Diagnoses Orde r Schedule Tissue Exam Pathology and Cytology Routine O rdered: 11/15/2024 documented as of this encounter Visit Diagnoses Not on filedocumented in this encounter
--- OUTSIDE RECORDS SUMMARY | 2025-01-29 10:23 | XMS_ITS | Encounter Summary ---
Author Organization [facility] Address [address] [place] [address] [place] [address] Phone Care Team Providers Care Solar Panel Installer Name Role Phone Calin Pearson MD Primary Care Provider [phone] Calin Pearson MD Unavailable Eden Das RN Unavailable [email or web address] .[email or web address] Kayy Aceves RN Unavailable [email or web address] Sierra Glasgow RN Unavailable [email or web address] Zulema Carbajal RN Unavailable [email or web address] Encounter Details Date Type Department Care Team (Latest Contact Info) Description 12/26/2024 Orders Only [facility], [facility] [place] [address] [facility], 10th [place] [address] Sue Kim [address] [place] [phone] jey [email or web address] Cholangiocarcinoma (Primary Dx) Social History Tobacco Use Types Packs/Day Years Used Date Smoking Tobacco: Former Cigarettes 2 10 964 1973 Smokeless Tobacco: Never Alcohol Use Standard [...] 10/24/2024 Are you denied basic needs [facility] as food, clothing, or medical care? No [...] st Contact Info) Description 01/23/2025 Procedure Pass [facility], [facility] [address] [address] 01/23/2025 Procedure Pass [facility] [address] [facility] [address] [place] [address] 01/23/2025 Procedure Pass [facility] [address] [facility] [address] [place] [address] 02/06/2025 10:10 AM EDT Blood Draw Laboratory Services, [facility] at [address] [address] Andressa James MD, PhD [address] [place] [id number] Mikala@[facility] 02/06/2025 11:00 AM EDT Office Visit [facility], [facility] at [address] [address] Andressa James MD, PhD [address] [place] [phone] [email or web address] [email or web address] 02/06/2025 12:00 PM EDT Infusion [facility]fusion [facility], [facility] [place] at [address] [address] Andressa James MD, PhD [address] [place] [id number] [email or web address] Yuli Mcdonnell RN [address] [place] [address] [email or web address] 02/13/2025 1:50 PM EDT Blood Draw Laboratory Services, [facility] at [address] [address] Andressa James MD, PhD [address] [place] [id number] Mikala@[facility] 02/13/2025 2:30 PM EDT Office Visit [facility], [facility] at [address] [address] Andressa James MD, PhD [address] [place] [id number] Mikala@[facility] 02/13/2025 3:30 PM EDT Infusion [facility], [facility] at [address] [address] Andressa James MD, PhD [address] [place] [phone] Mikala@[facility] Michelle Argueta RN [address] [place] [phone] [email or web address] 02/26/2025 9:55 AM EST Appointment [facility], [facility] [address] [address] Andressa James MD, PhD [address] [place] [phone] Mikala@[facility] 02/26/2025 1:30 PM EST Appointment [facility] [address] [facility] [address] [place] [address] Andressa James MD, PhD [address] [place] [phone] Mikala@[facility] 02/27/2025 1:10 PM EST Blood Draw Laboratory Services, [facility] at [address] [address] Andressa James MD, PhD [address] [place] [phone] Mikala@[facility] 02/27/2025 2:00 PM EST Office Visit [facility], [facility] at [address] [address] Andressa James MD, PhD [address] [place] [phone] Mikala@[facility] 02/27/2025 3:00 PM EST Infusion Infusion Therapy Services [facility], [facility] at [address] [address] Andressa James MD, PhD [address] [place] [phone] Mikala@[facility] Lucero [place], SHAY [address] [place] [phone] Luis Alberto @[email or web address] documented as of this encounter Visit Diagnoses Diagnosis Cholangiocarcinoma- Primary Malignant neoplasm of intrahepatic bile ducts documented in this encounter Care Teams Solar Panel Installer Relationship Specialty Start Date End Date Calin Pearson MD [address] [place] [address] [email or web address] PCP - General Internal Medicine 07/22/22 Calin Pearson MD [address] [place] [address] [email or web address] Referring Physician Internal Medicine 09/18/24 Eden Das, SHAY [address] [place] [address] [email or web address] Primary Infusion Nurse 12/05/24 Kayy Aceves RN [address] [place] [address] [email or web address] Associate Infusion Nurse 12/05/24 Sierra Glasgow RN [address] [place] [address] [email or web address] Associate Infusion Nurse 12/26/24 12/26/24 Zulema Carbajal RN [address] [place] [address] [email or web address] Associate Infusion Nurse 11/14/24 documented as of this encounter Additional Source Comments The information contained in this document represents components of the legal health record. It is not the complete legal health record.[facility]
--- OUTSIDE RECORDS SUMMARY | 2025-01-29 10:23 | XMS_ITS | Encounter Summary ---
Author Organization [facility] Address [address] [facility] [address] [place] [address] Phone Care Team Providers Care Director Visual Name Role Phone Calin Pearson MD Primary Care Provider [phone] Calin Pearson MD Unavailable Eden Das RN Unavailable [email or web address] Kayy Aceves RN Unavailable NIMA [email or web address] Zulema Carbajal RN Unavailable [email or web address] Encounter Details Date Type Department Care Team (Late st Contact Info) Description 01/15/2025 Orders Only [facility] [address] [place] [id number] Provider, MD [facility] [place] [address] Social History Tobacco Use Types Packs/Day Years Used Date Smoking Tobacco: Former Cigarettes 2 10 1 964 - 1974 Smokeless Tobacco: Never Alcohol Use Standard Drinks/Week [...] st Contact Info) Description 01/23/[facility] MRI [address] [address] 01/23/2025 Procedure Pass [facility] Teacher [place] [address] [facility] [address] [place] [address] 01/23/2025 Procedure Pass [facility] [address] [facility] [address] [place] [address] 02/06/2025 10:10 AM EDT Blood Draw Laboratory Services, [facility] at [address] [address] Andressa James MD, PhD [address] [place] [phone] Mikala@[facility] 02/06/2025 11:00 AM EDT Office Visit [facility], [facility] at [address] [address] Andressa James MD, PhD [address] [place] [address] Mikala@[facility] 02/06/2025 12:00 PM EDT Infusion [facility] South, [facility] at [address] [address] Andressa James MD, PhD [address] [place] [phone] Mikala@[facility] Yuli Mcdonnell RN [address] [place] [phone] [email or web address] 02/13/2025 1:50 PM EDT Blood Draw Laboratory Services, [facility] at [address] [address] Andressa James MD, PhD [address] [place] [phone] Mikala@[facility] 02/13/2025 2:30 PM EDT Office Visit [facility], [facility] at [address] [address] Andressa James MD, PhD [address] [place] [phone] Mikala@[facility] 02/13/2025 3:30 PM EDT Infusion Infusion Therapy Services [facility] at [address] [address] Andressa James MD, PhD [address] [place] [phone] Mikala@[facility] Michelle Argueta RN [address] [place] [phone] [email or web address] 02/26/2025 9:55 AM EST Appointment [facility], [address] [address] Andressa James MD, PhD [address] [place] [phone] Mikala@[facility] 02/26/2025 1:30 PM EST Appointment [facility] [address] [facility] [address] [place] [address] Andressa James MD, PhD [address] [place] [phone] Mikala@[facility] 02/27/2025 1:10 PM EST Blood Draw Laboratory Services, [facility] at [address] [address] Andressa James MD, PhD [address] [place] [phone] Mikala@[facility] 02/27/2025 2:00 PM EST Office Visit [facility], [facility] at [address] [address] Andressa James MD, PhD [address] [place] [phone] Mikala@[facility] 02/27/2025 3:00 PM EST Infusion Infusion Therapy Services [facility], [facility] at [address] [address] Andressa James MD, PhD [address] [place] [phone] Mikala@[facility] Lucero Palmer RN [address] [place] [phone] Luis Alberto [email or web address] documented as of this encounter Procedures Procedure Name Priority Date/Time Associated Diagnosis Comments OUTSIDE IMAGING Routine 01/15/2025 9:36 AM EDT documented in this encounter Results * Outside Imaging Report Only (01/15/2025 9:36 AM EDT) us Historical Provider MD HUDSON XR CHEST Final Res ult documented in this encounter Visit Diagnoses Not on filedocumented in this encounter Care Teams Director Visual Relationship Specialty Start Date End Date Calin Pearson MD [address] [phone] [email or web address] PCP - General Internal Medicine 07/22/22 Calin Pearson MD [address] [phone] [email or web address] Referring Physician Internal Medicine 09/18/24 Eden Das, RN [address] [place] [phone] [email or web address] Primary Infusion Nurse 12/05/24 Kayy Aceves RN [address] [place] [address] [email or web address] Associate Infusion Nurse 12/05/24 Zulema Carbajal RN [address] [place] [address] [email or web address] Associate Infusion Nurse 11/14/24 documented as of this encounter Additional Source Comments The information contained in this document represents components of the legal health record. It is not the complete legal health record.[facility]
--- OUTSIDE RECORDS SUMMARY | 2025-01-29 10:23 | XMS_ITS | Clinical Summary ---
Author Organization [facility], Address [address] [place] [address] [place] [address] Phone Care Team Providers Care Shoddy Mill Worker Name Role Phone Calin Pearson MD Primary Care Provider [phone] Allergies Active Allergy Reactions Criticality Noted Date [...] Date Diagnosed Date Hypokalemia 03/23/2022 Hypertension 03/22/2022 Encounters Date Type Department Care Team Description 10/31/2024 Telephone [facility] [address] [place] [address] Court Dur[place] from Last 3 Months Social History Tobacco [...] Due Date Last Done Comments Pneumococcal Vaccine: 50+ Years (1 of 2 - PCV) 961 Hepatitis B Vaccine (1 of 3 - Risk 3-dose series) 08/2001 Diabetes: Hemoglobin A1C 12/07/2023 Diabetes: Ophthalmology Exam 12/07/2023 Diabetes: Pedal Pulse Checked 12/07/2023 Diabetes: Sensory Foot Exam 12/07/2023 Diabetes: Visual Foot Exam 12/07/2023 Influenza Vaccine (#1) 2024 Insurance Medicare [facility] Care Teams Shoddy Mill Worker Relationship Specialty Start Date End Date Calin Pearson MD [address] PCP - General Internal Medicine 01/20/22
--- OUTSIDE RECORDS SUMMARY | 2025-01-29 10:23 | XMS_ITS | Encounter Summary ---
Author Organization [facility] Address [address] [place] [address] Care Team Providers Care Bell Person Name Role Phone Unavailable Primary Care Provider Unavailabl e Encounter Details Date Type Department Care Team (Late st Contact Info) Description 11/15/2024 Lab Requisition [facility] Three Lab [address] [place] [address] Subhash Randolph MD [address] [place] [address] Social History Tobacco Use Types Packs/Day Years [...] on file documented as of this encounter Procedures * Due to [place] Leapfactor law, this organization might not be sharing negative HIV tests. Procedure Name Priority Date/Time Associated Diagnosis Comments TISSUE EXAM Routine 11/15/2024 7:11 PM EDT documented in this encounter Results * Due to [place] [employer]ap[employer] law, this organization might not be sharing [...] by Bethany Mathews MD via security email. [facility] MANUAL 1:52 PM EDT [facility] LABOR[facility] Final Diagnosis Review of Outside Slides Received from [facility] Labeled [id number] and [id number] Procedure Date 10/22/2024: Liver, Right Lobe Lesion, Fine Needle Biopsy: - Malignant carcinoma, favor adenocarcinoma, see note. Note: Immunostains done at outside hospital showed that tumor cells are positive for CK 7 and CK20 (focally), negative for CDX2 and PAX8. Additional immunostains done at [facility] reveals that tumor cells are also positive for HNF-1B and negative for Arginase 1 and HSA. These results support the diagnosis and are consistent with pancreatobiliary tract origin. [facility] MANUAL 1:52 PM EDT [facility] Amendment electronically signed by Bethany Mathews MD on 11/28/2024 at 1352 EDT at 1506 EDT Clinical History Intrahepatic cholangiocarcinoma [facility] MANUAL 1:52 PM EDT [facility] Gross Consult Client Facility: [facility] Slide Identification: [id number] and [id number] Number of Glass Slides Received: 8 Number of Blocks Received: 0 Client Pathologist: Roberto Draper MD Accompanying Report Received: yes [facility] MANUAL 5 1:52 PM EDT [facility] Best Block for Ancillary Studies N/A [facility] MANUAL 1:52 PM EDT [facility] ANATOMIC PATHOLOGY LABORATORY Embedded Images [facility] MANUAL 5 1:52 PM EDT [facility] ANATOMIC PATHOLOGY LABORATORY Disclaimer Some of these tests were developed and their performance characteristics determined by the Immunoperoxidase/His tology Laboratory of [facility]. They have not been cleared or approved [...] to perform high complexity clinical laboratory testing. [place] MANUAL 5 1:52 PM EDT [facility] LAB[facility] Resulting Agency Case was signed out at [facility], Department of Pathology, [employer] 3 CLIA [id number] [facility] MANUAL 5 1:52 PM EDT [facility] ANATOMIC PATHOLOGY LABORATORY Report Header Surgical Pathology Report Case: [id number] Authorizing Provider: Subhash Randolph MD Collected: 11/15/20241910 Ordering Location: [facility] Received: 11/15/20241911 [facility] Three Lab Pathologist: Bethany Mathews MD Specimen: Liver, Lobe Right, Liver, right lobe lesion 1:52 PM EDT [facility] ANATOMIC PATHOLOGY LABORATORY Tissue Structure of right lobe of liver / Unknown 11/15/2024 7:11 PM EDT 11/15/2024 7:12 PM EDT us Subhash Randolph MD LAB PATHOLOGY/CYTOLOGY ORDERA BLES Edited Result - Final [facility] AN[facility] LABORATORY [address] [place] [address], documented in this encounter Visit Diagnoses Not on filedocumented in this encounter
--- OUTSIDE RECORDS SUMMARY | 2025-01-29 10:23 | XMS_ITS ---
Author Name [facility] Organization Unknown History of Medication Use Medication Directions Dispensed Refills Start Date End Date Stat us furosemideTake (oral)72995089cjyjhzWj frequency recordedoralNo set duration recordedNo set duration amount yczgjzgpgctxae21ae 06/12/2023 active azithromycinTake (oral)46730698mgxjkhId frequency recordedoralNo set duration recordedNo set duration amount wadcqraezypvkqgtu916px 05/05/2023 suspe nded budesonideTake (inhalation)41490382Bzpgl For NebulizationNo frequency recordedinhalationNo set duration recordedNo set duration amount recordedactive0.5mg/2 mL 04/04/2023 act pedro predniSONETake (oral)08448318fytmzhIs frequency recordedoralNo set duration recordedNo set duration amount wpshokzgsppesiyer50ml 03/24/2023 suspen ded levoFLOXacinTake (oral)62543896kenczkBv frequency recordedoralNo set duration recordedNo set duration amount jvnrlhlnsetpye013sf 03/06/2023 active DuleraTake (inhalation)22688734GWN Aerosol with AdapterNo frequency recordedinhalationNo set duration recordedNo set duration amount zmaezkdqalkbzx288-9xgy/actu ation 12/01/2022 active azelastineTakeNo sid e recordedNo form recordedNo frequency recordedNo route recordedNo set duration recordedNo set duration amount recordedactiveNo dosage strength recordedNo dosage strength units of measure recorded active Bactrim DSTakeNo sid e recordedNo form recordedNo frequency recordedNo route recordedNo set duration recordedNo set duration amount recordedsuspendedNo dosage strength recordedNo dosage strength units of measure recorded suspended Calcium 500TakeNo da te recordedNo form recordedNo frequency recordedNo route recordedNo set duration recordedNo set duration amount recordedactiveNo dosage strength recordedNo dosage strength units of measure recorded active D3-5000TakeNo date recordedNo form recordedNo frequency recordedNo route recordedNo set duration recordedNo set duration amount recordedactiveNo dosage strength recordedNo dosage strength units of measure recorded active ketoconazoleTake (topical)No date recordedshampooNo frequency recordedtopicalNo set duration recordedNo set duration amount recordedactive2% active GaviLyte-GTake (oral )No date recordedSolution, Reconstituted, OralNo frequency recordedoralNo set duration recordedNo set duration amount lpfizarmmcetauzpx767-79.74- 6.74-5.86 gram suspended B39OhkcIc date recor dedNo form recordedNo frequency recordedNo route recordedNo set duration recordedNo set duration amount recordedactiveNo dosage strength recordedNo dosage strength units of measure recorded active Flonase SensimistTak Rachel date recordedNo form recordedNo frequency recordedNo route recordedNo set duration recordedNo set duration amount recordedactiveNo dosage strength recordedNo dosage strength units of measure recorded active amLODIPineTake (oral )No date recordedtabletNo frequency recordedoralNo set duration recordedNo set duration amount akufyrpgocfzxp0ot active montelukastTake (ora l)No date recordedtabletNo frequency recordedoralNo set duration recordedNo set duration amount apnyhzdtsexnxcnft62cj suspen ded ibandronateTake (ora l)No date recordedtabletNo frequency recordedoralNo set duration recordedNo set duration amount vcmtfkghwcslig087df active methylPREDNISoloneTa ke (oral)No date recordedTablet, Dose PackNo frequency recordedoralNo set duration recordedNo set duration amount wxbnspqykfcfzigrn2df suspend ed sulfamethoxazole-tri methopr imTake (oral)No date recordedtabletNo frequency recordedoralNo set duration recordedNo set duration amount gedgoxlfukkkyjnds694-029bi s uspended omeprazoleTake (oral )No date recordedcapsule,delayed release (enteric coated)No frequency recordedoralNo set duration recordedNo set duration amount iqzxygmkjcoagoewo31le suspen ded triamcinolone aceton ideTake (topical)No date recordedcreamNo frequency recordedtopicalNo set duration recordedNo set duration amount recordedactive0.1% active losartanTake (oral)N o date recordedtabletNo frequency recordedoralNo set duration recordedNo set duration amount jmqfvfhkvmfqny29vp ac tive rosuvastatinTake (or al)No date recordedtabletNo frequency recordedoralNo set duration recordedNo set duration amount muscdtagmdzcpoxxf09hj suspen ded vitamin KTakeNo date recordedNo form recordedNo frequency recordedNo route recordedNo set duration recordedNo set duration amount recordedactiveNo dosage strength recordedNo dosage strength units of measure recorded active tobramycin-dexametha soneTak e (ophthalmic (eye))No date recordedsuspension, drops (final dose form)No frequency recordedophthalmic (eye)No set duration recordedNo set duration amount recordedsuspended0.3-0.1% mejia spended Allergies Allergen Reaction Severity Comment Documented Date Source Statu s DOXYCYCLINE NUMBNESS [facility] FOSAMAX CRAMPING PAIN (FINDING) [facility] AVELOX NOT INDICATED [facility] AZITHROMYCIN CRAMPING PAIN (FINDING) [facility] EPINEPHRINE NOT INDICATED [facility] FLOXIN NOT INDICATED [facility] HYTRIN NOT INDICATED [facility] Problems Problem Status Onset Date Problem Type Date of Resoluti on Source Pneumonia, unspecified organism active 2023-08-22 ProblemAct [facility] Hypertension active ProblemAct [facility] Other specified abnormal findings of blood chemistry active ProblemAct [facility] Osteoporosis active ProblemAct [facility] Other asthma active ProblemAct [facility] Eczema, allergic active ProblemAct [facility] Encounters Encounter Type Encounter Reason Primary Diagnosis Location Date Ambulatory [facility] 08/22/2023 Care Team Organization Name Specialty Phone Email Start Date End Da te [facility] PEARL PROVIDER Primary Care 08/23/2023 [facility] Calin Perez Primary Care 08/22/2023
--- OUTSIDE RECORDS SUMMARY | 2025-01-29 10:23 | XMS_ITS | Encounter Summary ---
Author Organization [facility] Address [address] [place] [address] [place] [address] Phone Care Team Providers Care Quality Assurance Qa Lab Analyst Name Role Phone Calin Pearson MD Primary Care Provider [phone] Calin Pearson MD Unavailable Justin Vazquez RN Unavailable Eden Das RN Unavailable [email or web address] .[facility] Kayy Aceves RN Unavailable NIMA [email or web address] Sierra Glasgow RN Unavailable [email or web address] Zulema Carbajal RN Unavailable [email or web address] Encounter Details Date Type Department Care Team (Late st Contact Info) Description 11/21/2024 Procedure Pass [facility] [place] [facility] [place] [address] [facility] [address] [place] [address] Social History Tobacco Use Types Packs/Day Years [...] st Contact Info) Description 01/23/2025 Procedure Pass [facility] [address] [address] 01/23/2025 Procedure Pass [facility] [address] [facility] [address] [place] [address] 01/23/2025 Procedure Pass [facility] [address] [facility] [address] [place] [address] 02/06/2025 10:10 AM EDT Blood Draw Laboratory Services, [facility] at [address] [address] Andressa James MD, PhD [address] [place] [phone] Mikala@[facility] 02/06/2025 11:00 AM EDT Office Visit [facility], [facility] at [address] [address] Andressa James MD, PhD [address] [place] [phone] Mikala@[facility] 02/06/2025 12:00 PM EDT Infusion Infusion Therapy Services South, [facility] at [address] [address] Andressa James MD, PhD [address] [place] [phone] Mikala@[facility] Yuli Mcdonnell RN [address] [place] [phone] [email or web address]@[email or web address] 02/13/2025 1:50 PM EDT Blood Draw Laboratory Services, [facility] at [address] [address] Andressa James MD, PhD [address] [place] [phone] Mikala@[facility] 02/13/2025 2:30 PM EDT Office Visit [facility], [facility] at [address] [address] Andressa James MD, PhD [address] [place] [phone] Mikala@[facility] 02/13/2025 3:30 PM EDT Infusion [facility] Services South, [facility] at [address] [address] Andressa James MD, PhD [address] [place] [phone] Mikala@[facility] Michelle Argueta, RN [address] [place] [phone] [email or web address] 02/26/2025 9:55 AM EST Appointment [facility], [facility] [address] [address] Andressa James MD, PhD [address] [place] [phone] Mikala@[facility] 02/26/2025 1:30 PM EST Appointment [facility] [address] [facility] [address] [place] [address] Andressa James MD, PhD [address] [place] [phone] Mikala@[facility] 02/27/2025 1:10 PM EST Blood Draw Laboratory Services, [facility] at [address] [address] Andressa James MD, PhD [address] [place] [phone] Mikala@[facility] 02/27/2025 2:00 PM EST Office Visit [facility], [facility] at [address] [address] Andressa James MD, PhD [address] [place] [phone] Mikala@[facility] 02/27/2025 3:00 PM EST Infusion Infusion Therapy Services South, [facility] at [address] [address] Andressa James MD, PhD [address] [place] [phone] Mikala@[facility] Lucero Palmer, SHAY [address] [place] [phone] Luis Alberto @[facility] documented as of this encounter Visit Diagnoses Not on filedocumented in this encounter Care Teams Quality Assurance Qa Lab Analyst Relationship Specialty Start Date End Date Calin Pearson MD [address] [place] [phone] [email or web address] PCP - General Internal Medicine 07/22/22 Calin Pearson MD 701 [facility] [address] [place] [address] [email or web address] Referring Physician Internal Medicine 09/18/24 Justin Vazquez, RN 300 [place] [address] [email or web address] Primary Infusion Nurse 10/04/24 12/04/24 Eden Das, SHAY [address] [place] [address] [email or web address] Primary Infusion Nurse 12/05/24 Kayy Aceves RN [address] [place] [address] [email or web address] Associate Infusion Nurse 12/05/24 Sierra Glasgow RN [address] [place] [address] Kristen@[facility] Associate Infusion Nurse 12/26/24 12/26/24 Zulema Carbajal RN [address] [place] [address] [email or web address] Associate Infusion Nurse 11/14/24 documented as of this encounter Additional Source Comments The information contained in this document represents components of the legal health record. It is not the complete legal health record.[facility]
== END 2025-01-29 09:49 | disposition home or self-care (01) ==
PROVIDERS: PCP Internal Medicine; Visit Provider Hospitalist
DX: J45.50 Severe persistent asthma, uncomplicated (principal); R91.8 Other nonspecific abnormal finding of lung field; J31.0 Chronic rhinitis; D80.1 Nonfamilial hypogammaglobulinemia; J40 Bronchitis, not specified as acute or chronic; K86.89 Other specified diseases of pancreas
CPT/HCPCS: 99214; G2211

== ENCOUNTER → 2025-01-29 09:18 | Outpatient (BNVA) | payer MEDICARE, SELFPAY | PROVIDERS: PCP Internal Medicine; Visit Provider Hospitalist | DX: J45.50 Severe persistent asthma, uncomplicated (principal); R91.8 Other nonspecific abnormal finding of lung field; Z87.891 Personal history of nicotine dependence; J31.0 Chronic rhinitis; J40 Bronchitis, not specified as acute or chronic; D80.1 Nonfamilial hypogammaglobulinemia; K86.89 Other specified diseases of pancreas; K21.9 Gastro-esophageal reflux disease without esophagitis | CPT/HCPCS: 99212 ==